=== PATIENT | female | born 1960 | race Caucasian/White ===

== ENCOUNTER 2017-01-30 08:51 | Inpatient (IN) | payer BC, OTHER ==
--- NOTE | 2017-01-17 12:24 | PAT Medication Instructions ---
Service Date Jan 17, 2017. Current Home Medication List Ascorbic Acid (Vitamin C), 500 MG PO QAM Cholecalciferol (Vitamin D3), 1 TAB PO QAM Ibuprofen (Motrin), 800 MG PO Q4H PRN for N Levothyroxine Sodium (Levothyroxine Sodium), 1 TAB PO QAM Multiple Vitamins W/ Minerals (Hair Skin and Nails Formu), 1 TAB PO QAM [Hydrocodone Apap], 1 TAB PO Q6H PRN for RN [Vitamin B12], 1 TAB PO QAM Medication Instructions For Your Scheduled Surgery - Hold the following medications the morning of surgery: [Vitamin B12], 1 TAB PO QAM Multiple Vitamins W/ Minerals (Hair Skin and Nails Formu), 1 TAB PO QAM Ascorbic Acid (Vitamin C), 500 MG PO QAM Cholecalciferol (Vitamin D3), 1 TAB PO QAM Ibuprofen (Motrin), 800 MG PO Q4H PRN (otherwise okay to continue per surgeon) - Take the following medications the morning of surgery with a sip of water OTHERWISE NOTHING TO EAT OR DRINK AFTER MIDNIGHT: [Hydrocodone Apap], 1 TAB PO Q6H PRN (okay to take if needed up to 4 hours prior to surgery) Levothyroxine Sodium (Levothyroxine Sodium), 1 TAB PO QAM - Take the following medications as scheduled the night before surgery: [Hydrocodone Apap], 1 TAB PO Q6H PRN If you have any questions please call us at [phone] or [phone] or [phone]
--- NOTE | 2017-01-17 13:18 | DIAGNOSTIC IMAGING REPORT ---
CHEST 2 VIEWS ROUTINE CLINICAL HISTORY: Preoperative chest COMPARISON STUDY: No previous studies for comparison. FINDINGS: The cardiac and mediastinal contours are normal. There is no evidence of focal pulmonary consolidation. There is no evidence of failure. No pleural effusions are visualized.[ There are old healed clavicular fractures. IMPRESSION: No active disease in the chest. Electronically signed by: Michael Thomas M.D. 01/17/2017 1:16 PM Dictated Date/Time: 01/17/2017 1:12 PM
[2017-01-17 13:49] LABS: BASO % 0.6 %; BASO ABS # 0.03 K/uL (0-0.2); COMPLETE YES; EOS % 2.9 %; HEMATOCRIT 41.9 % (37-47); IG% 0.4 %; LYMPH % 28.8 %; LYMPH ABS # 1.51 K/uL (1.2-3.4); MEAN CELL VOLUME 86.2 fL (80-100); MEAN CORPUSCULAR HEMOGLOBIN 30.2 pg (25-34); MEAN CORPUSCULAR HGB CONC 35.1 g/dl (32-36); MONO % 7.6 %; NEUT % 59.7 %; PLATELET COUNT 260 K/uL (130-400); RED BLOOD COUNT 4.86 M/uL (4.2-5.4); WHITE BLOOD COUNT 5.25 K/uL (4.8-10.8)
[2017-01-17 13:52] LABS: PARTIAL THROMBOPLASTIN RATIO 0.9; PROTHROMBIN TIME (PATIENT) 10.5 SECONDS (9.0-12.0)
[2017-01-17 14:03] LABS: ESTIMATED AVERAGE GLUCOSE 100 mg/dl; HA1C FLAG Normal (Normal)
[2017-01-17 14:05] LABS: URINE APPEARANCE CLEAR (CLEAR); URINE BILIRUBIN NEG (NEG); URINE COLOR YELLOW; URINE EPITHELIAL CELL AUTO >30 /lpf (0-5); URINE NITRITE NEG (NEG); URINE PH 6.5 (4.5-7.5); UROBILINOGEN NEG (NEG)
[2017-01-17 14:07] LABS: MANUAL MICROSCOPIC REQUIRED? NO; REVIEW REQ? NO
[2017-01-17 14:50] LABS: BUN/CREATININE RATIO 19.1 (10-20); CALCIUM 9.2 mg/dl (8.5-10.1); CREATININE 0.75 mg/dl (0.60-1.20); POTASSIUM 4.4 mmol/L (3.5-5.1)
--- NOTE | 2017-01-29 14:36 | HISTORY & PHYSICAL EXAMINATION ---
DATE OF ADMISSION: 01/30/2017 CHIEF COMPLAINT: Left knee pain. HISTORY OF PRESENT ILLNESS: The patient is a 56-year-old female with known osteoarthritis about her left knee. She has had previous corticosteroid injections as well as over the counter anti-inflammatory use. She continues to have pain and disability with activities of daily living. She has pain with prolonged weightbearing and standing activities. She has difficulty with kneeling, bending, and squatting activities. Due to ongoing pain and disability, she now desires to proceed with left total knee arthroplasty. PAST MEDICAL HISTORY: Hypothyroidism. PAST SURGICAL HISTORY: Tubal ligation, bladder surgery, and breast surgery. MEDICATIONS: [place] 5/325 q. 6 hours p.r.n. pain, ibuprofen 800 mg q. 8 hours p.r.n., vitamin B12 at 1000 mcg daily, vitamin C 500 mg daily, vitamin D 1000 units daily, and levothyroxine sodium 75 mcg daily. ALLERGIES: No known drug allergies. SOCIAL HISTORY AND REVIEW OF SYSTEMS: Noncontributory. PHYSICAL EXAMINATION: GENERAL: Well-nourished and well-developed, thin female, who appears her stated age. HEENT: Normocephalic and atraumatic. Extraocular movements intact. Oropharynx is pink and moist. NECK: Supple without adenopathy. LUNGS: Clear to auscultation bilaterally. HEART: Regular rate and rhythm. ABDOMEN: Soft, nontender, and nondistended. EXTREMITIES: The upper extremities are within normal limits. The left knee has a slight varus alignment. She complains primarily of medial compartment pain. Her range of motion is from 0-135 degrees. X-RAYS: X-rays were reviewed. She has a varus aligned knee. She has [id number] arthritis of the medial compartment with complete loss of the joint space. There is mild osteophyte formation about the medial compartment. She has mild to moderate degenerative change about the patellofemoral joint as well. ASSESSMENT: Left knee degenerative joint disease. PLAN: Risks versus benefits were discussed. Consent was obtained. The patient's primary care physician is [facility] in [place]. We will proceed with left total knee arthroplasty upon preop workup and medical clearance.
[2017-01-30] VITALS (7 sets, daily range): BP systolic 108–138; BP diastolic 65–85; PULSE 89–108; TEMP 36.2–36.9; O2SAT 94–100; Ht 149.9 cm; Wt 67.6 kg
[~2017-01-30] VITALS: Ht 149.9 cm; Wt 67.6 kg
[2017-01-30] MEDS: TRANEXAMIC ACID INJ 1,000 MG in SODIUM CHLORIDE 0.9% 100ML 100 ML IV SCH ×2 (06:30→11:19)
[~2017-01-30 08:51] MED LIST: ACETAMINOPHEN 500 MG TAB PO SCH; ASCO500T3 PO; BUPIVACAINE 0.25% 30 ML VIAL ONE; BUPIVACAINE 0.5 % 5 MG/1 ML PF 10ML VIAL ONE; CEFAZOLIN 1000MG IV PUSH 5 ML IV SCH; CHOL1000 PO; CeleBREX 200 MG CAP PO SCH; DEXAMETHASONE 4 MG TAB PO SCH; FAMOTIDINE 20 MG TAB PO SCH; GABAPENTIN 300 MG CAP PO SCH; HYDROCODONE APAP PO; IBUP-1428 PO; LACTATED RINGER'S 1000ML 1,000 ML IV SCH; LACTATED RINGER'S 1000ML 500 ML IV ONE; LACTATED RINGER'S 1000ML IV SCH; LEVO75TA5 PO; METOCLOPRAMIDE HCL 10 MG TAB PO SCH; MISSING PHYSICIAN SIGNATURE ON ORDER SCH; MULT-1018 PO; ROPIVACAINE 5MG/ML 30 ML 150 MG, BUPIVACAINE/EPINEPHR 0.5% MPF 30 ML, KETOROLAC TROMETH... INFIL SCH; VITAMIN B12 PO
[2017-01-30] MEDS ORDERED: FENTANYL CITRATE INJ 50 MCG/1 ML 2 ML VIAL IV PRN (09:00)
[2017-01-30] MEDS ORDERED: ONDANSETRON INJ 2 MG/ML 2 ML VIAL IV PRN ×2 (09:00→13:30)
[2017-01-30] MEDS ORDERED: ATROPINE SULFATE 0.1 MG/ML 5ML SYR IV PRN (09:00)
[2017-01-30] MEDS ORDERED: EpHEDrine SULFATE INJ 50 MG/ML AMP IV PRN (09:00)
--- NOTE | 2017-01-30 09:41 | History & Physical Bridge Note ---
H&P Re-Evaluation Bridge Note: I have examined the patient, reviewed the History & Physical and in the interval since the performance of the History & Physical I have noted the following changes of clinical significance: No changes noted
[2017-01-30] MEDS ORDERED: FENTANYL CITRATE INJ 50 MCG/1 ML 2 ML VIAL ONE (10:11)
[2017-01-30] MEDS ORDERED: MIDAZOLAM HCL 1 MG/ML 2ML VIAL ONE ×2 (10:11)
[2017-01-30] MEDS ORDERED: POVIDONE-IODINE OP SOLN 30 ML BTL ONE (11:27)
[2017-01-30] MEDS ORDERED: ORTHO JOINT ANESTHETIC ONE (11:27)
[2017-01-30] MEDS ORDERED: BACITRACIN 50000 UNIT VIAL ONE (11:27)
[2017-01-30] MEDS ORDERED: PROPOFOL IV EMULSION 10 MG/ML 20 ML VIAL IV ONE (12:39)
[2017-01-30] MEDS ORDERED: ONDANSETRON INJ 2 MG/ML 2 ML VIAL ONE (12:39)
[2017-01-30] MEDS ORDERED: LIDOCAINE HCL 2% 2 ML VIAL (20MG/ML) ONE (12:39)
--- NOTE | 2017-01-30 12:45 | [facility] Post Operative Brief Note ---
Immediate Operative Summary Operative Date Jan 30, 2017. Pre-Operative Diagnosis Left knee degenerative joint disease Post-Operative Diagnosis same as pre-operative Procedure(s) Performed Left total knee arthroplasty-cemented Surgeon Dr. Chicas [employer] Surgeon(s) Abel Garcia PA-C Estimated Blood Loss 20ml Findings severe oa Specimens Specimen A: Left knee bone and tissue Complication(s) None Disposition Recovery Room / PACU
--- NOTE | 2017-01-30 13:09 | OPERATIVE REPORT ---
DATE OF OPERATION: 01/30/2017 PREOPERATIVE DIAGNOSIS: Osteoarthritis, left knee. POSTOPERATIVE DIAGNOSIS: Osteoarthritis, left knee. PROCEDURE: Left total knee arthroplasty. SURGEON: Dr. Chicas. MECHANICAL SHOVEL OPERATOR: JULIO Ball ANESTHESIA: Spinal. COMPLICATIONS: None. IMPLANTS USED: Femoral size 2, tibia size 1, tibial poly 9, and patella size 29. OPERATION AND FINDINGS: Following induction of spinal anesthesia, the patient's left leg was prepped and draped in the usual sterile manner. Limb was exsanguinated with an Esmarch bandage and tourniquet was inflated to 350 mmHg. A longitudinal incision was made anteriorly. Subcutaneous tissue was sharply dissected. Electrocautery was used for hemostasis. Prepatellar bursa was incised and median parapatellar incision was performed. Patella was everted and the knee was flexed. Fat pad was removed to aid in visualization and the anterior and posterior cruciate ligaments were removed. The medial face of the tibia was cleared of soft tissue first with a Bovie and a Gomez elevator. This tissue was retracted posteriorly using a blunt Hohmann. A [place] retractor was used to expose the synovium above on the anterior aspect of the femur and this was removed down to bone. The PSI guide was placed on the distal femur and two pins were placed anteriorly and kept in position and two additional pins were placed distally and removed. The distal femoral cutting block was placed in position and the distal femoral cut was used in the +0 setting. Next, the cutting block was removed and the femoral 2 block was placed in the distal end of the femur. Care was taken to ensure appropriate external rotation and feeler gauge was used to ensure no notching would occur. The femoral block was centered on the distal femur and in the medial and lateral direction and was fixed using two bone screws. The gold pins were then removed. The oscillating saw was used to create the bone cuts and the distal femoral cutting block was removed and the reciprocating saw was used to further trim the femoral cuts as well as a deep in the area for the trochlear groove. Next, posterior condyle remnants were removed. Following this, a meniscal clamp and knife were utilized to remove the anterior portion of both medial and lateral meniscus. The proximal tibia PSI guide was placed into position and the proximal tibial cutting guide was screwed into position. The extra medullary alignment guide was utilized to ensure appropriate alignment. The proximal tibia was cut and the proximal tibial cutting block was removed and this bone fragment was removed. The appropriate guide was used to perform the notch cut on the distal femur and a lamina salesperson flowers and a cochlear knife were utilized to finish both medial and lateral meniscectomies to remove any remnants of the posterior or anterior cruciate ligaments. Following this, the distal femoral component was impacted into position and blunt [place] was used to sublux the tibia anteriorly. The proximal tibia was sized and a 1 tibial tray was chosen as the size to be used. This was put into position and appropriate external rotation and a double check with extramedullary alignment guide was performed. The canal for the tibial stem was prepared first with a 17 mm drill and then the punch and a mallet and the trial tibial poly was placed. A 9 was chosen the size to be used. It was brought to extension and the patella was prepared with the patellar reamer. A 29 component was chosen the size to be used. The trial component was placed and knee was taken through a full range of motion and there was found to be no lateral subluxation of the tibia. No lateral release was required. The trials were all removed. The final components were obtained and assembled. Cement was mixed. The knee was thoroughly irrigated and the ortho mix was injected about the knee joint. The final components were cemented into position. After thoroughly suctioning and drying the bone ends, all excess cement was removed. The knee was held in extension while the cement hardened. The wound was irrigated and closed over a Hemovac drain. #1 Vicryl was used to close the extensor mechanism. Subcutaneous tissues closed using 0 Dexon. Skin was closed with guillermina. Sterile dressing of Adaptic, 4 x 4's, sterile Webril, and Kvng was applied. The patient tolerated the procedure well. Due to the complex nature of the procedure, the entire surgery was performed with the operational assistance of JULIO Ball. The activities assistant, under direct supervision, was involved in the actual performance of all aspects of the surgical procedure including hemostasis, tissue retraction and incision, instrument management, patient positioning, and wound closure. DISPOSITION: Recovery room, stable. I attest to the content of the Intraoperative Record and any orders documented therein. Any exception s are noted below.
[2017-01-30] MEDS ORDERED: ALUMINUM/MAGNESIUM/SIMETH (MAALOX MAX) 30 ML UDC PO PRN (13:30)
[2017-01-30] MEDS ORDERED: MoRPHine SULFATE 2 MG/ML CARP IV PRN (13:30)
[2017-01-30] MEDS ORDERED: ZOLPIDEM TARTRATE 5 MG TAB PO PRN (13:30)
[2017-01-30] MEDS ORDERED: METOCLOPRAMIDE HCL INJ 5 MG/ML 2 ML VIAL IV PRN (13:30)
--- NOTE | 2017-01-30 13:49 | DIAGNOSTIC IMAGING REPORT ---
TWO VIEWS LEFT KNEE CLINICAL HISTORY: Postoperative examination. FINDINGS: AP and crosstable lateral portable views of the left knee are obtained. A left knee arthroplasty is in near anatomic alignment. There has been undersurface remodeling of the patella. No acute fracture is seen. There are expected postoperative changes around the knee including a surgical drain, soft tissue edema, and subcutaneous gas. IMPRESSION: Expected postoperative changes status post left knee arthroplasty. No acute fracture is seen. Electronically signed by: Casper Geronimo M.D. 01/30/2017 1:48 PM Dictated Date/Time: 01/30/2017 1:47 PM
--- NOTE | 2017-01-30 13:51 | Anesthesiology Progress Note ---
Anesthesia Post Op Note Date & Time Jan 30, 2017 at 13:50 Vital Signs Pain Intensity: 0 Vital Signs Past 12 Hours Date Time Temp Pulse Resp B/P (MAP) Pulse Ox O2 Delivery O2 Flow Rate FiO2 01/30/17 13:40 81 16 115/76 98 Nasal Cannula 2 01/30/17 13:30 77 16 105/65 98 Nasal Cannula 2 01/30/17 13:20 36.1 87 16 97/61 97 Nasal Cannula 2 01/30/17 09:19 36.8 90 20 128/85 95 Room Air Notes Mental Status: alert / awake / arousable, participated in evaluation Pt Amnestic to Procedure: Yes Nausea / Vomiting: adequately controlled Pain: adequately controlled Airway Patency, RR, SpO2: stable & adequate BP & HR: stable & adequate Hydration State: stable & adequate Neuraxial Anesthesia: was administered, sensory block is resolving Anesthetic Complications: no major complications apparent
[2017-01-30] MEDS ORDERED: MoRPHine SULFATE 4 MG/ML 1 ML CARP\\VIAL IV PRN (15:15)
[2017-01-30] MEDS: D5W AND 1/2NSS + 20MEQ KCL 1,000 ML IV SCH (15:31)
[2017-01-30] MEDS: KETOROLAC TROMETHAMINE 30 MG/ML VIAL IV. SCH ×2 (15:33→22:07)
[2017-01-30] MEDS: ACETAMINOPHEN 500 MG TAB PO SCH ×2 (16:34→22:07)
[2017-01-30] MEDS: FERROUS GLUCONATE 324 MG TAB PO SCH (18:40)
[2017-01-30] MEDS: OXYCODONE HCL IR 5 MG TAB (IMMEDIATE RELEASE) PO PRN (19:03)
[2017-01-30] MEDS: CEFAZOLIN IV 1,000 MG in SYRINGE 0 ML IV SCH (19:39)
[2017-01-30] MEDS: ASPIRIN 81 MG ECTAB PO SCH (21:05)
[2017-01-30] MEDS: DOCUSATE SODIUM 100 MG CAP PO SCH (21:05)
[2017-01-31] VITALS (8 sets, daily range): BP systolic 102–160; BP diastolic 65–83; PULSE 75–94; TEMP 36.6–37.1; O2SAT 95–98
[2017-01-31] MEDS: OXYCODONE HCL IR 5 MG TAB (IMMEDIATE RELEASE) PO PRN ×4 (00:06→19:47)
[2017-01-31] MEDS: D5W AND 1/2NSS + 20MEQ KCL 1,000 ML IV SCH ×2 (00:26→10:54)
[2017-01-31] MEDS: KETOROLAC TROMETHAMINE 30 MG/ML VIAL IV. SCH ×2 (04:00→09:50)
[2017-01-31] MEDS: CEFAZOLIN IV 1,000 MG in SYRINGE 0 ML IV SCH (04:01)
[2017-01-31] MEDS: ACETAMINOPHEN 500 MG TAB PO SCH ×3 (05:27→21:30)
[2017-01-31] MEDS: LEVOTHYROXINE 75 MCG TAB PO SCH (05:27)
[2017-01-31 06:37] LABS: HEMATOCRIT 27.8 % (37-47); MEAN CELL VOLUME 87.4 fL (80-100); MEAN CORPUSCULAR HEMOGLOBIN 29.6 pg (25-34); MEAN CORPUSCULAR HGB CONC 33.8 g/dl (32-36); MEAN PLATELET VOLUME 8.4 fL (7.4-10.4); PLATELET COUNT 222 K/uL (130-400); RED BLOOD COUNT 3.18 M/uL (4.2-5.4); WHITE BLOOD COUNT 8.38 K/uL (4.8-10.8)
[2017-01-31 07:07] LABS: BUN/CREATININE RATIO 16.4 (10-20); CALCIUM 7.8 mg/dl (8.5-10.1); CREATININE 0.77 mg/dl (0.60-1.20); POTASSIUM 4.3 mmol/L (3.5-5.1)
[2017-01-31] MEDS ORDERED: DEXAMETHASONE INJ 10 MG in SYRINGE 0 ML IV SCH (07:30)
--- NOTE | 2017-01-31 08:25 | Orthopedic Progress Note ---
Orthopedic Progress Note Date of Service Jan 31, 2017. Subjective Post OP Day: 1 Reports: feeling well, Denies: complaints Objective calves soft nontender, N/V intact, dressing C/D/I, A&O x3, toes mobile Date Time Temp Pulse Resp B/P (MAP) Pulse Ox O2 Delivery O2 Flow Rate FiO2 01/31/17 07:20 Room Air 01/31/17 06:51 36.7 90 16 113/68 (83) 98 Room Air 01/31/17 03:32 36.6 84 16 102/65 (77) 95 Room Air 01/31/17 00:29 Room Air 01/30/17 23:52 36.6 91 16 117/72 (87) 94 Room Air 01/30/17 18:35 36.7 108 17 138/76 (96) 96 Room Air 01/30/17 17:07 36.9 94 17 108/65 (79) 96 Room Air 01/30/17 16:06 36.6 101 18 119/76 (90) 98 Nasal Cannula 2.0 01/30/17 15:02 36.2 90 17 129/79 (96) 100 Nasal Cannula 2.0 01/30/17 14:00 97 Nasal Cannula 2.0 01/30/17 14:00 36.2 89 16 127/83 (98) 97 Nasal Cannula 2.0 01/30/17 14:00 97 Nasal Cannula 2.0 01/30/17 13:50 36.6 88 16 122/73 98 Nasal Cannula 2 01/30/17 13:40 81 16 115/76 98 Nasal Cannula 2 01/30/17 13:30 77 16 105/65 98 Nasal Cannula 2 01/30/17 13:20 36.1 87 16 97/61 97 Nasal Cannula 2 01/30/17 09:19 36.8 90 20 128/85 95 Room Air Laboratory Results 24 Hours: Test 01/31/17 06:27 Hematocrit 27.8 % Hemoglobin 9.4 g/dL Assessment & Plan Assessment: POD 1 s/p Left TKA Plan: PT/OT Planning for OPPT. Plan for dc to home Friday. Inhouse Planning Pain Management: Celebrex, Toradol, Morphine, PO Tylenol, Oxy IR DVT Prophylaxis: TEDs, SCDs, ASA Discharge Planning Discharge Planning: home with oppt
[2017-01-31] MEDS: DOCUSATE SODIUM 100 MG CAP PO SCH ×2 (08:29→21:30)
[2017-01-31] MEDS: ASPIRIN 81 MG ECTAB PO SCH ×2 (08:29→21:30)
[2017-01-31] MEDS: MULTIVITAMIN TAB PO SCH (08:29)
[2017-01-31] MEDS: FERROUS GLUCONATE 324 MG TAB PO SCH ×3 (08:30→17:32)
[2017-01-31] MEDS: PANTOprazole SOD 40 MG TAB PO SCH (08:30)
--- NOTE | 2017-01-31 08:30 | Anesthesiology Progress Note ---
Anesthesia Post Op Note Date & Time Jan 31, 2017 at 08:30 Vital Signs Pain Intensity: 5.0 Vital Signs Past 12 Hours Date Time Temp Pulse Resp B/P (MAP) Pulse Ox O2 Delivery O2 Flow Rate FiO2 01/31/17 07:20 Room Air 01/31/17 06:51 36.7 90 16 113/68 (83) 98 Room Air 01/31/17 03:32 36.6 84 16 102/65 (77) 95 Room Air 01/31/17 00:29 Room Air 01/30/17 23:52 36.6 91 16 117/72 (87) 94 Room Air Notes Mental Status: alert / awake / arousable, participated in evaluation Pt Amnestic to Procedure: Yes Nausea / Vomiting: adequately controlled Pain: adequately controlled Airway Patency, RR, SpO2: stable & adequate BP & HR: stable & adequate Hydration State: stable & adequate Neuraxial Anesthesia: was administered, sensory block resolved Anesthetic Complications: no major complications apparent
[2017-01-31] MEDS ORDERED: ACET-24 PO (08:41)
[2017-01-31] MEDS ORDERED: CLB200 PO (08:41)
[2017-01-31] MEDS ORDERED: ASPEC81 PO (08:41)
[2017-01-31] MEDS ORDERED: ONDA8TAB6 PO (08:41)
[2017-01-31] MEDS ORDERED: RXC5 PO (08:41)
--- NOTE | 2017-01-31 08:43 | Discharge Instructions ---
Discharge Instructions Date of Service Jan 31, 2017. Admission Reason for Admission: Left Knee Osteoarthritis Discharge Discharge Diagnosis / Problem: SP LEFT TKA Discharge Goals Goal(s): Decrease discomfort, Improve function, Increase independence Activity Recommendations Activity Limitations: per Instructions/Follow-up section . Instructions / Follow-Up Instructions / Follow-Up ACTIVITY RECOMMENDATIONS: SELF CARE INSTRUCTIONS AFTER TOTAL KNEE REPLACEMENT A. You may need to continue a physical therapy program after discharge from the hospital. There are several options available to you. Your doctor will assist you in selecting the best one for you. 1. An out-patient facility 2 to 3 times a week for therapy or home therapy. 2. Continue working on all exercises taught to you in the hospital. Your goals should be to increase bending of your knee to 90 degrees and beyond and to fully straighten your knee. B. You may progress at your own pace from walking with a walker or crutches to a cane; then to no assistive devices. C. Make walking a part of your daily routine. Be up as much as comfortable with rest periods throughout the day. Rest with leg elevation is very important. Use the ice wrap frequently for the first 3-4 weeks. D. There are no restrictions on activities. You may ride in a car, shop, participate in beater worker helper and all social activities. E. Wear the long elastic stockings (CHRYSTAL hose) 20 hours a day for 2 weeks after surgery. They can be removed several times a day for laundering and for a bath. F. You may shower, no tub baths until cleared by your doctor. SPECIAL CARE INSTRUCTIONS: VERY IMPORTANT TO READ AND REVIEW A. There are a few signs you need to watch for after you are home. Call [facility] if you notice any of the followin. Increased severe knee pain. Some pain is expected especially when you exercise. 2. Increased swelling in your leg or knee; pain or swelling of the calf muscle in either lower leg. 3. Any fluid drainage from the incision. 4. Shortness of breath or chest pain. B. Please call [facility] at if you have any concerns or questions about your operation or recovery. The doctor or his nurse will return your call promptly. C. You must take antibiotics before dental work, bladder, bowel or other surgery. Your doctor will provide you with a permanent care to carry describing this precaution. IMPORTANT: * REMEMBER TO TAKE ASPIRIN, 81 MG, TWICE DAILY FOR 4 WEEKS UNLESS OTHERWISE DIRECTED. THIS IS YOUR BLOOD THINNER. * HIGH RISK PATIENTS MAY BE PRESCRIBED A STRONGER BLOOD THINNER. THIS WILL BE PROVIDED AT DISCHARGE. * CALL IF INCREASED PAIN, REDNESS, DRAINAGE OR FEVER GREATER THAT 101. * WEAR CHRYSTAL HOSE 20 HOURS PER DAY FOR 2 WEEKS. * YOU MAY HAVE A LARGE BAND-AID LIKE DRESSING (SILVERON). THIS WILL REMAIN ON YOUR INCISION FOR 7 DAYS, THEN CAN BE REMOVED. IF INCISION IS LEAKING THROUGH DRESSING, CALL THE OFFICE . UNDER THE SILVERLON, YOU HAVE A ZIPLINE CLOSURE. THIS IS IN PLACE OF [place]. KEEP THIS COVERED IT MAY CATCH ON YOUR CLOTHING. THIS WILL BE REMOVED AT YOUR 2 WEEK POST OP VISIT. OK TO SHOWER. FOLLOW UP VISIT: If appointment is not already scheduled: Please call [facility] to make a follow-up appointment for 2 weeks after your surgery at . Current Hospital Diet Patient's current hospital diet: Regular Diet Discharge Diet Recommended Diet: Regular Diet Procedures Procedures Performed: Left total knee arthroplasty-cemented Pending Studies Studies pending at discharge: no Laboratory Results Hemoglobin A1c Test 01/17/17 12:38 Range/Units Estimated Average Glucose 100 mg/dl Hemoglobin A1c 5.1 4.5-5.6 % Medical Emergencies . Who to Call and When: Medical Emergencies: If at any time you feel your situation is an emergency, please call 911 immediately. . Non-Emergent Contact Non-Emergency issues call your: Surgeon . "Provider Documentation" section prepared by Tessy Liu. . VTE Core Measure Inpt VTE Proph given/why not?: Other Anticoagulation, T.E.D. Stockings, SCD's [place] Drug Monitoring Program Search Results: patient reviewed within database, no issues identified
[2017-01-31] MEDS: MAGNESIUM HYDROXIDE SUSP 30 ML UDC PO PRN ×2 (09:50→16:08)
[2017-01-31] MEDS ORDERED: NURSING VERBAL MED ORDER ONE (10:45)
[2017-01-31] MEDS: CeleBREX 200 MG CAP PO SCH (21:30)
[2017-02-01] MEDS: OXYCODONE HCL IR 5 MG TAB (IMMEDIATE RELEASE) PO PRN ×3 (00:27→11:36)
[2017-02-01] MEDS: ACETAMINOPHEN 500 MG TAB PO SCH (06:08)
[2017-02-01] MEDS: LEVOTHYROXINE 75 MCG TAB PO SCH (06:08)
[2017-02-01 06:32] VITALS: BP 137/86; PULSE 88; TEMP 36.9; O2SAT 97
[2017-02-01] MEDS: PANTOprazole SOD 40 MG TAB PO SCH (07:37)
[2017-02-01] MEDS: FERROUS GLUCONATE 324 MG TAB PO SCH (07:37)
[2017-02-01] MEDS: DOCUSATE SODIUM 100 MG CAP PO SCH (07:37)
[2017-02-01] MEDS: MULTIVITAMIN TAB PO SCH (07:37)
[2017-02-01] MEDS: ASPIRIN 81 MG ECTAB PO SCH (07:37)
[2017-02-01] MEDS: CeleBREX 200 MG CAP PO SCH (07:37)
--- NOTE | 2017-02-01 08:41 | Orthopedic Progress Note ---
Orthopedic Progress Note Date of Service Feb 01, 2017. Subjective Post OP Day: 2 Reports: feeling well, Denies: chest pain, SOB, nausea / vomiting, light headedness, calf pain Additional Notes: SILVERLON DRESSING SATURATED Objective calves soft nontender, N/V intact, capillary refill less than 2 sec., incision C /D/I (SILVERLON WINDOW SATURATED WITH BLOODY DRAINAGE. REMOVED. NO ACTIVE BLEEDING. APPLIED PRESSURE DRESSING.), A&O x3, toes mobile Date Time Temp Pulse Resp B/P (MAP) Pulse Ox O2 Delivery O2 Flow Rate FiO2 02/01/17 06:32 36.9 88 16 137/86 (103) 97 Room Air 01/31/17 23:45 Room Air 01/31/17 23:30 36.9 94 16 138/83 (101) 95 Room Air 01/31/17 19:40 Room Air 01/31/17 16:12 37.1 92 17 135/80 (98) 96 Room Air 01/31/17 12:29 36.9 82 21 150/82 (104) 95 Room Air 01/31/17 10:01 97 Room Air 01/31/17 09:10 36.9 75 20 148/82 (104) 97 Room Air Assessment & Plan Assessment: POD 2 s/p Left TKA Plan: PT/OT Planning for OPPT. Plan for dc to home Friday. DVT PROPH- ASA PAIN MANAGEMENT- JUSTINO, TYLENOL PRESSURE DRESSING TO INCISION. WILL RECHECK AT LUNCH TIME. IF NO FURTHER DRAINAGE, CAN REAPPLY SILVERLON AND DC HOME. Inhouse Planning Pain Management: Celebrex, Toradol, Morphine, PO Tylenol, Oxy IR DVT Prophylaxis: TEDs, SCDs, ASA Discharge Planning Discharge Planning: home with oppt
[2017-02-01 11:47] VITALS: BP 137/86; PULSE 88; TEMP 36.9; O2SAT 97
--- NOTE | 2017-02-12 08:18 | DISCHARGE SUMMARY ---
CHIEF COMPLAINT: Left knee pain. Please see complete history and physical examination. HOSPITAL COURSE: The patient underwent left total knee arthroplasty without complication. She tolerated the procedure well and was discharged to recovery room in stable condition. Her postoperative course was relatively uneventful. Her postoperative pain was reasonably well controlled with a combination of spinal anesthesia, intraoperative joint injection, IV, and oral pain medications. She was started on aspirin for DVT prophylaxis. She also utilized CHRYSTAL stockings and SCDs for additional prophylaxis. Her H&H was stable and did not require transfusion. Her surgical drain was discontinued by postoperative day 2, her surgical dressing will remain in place for approximately 7 days postoperative. She tolerated postoperative physical therapy reasonably well where she was bending her knee and ambulating appropriately. She was discharged home on postoperative day 2. She will continue her physical therapy at home. She will continue her aspirin for DVT prophylaxis and follow up in our office in approximately 10-14 days for initial postop evaluation.
== END 2017-02-01 12:50 | disposition home or self-care (01) | DRG 470 ==
LOC: C.ACU 08:51 → C.3E 10:24 → ENRESERV 13:42
PROC: 0SRD0J9 Replacement of Left Knee Joint with Synthetic Substitute, Cemented, Open Approach (ICD-10-PCS; principal; 2017-01-30 11:45)
DX: M17.12 Unilateral primary osteoarthritis, left knee (principal); E03.9 Hypothyroidism, unspecified; E66.9 Obesity, unspecified; Z68.30 Body mass index [BMI] 30.0-30.9, adult

== ENCOUNTER 2020-04-10 14:21 | Inpatient (IN) ==
--- NOTE | 2020-04-10 16:09 | Emergency Department Note ---
Impression & Plan Acute respiratory failure with hypoxia, Pneumonia due to COVID-19 virus, Admitted to intensive care unit ED Provider Note CHIEF COMPLAINT: Shortness of breath HISTORY OF PRESENTING ILLNESS: This is a 59-year-old female who presents to the emergency department with complaint of shortness of breath. 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 She states that she started feeling like she had a cold about 3 days ago with a mild cough and feeling rundown. She did not start feeling short of breath until today. The shortness of breath is worse with exertion and better at rest, although she notes that she feels short of breath at rest now. She denies any chest pain, but does note that she has some tightness in her chest when she coughs. She denies any history of cardiac or lung problems. She is a former smoker from many years ago and denies any history of asthma or COPD. She denies any headaches, fevers, chills, back pain, abdominal pain, nausea/vomiting, diarrhea, urinary complaints, loss of taste or smell. 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 REVIEW OF SYSTEMS: A complete 10 point review of systems was reviewed with the patient with pertinent positives and negatives as per history of present illness. All else were negative. PAST MEDICAL HISTORY: Dyslipidemia, hypothyroidism, depression, anxiety SOCIAL HISTORY: Lives at home, she is a former smoker ALLERGIES: No known allergies PHYSICAL EXAM: CONSTITUTIONAL: Pleasant and cooperative. Nontoxic-appearing and in no acute distress. Mildly dehydrated, but otherwise well appearing and well nourished. HEENT: Normocephalic, atraumatic. Pharynx normal. Tacky mucous membranes. NECK: Supple, full active range of motion without discomfort. No cervical adenopathy. RESPIRATORY: Diffuse bilateral rhonchi without wheezing, crackles, or stridor. Mildly labored breathing and mildly tachypneic, but no accessory muscle use. Equal expansion bilaterally. CARDIOVASCULAR: Tachycardic, regular rhythm with no murmurs, rubs or gallops. Normal peripheral perfusion, 2+ distal pulses in all 4 extremities. No pitting edema. GASTROINTESTINAL: Soft, nontender, nondistended, obese abdomen. No palpable masses or HSM. Bowel sounds present in all quadrants. MUSCULOSKELETAL: No calf tenderness to palpation bilaterally. Negative Homans' sign bilaterally. Full range of motion of all joints without discomfort. INTEGUMENTARY: No rash or other significant dermatologic conditions noted. NEUROLOGIC: Alert and oriented X 4 with normal affect. Normal strength and sensation in all 4 extremities. Normal speech. Normal gait observed. ED COURSE AND MEDICAL DECISION MAKING: CC: Patient presenting with complaint of shortness of breath DIFFERENTIAL DIAGNOSIS: Includes, but not limited to COVID-19 infection, influenza, bronchitis, pneumonia, pulmonary embolism, acute coronary syndrome, pneumothorax, pulmonary edema, among others. INTERPRETATION OF LABS: Leukopenia, no anemia, normal platelets, no significant electrolyte abnormalities, normal renal function, normal liver enzymes. Troponin is within normal limits, but slightly detectable. Coagulation factors within normal limits. Influenza A/B negative. SARS-CoV-2 RNA is POSITIVE. IMAGING: XR chest 1V portable CLINICAL HISTORY: Shortness of breath COMPARISON STUDY: 10/22/2019 FINDINGS: The heart is borderline enlarged. There are diffuse bilateral groundglass pulmonary opacities. Diagnostic considerations include pulmonary edema, multifocal pneumonia, or rare entities such as acute interstitial lung disease, or alveolar proteinosis.[ IMPRESSION: 1. Diffuse bilateral groundglass pulmonary opacities. Likely diagnostic considerations include pulmonary edema versus a multifocal pneumonia. Clinical and radiographic follow-up is recommended EKG: Shows sinus tachycardia with a rate of 109 bpm, normal intervals, no ectopy, nonspecific T wave changes in several leads, but no ST elevation or depression and no significant change when compared to previous EKG from 10/22/2019 by my interpretation. MEDICATION RECONCILIATION: I attest that I have personally reviewed the patient's current medication list. INITIAL VITAL SIGNS REVIEW: I reviewed the patient's initial vital signs and interpret them as follows: T: Afebrile; BP: Hypertensive; HR: Tachycardic; RR: Within; Pulse Ox: Within normal limits on room air. MDM SUMMARY: Patient was evaluated at bedside, history and physical exam performed. The patient was evaluated in room A4 under full airborne and contact precautions due to suspected Covid. The patient is alert and oriented, in no acute distress, resting calmly in the stretcher. She is in no acute respiratory distress, sitting upright and speaking in full sentences. She does complain of feeling short of breath and her breathing appears mildly labored, but is not significantly tachypneic. She is ranging 92-94% on room air at the time of my initial evaluation. She is noted to be mildly tachycardic with heart rates ranging 100 to 110 bpm. She denies any chest pain on initial evaluation. Cardiac monitoring: An order was placed for continuous cardiac monitoring. The monitor shows a rate of 107 bpm with sinus tachycardia rhythm. Lungs with diffuse rhonchi bilaterally, concerning for multifocal pneumonia. I do strongly suspect COVID-19 infection at this time. I am also concerned for possible PE, given her tachycardia and abrupt onset of shortness of breath today. Orders were placed for labs, influenza, COVID-19, troponin and EKG to evaluate for ACS, chest x-ray and CTA of the chest to evaluate for pulmonary embolism. 500 mL IV fluid bolus was ordered for hydration as a precaution, given the plan for CTA with IV contrast, and the patient does appear dehydrated clinically. Patient discussed with Dr. Flowers, who agrees with my assessment, plan, and disposition. I was called to the bedside by nursing staff stating that the patient had become significantly more short of breath and is now hypoxic at 89% on 3 L nasal cannula. She is also noted to be tachycardic in the 140s. I evaluated the patient at bedside, the patient was noted to be significantly short of breath and anxious and sats dropping to 70%. She was placed on 100% nonrebreather. Patient is complaining of chest pain at this time and is noted to be tachycardic on the monitor with rates ranging 130s to 140s. A repeat EKG was performed, which does not show any acute changes concerning for ACS. Dr. Flowers was notified and came to the bedside to evaluate the patient. The patient was placed on BiPAP and an ABG was ordered. She was also given IV Decadron 6 mg. The patient initially had good improvement on the BiPAP, and nursing staff was preparing to take her over to CT, however the patient began to decompensate again and was not maintaining good oxygenation with the BiPAP. The patient was intubated at bedside by Dr. Flowers, and he assumed care of the patient due to her critical status. She did develop hypotension and was placed on pressors. She was also given TPA for suspected pulmonary embolism, as she continued to be difficult to oxygenate after intubation. Please see Dr. Flowers's documentation for further details. The patient was admitted to intensive care in the [facility]- unit. The patient's is being updated over the phone by Dr. Dawson, hospitalist. The patient did have some improvement in her pressures and saturations prior to transfer to the [facility]- unit. The chart was completed utilizing [employer] Speech voice recognition software. Grammatical errors, random word insertions, pronoun errors, and incomplete sentences are an occasional consequence of this system due to software limitations, ambient noise, and hardware issues. Any formal questions or concerns about the content, text, or information contained within the body of this dictation should be directly addressed to the nurse practitioner for clarification. Past Med/Surg History Medical History (Updated 04/11/20 @ 00:28 by FÉLIX Maurer) Hypothyroidism Social History Smoking Status: Former smoker Hx Alcohol Use: Yes Alcohol type: beer, wine and hard liquor Hx Substance Use: No Preferred Language: Italian Communication Ability: Unable Quality Engineer Required: No Beliefs That Will Affect Care: None Current Living Situation: Spouse Other Information That Helps Us Care for You: No Feels Safe at Home: Declines to Answer Assistive Devices: None Allergies Allergies Allergy/AdvReac Type Severity Reaction Status Date / Time No Known Allergies Allergy Unknown Verified 04/10/20 17:24 Home Meds Home Medications Medication Instructions Recorded Confirmed ascorbic acid (vitamin C) [Vitamin 500 mg PO QAM #0 01/17/17 04/10/20 C] cholecalciferol (vitamin D3) 1 tab PO QAM 90 Days #90 tab 01/17/17 04/10/20 [Vitamin D3] cyanocobalamin (vitamin B-12) 1,000 mcg PO QAM #0 01/17/17 04/10/20 [Vitamin B-12] levothyroxine 75 mcg PO QAM 90 Days #90 tab 01/17/17 04/10/20 atorvastatin 40 mg PO QAM 04/10/20 04/10/20 ibuprofen 400 mg PO Q6H PRN 04/10/20 04/10/20 sertraline 100 mg PO QAM 04/10/20 04/10/20 Results & Data (ED) Vital Signs Vital Signs - 24 hr 04/10/20 14:22 04/10/20 14:24 04/10/20 16:22 Temperature 36.4 C L Temperature Source Temporal Artery Scan Pulse Rate 100 H Respiratory Rate 18 Respiratory Effort / Characteristics Non-Labored Respiratory Depth Normal Blood Pressure 162/91 H Blood Pressure Mean 114 Pulse Oximetry 94 92 92 Oxygen Delivery Method Room Air Room Air Oxygen Flow Rate 0 Fraction of Inspired Oxygen Sepsis Recent Fever Within 48 Hours No Sepsis New/Unexplained Change in Mental Status No Sepsis Action Taken by Nursing No Action Required Oxygen Flow Rate - Titration 3 Pulse Oximetry Post Tiitration 94 04/10/20 16:32 04/10/20 18:30 04/10/20 18:36 Temperature Temperature Source Pulse Rate 137 H 135 H Respiratory Rate 36 H 39 H Respiratory Effort / Characteristics Respiratory Depth Blood Pressure 142/116 H 150/90 H Blood Pressure Mean 118 105 Pulse Oximetry 94 93 92 Oxygen Delivery Method Nasal Cannula BiPAP Oxygen Flow Rate 3 Fraction of Inspired Oxygen Sepsis Recent Fever Within 48 Hours Sepsis New/Unexplained Change in Mental Status Sepsis Action Taken by Nursing Oxygen Flow Rate - Titration Pulse Oximetry Post Tiitration 04/10/20 18:40 04/10/20 18:44 04/10/20 18:45 Temperature Temperature Source Pulse Rate 128 H 130 H 126 H Respiratory Rate 27 H 30 H 27 H Respiratory Effort / Characteristics Respiratory Depth Blood Pressure 149/97 H 144/103 H 150/97 H Blood Pressure Mean 109 109 121 Pulse Oximetry 83 L 76 L 81 L Oxygen Delivery Method Ambu-Bag Oxygen Flow Rate Fraction of Inspired Oxygen Sepsis Recent Fever Within 48 Hours Sepsis New/Unexplained Change in Mental Status Sepsis Action Taken by Nursing Oxygen Flow Rate - Titration Pulse Oximetry Post Tiitration 04/10/20 18:47 04/10/20 18:50 04/10/20 18:52 Temperature Temperature Source Pulse Rate 127 H 129 H 116 H Respiratory Rate 21 26 H 20 Respiratory Effort / Characteristics Respiratory Depth Blood Pressure 153/106 H 134/84 Blood Pressure Mean 114 91 Pulse Oximetry 87 L 92 88 L Oxygen Delivery Method Ambu-Bag Mechanical Vent Oxygen Flow Rate 15 Fraction of Inspired Oxygen 100 Sepsis Recent Fever Within 48 Hours Sepsis New/Unexplained Change in Mental Status Sepsis Action Taken by Nursing Oxygen Flow Rate - Titration Pulse Oximetry Post Tiitration 04/10/20 18:55 Temperature Temperature Source Pulse Rate 99 H Respiratory Rate 20 Respiratory Effort / Characteristics Respiratory Depth Blood Pressure 101/66 Blood Pressure Mean 72 Pulse Oximetry 86 L Oxygen Delivery Method Mechanical Vent Oxygen Flow Rate Fraction of Inspired Oxygen 100 Sepsis Recent Fever Within 48 Hours Sepsis New/Unexplained Change in Mental Status Sepsis Action Taken by Nursing Oxygen Flow Rate - Titration Pulse Oximetry Post Tiitration Laboratory Data Result diagrams: 04/10/20 21:38 04/10/20 21:52 Lab Results 04/10/20 04/10/20 04/10/20 Range/Units 16:54 16:54 16:54 WBC 3.47 L (4.8-10.8) K/uL RBC 4.72 (4.2-5.4) M/uL Hgb 13.5 (12.0-16.0) g/dL Hct 41.2 (37-47) % MCV 87.3 (80-100) fL MCH 28.6 (25-34) pg MCHC 32.8 (32-36) g/dL RDW Std Deviation 41.1 (36.4-46.3) fL RDW Coeff of Julia 12.7 (11.5-14.5) % Plt Count 194 (130-400) K/uL MPV 9.0 (7.4-10.4) fL Immature Gran % (Auto) 0.3 % Neut % (Auto) 68.6 % Lymph % (Auto) 19.3 % [place] % (Auto) 10.1 % Eos % (Auto) 1.4 % Baso % (Auto) 0.3 % Neut # (Auto) 2.38 (1.4-6.5) K/uL Lymph # (Auto) 0.67 L (1.2-3.4) K/uL [place] # (Auto) 0.35 (0.11-0.59) K/uL Eos # (Auto) 0.05 (0-0.5) K/uL Baso # (Auto) 0.01 (0-0.2) K/uL Immature Gran # (Auto) 0.01 (0.00-0.02) K/uL PT 10.3 (9.0-12.0) Seconds INR 1.0 (0.9-1.1) APTT 27.1 (21.0-31.0) Seconds PTT Ratio 1.0 Sodium 137 (136-145) mmol/L Potassium 3.8 (3.5-5.1) mmol/L Chloride 103 (98-107) mmol/L Carbon Dioxide 28 (21-32) mmol/L Anion Gap 6.0 (3-11) BUN 14 (7-18) mg/dl Creatinine 0.75 (0.6-1.2) mg/dl Est Cr Clr Drug Dosing 68.1 ml/min Est GFR ( Amer) 100.4 Est GFR (Non-Af Amer) 86.6 BUN/Creatinine Ratio 18.6 (10-20) Glucose 105 H (70-99) mg/dl Calcium 8.9 (8.5-10.1) mg/dl Total Bilirubin 0.5 (0.2-1) mg/dl AST 27 (15-37) U/L ALT 34 (12-78) U/L Alkaline Phosphatase 90 (45-117) U/L Troponin I 0.027 (0-0.045) ng/ml Total Protein 8.1 (6.4-8.2) gm/dl Albumin 4.0 (3.4-5.0) gm/dl Globulin 4.1 H (2.5-4.0) gm/dl Albumin/Globulin Ratio 1.0 (0.9-2) COVID-19 Eval Order Influ A Molecular Assay (Negative) Influ B Molecular Assay (Negative) SARS-CoV-2, RNA, NAAT (NEGATIVE) 04/10/20 04/10/20 04/10/20 Range/Units 16:55 16:55 16:55 WBC (4.8-10.8) K/uL RBC (4.2-5.4) M/uL Hgb (12.0-16.0) g/dL Hct (37-47) % MCV (80-100) fL MCH (25-34) pg MCHC (32-36) g/dL RDW Std Deviation (36.4-46.3) fL RDW Coeff of Julia (11.5-14.5) % Plt Count (130-400) K/uL MPV (7.4-10.4) fL Immature Gran % (Auto) % Neut % (Auto) % Lymph % (Auto) % [place] % (Auto) % Eos % (Auto) % Baso % (Auto) % Neut # (Auto) (1.4-6.5) K/uL Lymph # (Auto) (1.2-3.4) K/uL [place] # (Auto) (0.11-0.59) K/uL Eos # (Auto) (0-0.5) K/uL Baso # (Auto) (0-0.2) K/uL Immature Gran # (Auto) (0.00-0.02) K/uL PT (9.0-12.0) Seconds INR (0.9-1.1) APTT (21.0-31.0) Seconds PTT Ratio Sodium (136-145) mmol/L Potassium (3.5-5.1) mmol/L Chloride (98-107) mmol/L Carbon Dioxide (21-32) mmol/L Anion Gap (3-11) BUN (7-18) mg/dl Creatinine (0.6-1.2) mg/dl Est Cr Clr Drug Dosing ml/min Est GFR ( Amer) Est GFR (Non-Af Amer) BUN/Creatinine Ratio (10-20) Glucose (70-99) mg/dl Calcium (8.5-10.1) mg/dl Total Bilirubin (0.2-1) mg/dl AST (15-37) U/L ALT (12-78) U/L Alkaline Phosphatase (45-117) U/L Troponin I (0-0.045) ng/ml Total Protein (6.4-8.2) gm/dl Albumin (3.4-5.0) gm/dl Globulin (2.5-4.0) gm/dl Albumin/Globulin Ratio (0.9-2) COVID[facility]19 [facility] Assay Negative (Negative) Influ B Molecular Assay Negative (Negative) SARS-CoV-2, RNA, NAAT POSITIVE A* (NEGATIVE) Administered Medications Fentanyl Citrate (Fentanyl Bolus From Bag) 50 mcg IV Q60M PRN PRN Reason: Pain or Agitation Stop: 04/24/20 19:41 Last Admin: 04/10/20 20:35 Dose: 50 mcg Documented by: [id number] Norepinephrine Bitartrate (Levophed/D5w) 8 mg in 508 mls @ 13.411 mls/hr IV .Q24H NANDINI; Protocol Stop: 05/10/20 19:14 Last Titration: 04/10/20 23:49 Dose: 0.08 mcg/kg/min, 21.5 mls/hr Documented by: [id number] Titration: 04/10/20 23:39 Dose: 0.12 mcg/kg/min, 32.2 mls/hr Documented by: [id number] Titration: 04/10/20 21:57 Dose: 0.16 mcg/kg/min, 42.9 mls/hr Documented by: [id number] Admin: 04/10/20 19:30 Dose: 0.05 mcg/kg/min, 13.4 mls/hr Documented by: [id number] Cosigned by: [id number] Midazolam HCl (Versed) 125 mg in 250 mls @ 8 mls/hr IV .[id number] [facility]; Protocol Stop: 05/10/20 19:44 Last Titration: 04/10/20 22:00 Dose: 4 mg/hr, 8 mls/hr Documented by: [id number] Cosigned by: [id number] Titration: 04/10/20 20:35 Dose: 2 mg/hr, 4 mls/hr Documented by: [id number] Cosigned by: [id number] Admin: 04/10/20 20:33 Dose: 1 mg/hr, 2 mls/hr Documented by: [id number] Cosigned by: [id number] Fentanyl Citrate (Fentanyl Drip) 1,250 mcg in 250 mls @ 15 mls/hr IV .[id number] [facility]; Protocol Stop: 04/24/20 19:44 Last Titration: 04/10/20 21:58 Dose: 75 mcg/hr, 15 mls/hr Documented by: [id number] Cosigned by: [id number] Admin: 04/10/20 20:33 Dose: 25 mcg/hr, 5 mls/hr Documented by: [id number] Cosigned by: [id number] Vasopressin 20 units/ Sodium (Chloride) 101 mls @ 12.12 mls/hr IV .Q8H20M [facility] Stop: 05/10/20 20:59 Last Admin: 04/10/20 22:04 Dose: 0.04 unit/min, 12.1 mls/hr Documented by: [id number] Cosigned by: [id number] Cisatracurium Besylate 40 mg/ (Sodium Chloride) 100 mls @ 13.5 mls/hr IV .Q7H25M [facility]; Protocol Stop: 05/10/20 20:59 Last Titration: 04/10/20 23:51 Dose: 2 mcg/kg/min, 13.5 mls/hr Documented by: [id number] Admin: 04/10/20 22:03 Dose: 1 mcg/kg/min, 6.8 mls/hr Documented by: [id number] Cosigned by: [id number] Vancomycin HCl 1,500 mg/ (Sodium Chloride) 530 mls @ 200 mls/hr IV ONE ONE Stop: 04/11/20 01:38 Last Admin: 04/10/20 23:44 Dose: 200 mls/hr Documented by: [id number] Discontinued Medications Dexamethasone (Dexamethasone Sod Inj 10 Mg/Ml Vial) 6 mg IV NOW ONE Stop: 04/10/20 17:47 Last Admin: 04/10/20 19:00 Dose: 6 mg Documented by: [id number] Fentanyl Citrate (Fentanyl Citrate 100 Mcg/2 Ml Vial) Confirm Administered Dose 100 mcg .ROUTE .STK-MED ONE Stop: 04/10/20 18:50 Last Admin: 04/10/20 22:48 Dose: Not Given Documented by: [id number] Fentanyl Citrate (Fentanyl Citrate 100 Mcg/2 Ml Vial) Confirm Administered Dose 100 mcg .ROUTE .STK-MED ONE Stop: 04/10/20 19:08 Last Admin: 04/10/20 19:12 Dose: 100 mcg Documented by: [id number] Furosemide (Furosemide 40 Mg/4 Ml Vial) Confirm Administered Dose 40 mg IV .STK- MED ONE Stop: 04/10/20 18:59 Last Admin: 04/10/20 19:12 Dose: 40 mg Documented by: [id number] Heparin Sodium (Porcine) (Heparin Sod (Porcine) 1000 Unit/Ml 10 Ml Vial) Confirm Administered Dose 10,000 units .ROUTE .STK-MED ONE Stop: 04/10/20 19:07 Last Admin: 04/10/20 19:13 Dose: 4,000 units Documented by: [id number] Cosigned by: [id number] Sodium Chloride (Nss) 500 mls @ 999 mls/hr IV .Q31M [facility] Stop: 04/10/20 17:15 Last Infusion: 04/10/20 18:03 Dose: 0 mls/hr Documented by: [id number] Admin: 04/10/20 17:12 Dose: 999 mls/hr Documented by: [id number] Sodium Chloride (Nss 1000ml) 1,000 mls @ 999 mls/hr IV .Q1H1M ONE Stop: 04/10/20 20:06 Last Infusion: 04/10/20 23:46 Dose: 0 mls/hr Documented by: [id number] Admin: 04/10/20 19:52 Dose: 999 mls/hr Documented by: [id number] Alteplase, Recombinant 100 mg/ (EMPTY BAG) 100 mls @ 50 mls/hr IV NOW STA; Protocol Stop: 04/10/20 21:15 Last Infusion: 04/10/20 23:46 Dose: 0 mls/hr Documented by: [id number] Cosigned by: [id number] Admin: 04/10/20 19:26 Dose: 50 mls/hr Documented by: [id number] Cosigned by: [id number] Remdesivir 200 mg/ Sodium (Chloride) 250 mls @ 125 mls/hr IV NOW ONE; Protocol Stop: 04/10/20 22:59 Last Infusion: 04/10/20 23:46 Dose: 0 mls/hr Documented by: [id number] Admin: 04/10/20 21:57 Dose: 125 mls/hr Documented by: [id number] Piperacillin Sod/Tazobactam (Sod 3.375 gm/ Dextrose) 115 mls @ 230 mls/hr IV ONE ONE; Protocol Stop: 04/10/20 23:29 Last Admin: 04/10/20 23:44 Dose: 230 mls/hr Documented by: [id number] Midazolam HCl (Midazolam Hcl 1 Mg/Ml 2ml Vial) Confirm Administered Dose 2 mg .ROUTE .STK-MED ONE Stop: 04/10/20 19:17 Last Admin: 04/10/20 19:18 Dose: 2 mg Documented by: [id number] Miscellaneous (Rapid Sequence Induction Bag) Confirm Administered Dose 1 ea .ROUTE .STK-MED ONE Stop: 04/10/20 18:33 Last Admin: 04/10/20 22:48 Dose: Not Given Documented by: [id number] Miscellaneous (Rapid Sequence Induction Bag) Confirm Administered Dose 1 ea .ROUTE .STK-MED ONE Stop: 04/10/20 19:39 Last Admin: 04/10/20 22:50 Dose: Not Given Documented by: [id number] Propofol (Propofol Iv Emulsion 10 Mg/Ml 100 Ml Vial) Confirm Administered Dose 1,000 mg IV .STK-MED ONE Stop: 04/10/20 18:51 Last Admin: 04/10/20 19:12 Dose: 1,000 mg Documented by: [id number] Cosigned by: [id number] Rocuronium Marion (Rocuronium Marion 10 Mg/Ml 5 Ml Vial) 50 mg IV ONCE ONE Stop: 04/10/20 21:03 Last Admin: 04/10/20 21:59 Dose: Not Given Documented by: [id number] Rocuronium Marion (Rocuronium Marion 10 Mg/Ml 5 Ml Vial) Confirm Administered Dose 50 mg IV .STK-MED ONE Stop: 04/10/20 21:04 Last Admin: 04/10/20 21:13 Dose: 50 mg Documented by: [id number] Cosigned by: [id number] Sodium Chloride (Sodium Chloride 0.9% 50 Ml Bag) 50 ml IV TODAY@2100 ONE Stop: 04/10/20 21:01 Last Admin: 04/10/20 21:11 Dose: 50 ml Documented by: [id number] Sodium Chloride (Sodium Chloride 0.9% 10ml Flush) 30 ml IV Q24H NANDINI Stop: 04/10/20 21:01 Last Admin: 04/10/20 23:45 Dose: 30 ml Documented by: [id number] Discharge Plan Visit Data Chief Complaint: Shortness of Breath/Dyspnea Stated Complaint: SOB, COUGH ED Provider: Nino Flowers ED Midlevel Provider: Azucena Otoole Discharge Problem: Acute respiratory failure with hypoxia, Pneumonia due to COVID-19 virus, Admitted to intensive care unit Patient Disposition: Admitted As Inpatient Condition: Critical Discharge Instructions Interventions: ED Discharge Assessment Last Done: 04/10/20 19:56
[2020-04-10] MEDS ORDERED: SODIUM CHLORIDE 0.9% 500 ML IV SCH (16:45)
[2020-04-10 17:19] LABS: Basophils # (auto) 0.01 K/uL (0-0.2); Basophils % (auto) 0.3 %; Eosinophils # (auto) 0.05 K/uL (0-0.5); Eosinophils % (auto) 1.4 %; Hematocrit (blood only) 41.2 % (37-47); Hemoglobin 13.5 g/dL (12.0-16.0); Immature Granulocytes # (auto) 0.01 K/uL (0.00-0.02); Immature Granulocytes % (auto) 0.3 %; Lymphocytes # (auto) 0.67 K/uL (1.2-3.4); Lymphocytes % (auto) 19.3 %; Mean Corpuscular Hemoglobin 28.6 pg (25-34); Mean Corpuscular Hgb Conc 32.8 g/dL (32-36); Mean Corpuscular Volume 87.3 fL (80-100); Monocytes # (auto) 0.35 K/uL (0.11-0.59); Monocytes % (auto) 10.1 %; Neutrophils # (auto) 2.38 K/uL (1.4-6.5); Neutrophils % (auto) 68.6 %; Platelet Count 194 K/uL (130-400); RDW Coefficient of Variation 12.7 % (11.5-14.5); RDW Standard Deviation 41.1 fL (36.4-46.3); Red Blood Count 4.72 M/uL (4.2-5.4); White Blood Count 3.47 K/uL (4.8-10.8)
[2020-04-10 17:30] LABS: Partial Thromboplastin Time 27.1 Seconds (21.0-31.0); Prothrombin Time 10.3 Seconds (9.0-12.0)
[2020-04-10 17:34] LABS: BUN Creatinine Ratio 18.6 (10-20); Calcium 8.9 mg/dl (8.5-10.1); Creatinine Clr Calc Pharmacy 68.1 ml/min; Est GFR (African American) 100.4; Est GFR (Non-African American) 86.6; Potassium 3.8 mmol/L (3.5-5.1)
[2020-04-10 17:39] LABS: Bilirubin,Total 0.5 mg/dl (0.2-1); Globulin 4.1 gm/dl (2.5-4.0); Total Protein 8.1 gm/dl (6.4-8.2); Troponin I 0.027 ng/ml (0-0.045)
[2020-04-10] MEDS ORDERED: DEXAMETHASONE SOD INJ 10 MG/ML VIAL IV ONE (17:46)
--- NOTE | 2020-04-10 17:56 | XRay Report ---
XR chest 1V portable CLINICAL HISTORY: Shortness of breath COMPARISON STUDY: 10/22/2019 FINDINGS: The heart is borderline enlarged. There are diffuse bilateral groundglass pulmonary opaciti es. Diagnostic considerations include pulmonary edema, multifocal pneumonia, or rare entities such as acute interstitial lung disease, or alveolar proteinosis.[ IMPRESSION: 1. Diffuse bilateral groundglass pulmonary opacities. Likely diagnostic considerations include pulmon chidi edema versus a multifocal pneumonia. Clinical and radiographic follow-up is recommended ACT 112: Negative or not required by law. Electronically signed by: Michael Thomas M.D. 04/10/2020 5:54 PM
[2020-04-10 18:14] LABS: Influenza A virus by PCR Negative (Negative); Influenza B virus by PCR Negative (Negative)
[2020-04-10] MEDS ORDERED: RAPID SEQUENCE INDUCTION BAG ONE ×2 (18:32→19:38)
[2020-04-10] MEDS ORDERED: fentaNYL citrate 100 MCG/2 ML VIAL ONE ×2 (18:49→19:07)
[2020-04-10] MEDS ORDERED: PROPOFOL IV EMULSION 10 MG/ML 100 ML VIAL IV ONE (18:50)
[2020-04-10] MEDS ORDERED: FUROSEMIDE 40 MG/4 ML VIAL IV ONE (18:58)
[2020-04-10] MEDS ORDERED: ICU PROTOCOL FOR HYPERGLYCEMIA PRN (19:00)
[2020-04-10] MEDS ORDERED: HEPARIN SODIUM/DEXTROSE 25,000 UNITS/500 ML BAG IV SCH (19:00)
[2020-04-10] MEDS ORDERED: SODIUM CHLORIDE 0.9% 1000ML 1,000 ML IV ONE (19:06)
[2020-04-10] MEDS ORDERED: HEPARIN 25000 UNIT/500 ML D5W IV ONE (19:06)
[2020-04-10] MEDS ORDERED: HEPARIN SOD (PORCINE) 1000 UNIT/ML 10 ML VIAL ONE (19:06)
[2020-04-10] MEDS ORDERED: STAT IV Infusion **Titration per Protocol STA ×3 (19:07→20:55)
[2020-04-10] MEDS ORDERED: ALTEPLASE, RECOMBINANT 100 MG in EMPTY BAG 0 ML IV STA (19:16)
[2020-04-10] MEDS ORDERED: DC ALL ANTICOAGULANTS STA (19:16)
[2020-04-10] MEDS ORDERED: PRIMARY PLUMSET, PE LINED TUBING, 113 IN, NON-DEHP (2260-0500) IV STA (19:16)
[2020-04-10] MEDS ORDERED: MIDAZOLAM HCL 1 MG/ML 2ML VIAL ONE (19:16)
[2020-04-10] MEDS ORDERED: Heparin IV Low Dose *NO* Bolus IV SCH (19:30)
[2020-04-10] MEDS: NOREPINEPHRINE/D5W 8 MG/508 ML BAG IV SCH (19:30)
[2020-04-10] MEDS ORDERED: MIDAZOLAM BOLUS FROM BAG IV PRN (19:42)
--- NOTE | 2020-04-10 19:45 | Procedure Note ---
Procedure Note Date of Service April 10, 2020 Note ARTERIAL LINE PROCEDURE NOTE: Procedure: Arterial Line Placement Attending: Dr. Rai Damon Provider: FÉLIX Grimaldo Indication: Monitoring on Pressors Anesthesia: None Line placed emergently for cardiogenic shock with hypotension requiring vasopressors A time-out was completed verifying correct patient, procedure, site, positioning, and implant(s) or special equipment if applicable. Allens test was performed to ensure adequate perfusion. Patients left wrist was prepped and draped in the usual sterile fashion. Ultrasound guidance was used to aid needle placement. A 20g Arrow arterial line was introduced into the left radial next for artery. Catheter was threaded, and the needle was removed with appropriate blood return. Good waveform was observed. The patient tolerated the procedure well. Confirmation ablation of the ultrasound Blood Loss: Minimal Complications: None Procedural Ultrasound Guidance: Procedure Date: 04/10/2020 Indication: Arterial line insertion Attending: Dr. Rai Chacko Provider: FÉLIX Grimaldo Artery Identified: YES Line confirmed in Artery with ultrasound: Yes Complications: NONE Patient tolerated procedure: WELL Coding
[2020-04-10] MEDS ORDERED: DEXAMETHASONE SOD INJ 4 MG/ML VIAL IV STA (19:49)
--- NOTE | 2020-04-10 19:54 | History & Physical Report ---
Date of Service April 10, 2020 Assessment & Plan (1) Acute respiratory failure with hypoxia: Secondary to ARDS, suspected PE, COVID-19 pneumonia, possible bacterial pneumonia. (2) Pneumonia due to COVID-19 virus: Dexamethasone 6mg IV daily. Convalescent plasma ordered. Remdesivir 5 day IV course. (3) Pulmonary embolism associated with COVID-19: Suspected based on sudden onset shock in the ER with acute respiratory failure in the setting of chest pain. Unstable to go through CT for PE. Improved hemodynamics and hypoxia after tPA given. Will start back on IV heparin drip per protocol PTT. (4) ARDS (adult respiratory distress syndrome): ICU management on ventilator. Difficult to rule out bacterial pneumonia with positive procalcitonin. Antibiotics per ICU with Zosyn and Vancomycin. Follow up blood cultures (5) Cardiogenic shock: In setting of suspected PE. Improved with IV fluid resuscitation, tPA and started on Levophed in ER. (6) Hypothyroidism: Continue levothyroxine once she is able to eat and drink. (7) Hyperlipidemia: Restart atorvastatin when able. (8) Depression: Restart sertraline when able to avoid withdrawal Admission and Anticipated Discharge Date Admission Date: Apr 10, 2020 History of Present Illness Chief Complaint: Shortness of breath Primary Care Provider: Kg Napiermahendra Mackay is a 59 year old female who presents to the ER with worsening shortness of breath over the past 3 days. Unable to get any history from patient when seen as she was sedated and mechanically ventilated. Discussed history with her over the phone who confirms she has been unwell for the last 3 days with increasing shortness of breath. 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 She also reported cleaning a room which was not thought to be COVID-19 positive but the patient later tested positive. He reports giving her his albuterol inhaler last night and she had a small improvement but was much more short of breath today therefore advised to come to the ER. He denies she was having any fever or chills. In the ER she initially had O2 sats of 96% on 4L (does not use oxygen at home). During her ER course she reportedly had some chest pain and became acutely more short of breath and became pale and diaphoretic. O2 sats decreased and she was placed briefly on BiPAP but continued to desaturate. She quickly continued to get worse on BiPAP and was subsequently intubated. Despite this her O2 sats were 82% with a PEEP 18 and 100% FiO2 with good air entry bilaterally. This was her status on myself entering the room. Initially BP was 130s and she was given 40mg IV lasix by the ER provider due to concern of flash pulmonary edema with IV fluids given previously in setting of COVID-19. Given rapid deterioration in setting of chest pain diagnosis of mucus plugging vs PE entertained. Most likely PE since O2 sats continued to remain low despite intubation with good air entry. IV heparin bolus ordered and given. Her BP subsequently decreased sBP 70s. 1L IV NSS bolus given and decision to give tPA was taken by myself, ER physician and ICU SOLAR FABRICATION TECHNICIAN. Subsequent central line placed by ER physician and patient was started on Levophed for cardiogenic shock. The patient was handed over to the ICU SOLAR FABRICATION TECHNICIAN and will be transfered to the ICU for ongoing care. Hemodynamics and O2 sats subsequently improved after tPA given. Allergies Allergy/AdvReac Type Severity Reaction Status Date / Time No Known Allergies Allergy Unknown Verified 04/10/20 17:24 Home Medications Medication Instructions Recorded Confirmed Type ascorbic acid (vitamin C) [Vitamin 500 mg PO QAM #0 01/17/17 04/10/20 History C] cholecalciferol (vitamin D3) 1 tab PO QAM 90 Days #90 tab 01/17/17 04/10/20 Hi story [Vitamin D3] cyanocobalamin (vitamin B-12) 1,000 mcg PO QAM #0 01/17/17 04/10/20 History [Vitamin B-12] levothyroxine 75 mcg PO QAM 90 Days #90 tab 01/17/17 04/10/20 History atorvastatin 40 mg PO QAM 04/10/20 04/10/20 History ibuprofen 400 mg PO Q6H PRN 04/10/20 04/10/20 History sertraline 100 mg PO QAM 04/10/20 04/10/20 History Past Med/Surg History Medical History Anxiety Depression Hypothyroidism Social History Smoking Status: Former smoker Hx Alcohol Use: Yes Alcohol type: beer, wine and hard liquor Hx Substance Use: No Preferred Language: Latvian Communication Ability: Unable Media Operator Required: No Beliefs That Will Affect Care: None Current Living Situation: Spouse Other Information That Helps Us Care for You: No Feels Safe at Home: Declines to Answer Assistive Devices: None Review of Systems Review of Systems: Unobtainable due to endotracheal tube and Unobtainable due to reduced consciousness Physical Exam Constitutional: well developed, well nourished and + acute distress (Respiratory) Eyes: PERRL, conjunctivae normal, anicteric sclerae Respiratory: + labored breathing, + retractions, + uses accessory muscles and symmetric chest movement Auscultation: + rhonchi (bilaterally, but with good air entry); no wheezes Intubated Cardiovascular: Rate/Rhythm: regular rhythm and + tachycardic Heart Sounds: no murmur Extremities: + abnormal capillary refill ( prolonged peripheried, no central cyanosis) and no pedal edema (calf size equal) Gastrointestinal (Abdomen): normal bowel sounds, soft, nontender, no hepatosplenomegaly Skin: no rashes, warm and dry Neurologic: + not awake Results & Data Results & Data ([facility]) Vital Signs (Past 12 Hours) Vital Signs Temp Pulse Resp BP Pulse Ox 04/10/20 19:41 100 H 28 H 90/59 L 84 L 04/10/20 19:40 105 H 18 84 L 04/10/20 19:35 102 H 25 H 85 L 04/10/20 19:32 105 H 24 83 L 04/10/20 19:30 102 H 23 85 L 04/10/20 19:25 99 H 22 82 L 04/10/20 19:23 102 H 22 89/50 L 84 L 04/10/20 19:20 100 H 19 83 L 04/10/20 19:15 92 H 18 81 L 04/10/20 19:11 91 H 17 84 L 04/10/20 19:10 99 H 21 85 L 04/10/20 19:06 103 H 27 H 77 L 04/10/20 19:04 97 H 21 75/52 L 04/10/20 18:55 99 H 20 101/66 86 L 04/10/20 18:52 116 H 20 134/84 88 L 04/10/20 18:50 129 H 26 H 153/106 H 92 04/10/20 18:47 127 H 21 87 L 04/10/20 18:45 126 H 27 H 150/97 H 81 L 04/10/20 18:44 130 H 30 H 144/103 H 76 L 04/10/20 18:40 128 H 27 H 149/97 H 83 L 04/10/20 18:36 135 H 39 H 150/90 H 92 04/10/20 18:30 137 H 36 H 142/116 H 93 04/10/20 16:32 94 04/10/20 16:22 92 04/10/20 14:24 36.4 C L 100 H 18 162/91 H 92 04/10/20 14:22 94 Diagnostic Findings XR chest 1V portable IMPRESSION: 1. Diffuse bilateral groundglass pulmonary opacities. Likely diagnostic considerations include pulmonary edema versus a multifocal pneumonia. Clinical and radiographic follow-up is recommended. ECG Indication: SOB/dyspnea Rate (beats per minute): 109 Rhythm: sinus tachycardia Findings: + T-wave inversion (septal) Comparison ECG Date: from (October 22, 2019) Change: the following changes noted (Bordeline criteria for inferior infarct no longer present) Code Status & VTE Plan Code Status Full VTE Prophylaxis Plan VTE Prophylaxis will be ordered: Yes Critical Care Time Critical Care Time: Yes Total Critical Care Time: 35 PG Care Time/CCT Total # of Minutes Spent Total Time Spent with Patient: Total time spent is greater than 50% in coordination of care (as documented) at patient's floor/unit and/or counseling patient: Critical Care Time: Yes Total Critical Care Time: 35 Coding Level of Care Code 96759 Initial Inpt Care Lvl 3 Diagnoses Acute respiratory failure with hypoxia J96.01 Pneumonia due to COVID-19 virus U07.1; J12.82 Pulmonary embolism associated with COVID-19 U07.1; I26.99 ARDS (adult respiratory distress syndrome) J80 Cardiogenic shock R57.0 Hypothyroidism E03.9 Hyperlipidemia E78.5 Depression F32.9 Additional Codes Critical Care Time - Critical Care Time: Yes ([id number])
[2020-04-10 20:27] LABS: D Dimer 3630 ug/L FEU (0-500)
[2020-04-10] MEDS: MIDAZOLAM HCL 125 MG/250 ML BAG IV SCH (20:33)
[2020-04-10] MEDS: fentaNYL DRIP 1,250 MCG/250 ML BAG IV SCH (20:33)
[2020-04-10 20:47] LABS: C Reactive Protein 2.08 mg/dl (0-0.29); Ferritin 370.2 ng/ml (8-388); Thyroid Stimulating Hormone 4.51 uIu/ml (0.300-4.500)
[2020-04-10 21:00] LABS: T4 Free Thyroxine 0.96 ng/dl (0.8-1.6)
[2020-04-10] MEDS ORDERED: SODIUM CHLORIDE 0.9% 50 ML BAG IV ONE (21:00)
[2020-04-10] MEDS ORDERED: SODIUM CHLORIDE 0.9% 10ML FLUSH IV SCH (21:00)
[2020-04-10] MEDS ORDERED: REMDESIVIR 200 MG in SODIUM CHLORIDE 0.9% 210 ML IV ONE (21:00)
[2020-04-10] MEDS ORDERED: VASOPRESSIN 20 UNITS in 0.9 % SODIUM CHLORIDE 100 ML IV SCH (21:00)
[2020-04-10] MEDS ORDERED: ROCURONIUM BROMIDE 10 MG/ML 5 ML VIAL IV ONE ×3 (21:02→21:54)
--- NOTE | 2020-04-10 21:15 | Critical Care Consultation ---
Date of Consultation April 10, 2020 Assessment & Plan (1) Admitted to intensive care unit: Reason Critically Ill: 59-year-old female with positive COVID-19, and suspected pulmonary embolism requiring intubation, thrombolysis therapy, vasopressors and paralyzed and proned Neuro - Sedation: Versed and fentanyl Paralytics: Nimbex, titrate up his monitor per protocol Cardiac - Cardiogenic shockmost likely from massive PE as patient acutely decompensated in the ED -EKG without ST elevations, initial troponin unremarkable -Currently maintaining MAP greater than 65 on Levophed, central line and arterial line inserted in ED -Cannot rule out septic component at this time will start on broad-spectrum antibiotics, see ID below -Received TPA in ED, heparin drip to follow -Follow-up echo in a.m. Respiratory - Acute hypoxic respiratory failurepatient with COVID-19 pneumonia and diffuse bilateral opacities on chest x-ray. Also suspect pulmonary embolism given patient's rapid decompensation along with cardiogenic shock. -Intubated in the emergency department requiring high ventilator settings but continued to have oxygen saturation in the 80s. Was paralyzed and proned at 2130 once transferred to the ICU and showed immediate improvement in oxygen sat uration and currently weaning ventilator settings. We will continue to trend ABGs. -Received emergent TPA administration in the ED for presumed PE. Plan to start heparin drip once patient's PTT within goal range. -Started on remdesivir and dexamethasone as patient only within 3 days of symptoms -Started on empiric broad-spectrum antibiotics, see ID below -Continuous monitoring on pulse ox -Plan to attempt to obtain CT chest once patient is more hemodynamically stable GI - OG to low intermittent suction, n.p.o. IV famotidine RENAL/LYTES - Creatinine within normal limits, monitor with routine CBCs and replete electrolytes as indicated - Foleystrict I's and O ENDO - No history of diabetes, ICU hyperglycemic protocol Hypothyroidismcontinue Synthroid HEME - H&H stable, monitor closely for signs of bleeding following thrombolytics and monitor routine CBCs ID - COVID-19 PCR positive, influenza a and B negative Procalcitonin elevated but lactate within normal limits and currently afebrile Blood cultures pending, plan to continue empiric antibiotics with vancomycin and Zosyn for now MRSA swab pending, will likely DC Vanco if negative LINES/IV ACCESS - CVC, A-line, Krishnan, OG tube, ET tube DVT PROPHYLAXIS - SCDs, heparin drip CODE STATUSper discussion with patient's , patient is to remain full code at this time. I have personally spent 85 minutes of critical care time in the direct management of this patient. This is a life/limb threatening event. This includes time spent evaluating patient, direct bedside care, chart review, placing orders, interpretation of diagnostic studies, discussion with consultants, patient, and family members, as well as other required patient management activities. This time is exclusive of all separately billable procedures, and teaching time and separate from and in addition to any other critical care service time. Thank you for allowing us to participate in the care of this patient. Please refer to my attending physician's documentation for any further recommendations. (2) Acute respiratory failure with hypoxia: (3) Cardiogenic shock: (4) Pulmonary embolism associated with COVID-19: (5) Pneumonia due to COVID-19 virus: (6) Hypothyroidism: (7) Hyperlipidemia: (8) Anxiety: (9) Depression: (10) ARDS (adult respiratory distress syndrome): Supervising Physician Co-Signing Physician Notes I participated in the pronation maneuvers x2 on 04/11/2020. Patient has improved in her oxygenation but she is not going to be rapidly extubated will. Since she had significant improvement in the prone position we have returned her to that. Continue routine Covid acute respiratory failure care. I have personally spent 40 minutes of critical care time in the direct management of this patient. This is a life/limb threatening event. This includes time spent evaluating patient, direct bedside care, chart review, placing orders, interpretation of diagnostic studies, discussion with consultants, patient, and/or family members regarding treatment decisions, as well as other required patient management activities. This time is exclusive of all separately billable procedures, and teaching time and separate from and in addition to any other critical care service time. 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 Patient stated that she had felt like she had a cold and a mild cough for the past 3 days and started feeling short of breath today. Chest x-ray showed diffuse bilateral groundglass opacities, and rapid COVID-19 test performed was positive. Patient was reportedly doing well at first and speaking in complete sentences however she became more short of breath and was requiring nasal cannula. The patient then began to experience chest pain and was diaphoretic, became tachycardic with heart rate in the 140s, and oxygen saturation dropped to the 70s which she was placed on nonrebreather. Patient continued to decompensate and required intubation. EKG was repeated. Patient also became hypotensive at this time and was requiring vasopressors. I was contacted by the ER physician regarding the patient's decompensation and contacted Dr. Damon (cherry sorter) to discuss the case. Massive PE was suspected and decision was made to proceed with TPA administration as patient was now requiring 100% FiO2, and PEEP of 18 with oxygen saturation in the 80s and significantly hypotensive. Unfortunately, she was considered too unstable for CT scan and plan to obtain CT imaging if she becomes somewhat more stable. She has been transferred to the ICU where she was proned and showed immediate improvement in oxygenation, weaning ventilator as tolerated. I did speak with the patient's regarding her acuity and CODE STATUS. He was made aware that the patient's prognosis is extremely guarded at this time. He would like the patient to remain a full code at this time as well. Allergies Allergy/AdvReac Type Severity Reaction Status Date / Time No Known Allergies Allergy Unknown Verified 04/10/20 17:24 Home Medications Medication Instructions Recorded Confirmed Type ascorbic acid (vitamin C) [Vitamin 500 mg PO QAM #0 01/17/17 04/10/20 History C] cholecalciferol (vitamin D3) 1 tab PO QAM 90 Days #90 tab 01/17/17 04/10/20 History [Vitamin D3] cyanocobalamin (vitamin B-12) 1,000 mcg PO QAM #0 01/17/17 04/10/20 History [Vitamin B-12] levothyroxine 75 mcg PO QAM 90 Days #90 tab 01/17/17 04/10/20 History atorvastatin 40 mg PO QAM 04/10/20 04/10/20 History ibuprofen 400 mg PO Q6H PRN 04/10/20 04/10/20 History sertraline 100 mg PO QAM 04/10/20 04/10/20 History Patient History Medical History Anxiety Depression Hypothyroidism Social History Smoking Status: Former smoker Hx Alcohol Use: Yes Alcohol type: beer, wine and hard liquor Hx Substance Use: No Preferred Language: Khmer Communication Ability: Effective Load Dispatcher Required: No Beliefs That Will Affect Care: None Current Living Situation: Spouse Other Information That Helps Us Care for You: No Feels Safe at Home: Declines to Answer Assistive Devices: Oxygen - Continuous Review of Systems Review of Systems: Unobtainable due to cognitive status and Unobtainable due to endotracheal tube Physical Exam Constitutional: + mechanically ventilated Sedated Eyes: PERRL, conjunctivae normal, anicteric sclerae ENMT: external ear and nose normal, oropharynx normal Neck: trachea midline, no thyromegaly Respiratory: rhonchi auscultated in all lobes bilaterally, symmetrical chest wall movement, mechanically ventilated. No wheezes, no crackles. Cardiovascular: Rate/Rhythm: regular rate and regular rhythm Heart Sounds: normal S1 and normal S2 Vessels: no JVD Extremities: no edema Gastrointestinal (Abdomen): Abdomen obese, soft, bowel sounds normal. Skin: no rashes, warm and dry Neurologic: Unable to assess due to sedation Psychiatric: Unable to assess due to sedation Genitourinary: Indwelling Krishnan cath Results & Data Results & Data ([facility]) Vital Signs (Past 12 Hours) Vital Signs Temp Pulse Resp BP Pulse Ox 04/10/20 19:55 115 H 20 114/82 95 04/10/20 19:50 110 H 20 94 04/10/20 19:45 102 H 20 90/59 L 94 04/10/20 19:41 100 H 28 H 90/59 L 84 L 04/10/20 19:40 105 H 18 84 L 04/10/20 19:35 102 H 25 H 85 L 04/10/20 19:32 105 H 24 83 L 04/10/20 19:30 102 H 23 85 L 04/10/20 19:25 99 H 22 82 L 04/10/20 19:23 102 H 22 89/50 L 84 L 04/10/20 19:20 100 H 19 83 L 04/10/20 19:15 92 H 18 81 L 04/10/20 19:11 91 H 17 84 L 04/10/20 19:10 99 H 21 85 L 04/10/20 19:06 103 H 27 H 77 L 04/10/20 19:04 97 H 21 75/52 L 04/10/20 18:55 99 H 20 101/66 86 L 04/10/20 18:52 116 H 20 134/84 88 L 04/10/20 18:50 129 H 26 H 153/106 H 92 04/10/20 18:47 127 H 21 87 L 04/10/20 18:45 126 H 27 H 150/97 H 81 L 04/10/20 18:44 130 H 30 H 144/103 H 76 L 04/10/20 18:40 128 H 27 H 149/97 H 83 L 04/10/20 18:36 135 H 39 H 150/90 H 92 04/10/20 18:30 137 H 36 H 142/116 H 93 04/10/20 16:32 94 04/10/20 16:22 92 04/10/20 14:24 36.4 C L 100 H 18 162/91 H 92 04/10/20 14:22 94 Coding Level of Care Code Critical Care ea addt'l 30 min Diagnoses Admitted to intensive care unit Z78.9 Acute respiratory failure with hypoxia J96.01 Cardiogenic shock R57.0 Pulmonary embolism associated with COVID-19 U07.1; I26.99 Pneumonia due to COVID-19 virus U07.1; J12.82 Hypothyroidism E03.9 Hyperlipidemia E78.5 Anxiety F41.9 Depression F32.9 ARDS (adult respiratory distress syndrome) J80
[2020-04-10] MEDS ORDERED: ETOMIDATE 2 MG/ML 20 ML VIAL IV ONE (21:54)
[2020-04-10] MEDS ORDERED: KETAMINE HCL INJ 50 MG/ML 10 ML VIAL IV ONE (21:54)
[2020-04-10] MEDS ORDERED: SUCCINYLCHOLINE CHLORIDE 20 MG/ML 10 ML VIAL IV ONE (21:54)
[2020-04-10] MEDS: CISATRACURIUM BESYLATE 40 MG in 0.9 % SODIUM CHLORIDE 80 ML IV SCH (22:03)
[2020-04-10 22:15] LABS: Hemoglobin 13.6 g/dL (12.0-16.0); Mean Corpuscular Hgb Conc 33.2 g/dL (32-36); Mean Corpuscular Volume 87.4 fL (80-100); Mean Platelet Volume 9.4 fL (7.4-10.4); Platelet Count 333 K/uL (130-400); RDW Coefficient of Variation 13.1 % (11.5-14.5); Red Blood Count 4.69 M/uL (4.2-5.4); White Blood Count 7.64 K/uL (4.8-10.8)
[2020-04-10 22:19] LABS: Basophils # (auto) 0.01 K/uL (0-0.2); Basophils % (auto) 0.1 %; Eosinophils # (auto) 0.01 K/uL (0-0.5); Eosinophils % (auto) 0.1 %; Immature Granulocytes # (auto) 0.03 K/uL (0.00-0.02); Immature Granulocytes % (auto) 0.4 %; Lymphocytes # (auto) 0.52 K/uL (1.2-3.4); Lymphocytes % (auto) 6.8 %; Monocytes # (auto) 0.43 K/uL (0.11-0.59); Monocytes % (auto) 5.6 %; Neutrophils # (auto) 6.64 K/uL (1.4-6.5)
[2020-04-10 22:51] LABS: BUN Creatinine Ratio 21.1 (10-20); Calcium 7.1 mg/dl (8.5-10.1); Creatinine Clr Calc Pharmacy 58.6 ml/min; Est GFR (African American) 83.9; Est GFR (Non-African American) 72.4; Troponin I 0.055 ng/ml (0-0.045)
[2020-04-10] MEDS ORDERED: VANCOMYCIN CONSULT ACTIVE PRN ×2 (22:56)
[2020-04-10] MEDS ORDERED: PIPERACILL/TAZOBAC CONSULT ACTIVE PRN (22:56)
--- NOTE | 2020-04-10 22:56 | Emergency Department Note ---
ED Visit Note Provider: Nino Flowers MD DATE OF SERVICE:04/10/2020 Patient initially seen by nurse practitioner Azucena Otoole & see her note for primary details. In short, the patient evidently has been short of breath and a cough the past several days. 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 Came in for evaluation of this with concerns for Covid. Was alerted by nurse practitioner and nursing staff the patient was having declining respiratory status during brief stay here thus far. Came to evaluate the patient as chest x-ray is being performed. Patient is significantly tachypneic and tachycardic with increased work of breathing satting in the 60s on a nonrebreather. Staff and MARKETING BUSINESS ANALYST state this is a significant change as initially she was 92% on room air when she arrived. Patient states she is having sudden onset of chest pain and appears pale and diaphoretic. Denies a cardiac history. Respiratory was immediately called and notified for BiPAP. Repeat EKG was obtained (per my interpretation shows a sinus tachycardia 126 bpm with some respiratory variation. No acute ST segment elevation is clearly noted although lateral T wave inversions are noted that appear new. Significant baseline artifact and more tachycardic with T wave inversions compared to previous from earlier today.) And did not show evidence of acute ST segment ME. Patient initially began to have some stabilization with BiPAP and pulse oximetry increased on a percent BiPAP to around 90% and she was less tachypneic appears more comfortable. Review of laboratory studies show some slight leukopenia consistent likely with Covid and Covid test come back positive. Troponin detectable not abnormal initially. No significant evidence of renal dysfunction or severe electrolyte abnormality noted. Patient without noted significant leg swelling. Nurse practitioner discussed with the hospitalist for admission. During this time was alerted to return to the room by staff due to worsening clinical status on BiPAP after 5 to 10 minutes. Patient was significantly tachypneic and clearly failing maximal support with BiPAP. Discussed with her likely need for intubation at this time. Discussed the risks with the patient with the need for additional respiratory support. She was in agreement with plan for intubation. Respiratory was present as well as nursing staff and appropriate arrangements were made. Ventilator was in the room was low suction. Patient maintained on high present FiO2 with BiPAP. [place] scope was utilized. Patient was intubated as below. Starting 90% there is some transit desaturation to the 70s that quickly improved with bagging. Some difficulty initially with ventilator function on the second ventilator was obtained. Frothy secretions were noted from the ET tube. Given some Lasix as she received some IV fluids earlier and question of possible fluid component to this and the chest x-ray does show diffuse bilateral groundglass opacities hard to tell if this is just Covid versus may be a little bit of fluid overload. Patient is significantly hypertensive here. Dexamethasone was given intravenously given hypoxia and Covid. During this time significant difficulty getting the patient to have improved adequate oxygenation. Significance and concern for possible PE given the sudden decline of her status as well as the coronavirus. D-dimer is elevated given her critical status unable to perform a CTA. Hospitalist was present and evaluated the patient and I was personally at bedside for at least an hour and a half with the patient during this time given her critical status. Given her clinical decline concern again for PE and heparin drip was initiated with bolus. Additional IV fluid was given after she became hypotensive. Given the persistent hypoxia and development of hypotension, hospitalist performed phone consultation with the ICU. ICU nurse practitioner came to bedside in the emergency department. With significant concern for PE with hypotension and poor oxygenation and with her critical status feel that use of TPA is indicated. Patient is on near maximal ventilator support with 100% FiO2 and a PEEP of 18. She is too unstable to perform a CT at this point. Received multiple doses of fentanyl, small doses of propofol, and 1 dose of Versed for sedation while intubated. Given the hypotension do not feel she is a good candidate for propofol drip. As she began to become more purposeful and awake and received a dose of ketamine here in rocuronium given her poor oxygenation status. Given emergent indication central line was placed in the right femoral vein by myself and a arterial line was placed in the left radial artery by the nurse practitioner from the ICU; see his separate documentation. Decision was made for TPA and as such transfer lines were placed in a compressible site. Emergent indication given her critical status. Hospitalist did update the patient's via phone. ED Intubation performed by myself Indication acute hypoxic respiratory failure, Covid pneumonia. The patient was on 100% oxygen via BiPAP prior to the procedure. Suction, airway equipment, RSI drugs, respiratory equipment, and appropriate personnel were prepared prior to the initiation of the procedure. A time out was taken. Preinduction pulse ox of 90% was noted again with maximal support. Induction was performed with 25 mg of etomidate and paralysis with 150 mg of succinylcholine. After observing the clinical benefit of the medications, the airway was easily visualized utilizing a 3 glide scope. A 7.5 size ETT tube was placed atraumatically to 24 cm using standard technique; some mild frothy secretions were noted in the oropharynx on video laryngoscope. The cuff inflated without signs of malfunction. There were bilateral breath sounds were appreciated. Some frothy secretions were noted in the ET tube and this was suctioned. Patient was bagged and first attempted capping the ventilator was unsuccessful due to the ventilator malfunction issues. Continue to bag the patient manually. Pulse ox during intubation dropped to the 70s and was slow to recover. Maintained in the 80s for a significant period of time even with 100% FiO2 and 18 mmHg of PEEP. After additional sedation and paralysis with rocuronium patient's pulse ox did rise in the low 90s. Room was available in the [facility] ICU and she was taken there for further care. Post intubation chest x- ray was later obtained when the patient arrived in the ICU with appropriate tube placement. ED central line performed by myself Indication Covid pneumonia acute hypoxic respiratory failure requiring multiple intravenous medications and recurrent blood draws Implied emergent consent given the patient's intubated status and her critical illness Given the patient's critical status, heparinization, and plan for TPA a right femoral vein approach was decided upon (in case of bleeding with TPA in a compressible site). Using standard sterile technique including sterile drape, sterile gown, face shield, hair, and sterile gloves, with sterile ultrasound guidance using the standard Seldinger technique a triple-lumen catheter was placed in the left femoral vein without complication. 3 cc of 1% lidocaine were applied to the area initially after sanitizing it 2 times with chlorhexidine. 1 stick was utilized. No difficulty threading the wire which was removed without complication after dilation and placement of the catheter. All 3 ports and lines withdrew blood without complication and flushed easily. Biopatch was placed on the area and the central line was sutured in place with 2 simple interrupted sutures. Trace bleeding was noted to the area which quickly stopped after placement of dressing. DIAGNOSIS: Acute hypoxic respiratory failure, COVID-19 positive test (U07.1, COVID-19) with Acute Pneumonia (J12.89, Other viral pneumonia) DISPOSITION: Transfer to the [facility] ICU Critical Care I have personally spent 95 minutes of critical care time in the direct management of this patient. This includes bedside care, interpretation of diagnostic studies, and testing, discussion with consultants, patient, and family members, and other required patient management activities. These 95 minutes is in excess of all separately billable procedures. .
[2020-04-10] MEDS ORDERED: VANCOMYCIN HCL 1,500 MG in SODIUM CHLORIDE 0.9% 500 ML IV ONE (23:00)
[2020-04-10] MEDS ORDERED: PIPERACILLIN/TAZOBACTAM 3.375 GM in DEXTROSE 5% 100 ML IV ONE (23:00)
[2020-04-10 23:16] LABS: Potassium 4.7 mmol/L (3.5-5.1)
[2020-04-10 23:47] LABS: Partial Thromboplastin Ratio 1.1; Partial Thromboplastin Time 31.6 Seconds (21.0-31.0)
[2020-04-10 23:55] LABS: iSTAT Art Bld Gas pCO2 Correct 40 mmHg (35-46); iSTAT Art Bld Gas pH Corrected 7.307 (7.35-7.45); iSTAT Arterial Blood Gas HCO3 20 meg/L (19-24); iSTAT Arterial Blood Gas pCO2 39 mmHg (35-46); iSTAT Arterial Blood Gas pH 7.32 (7.35-7.45); iSTAT Arterial Blood Gas pO2 85 mmHg (80-95); iSTAT Arterial Blood Gas pO2 C 90; iSTAT Carbon Dioxide 21 mmol/L (24-31); iSTAT FiO2 80 %; iSTAT Hematocrit 40 % (37-47); iSTAT Hemoglobin 13.6 g/dl (12.0-16.0); iSTAT Potassium 4.6 mmol/L (3.3-5.0); iSTAT Site Art Line; iSTAT Sodium 136 mmol/L (135-144)
[2020-04-11] MEDS ORDERED: HEPARIN SODIUM/DEXTROSE 25,000 UNITS/500 ML BAG IV SCH (00:30)
[2020-04-11] MEDS: HEPARIN SODIUM/DEXTROSE 25,000 UNITS/500 ML BAG IV SCH (00:49)
[2020-04-11] MEDS ORDERED: CARBOHYDRATES FOR HYPOGLYCEMIA PO PRN (01:26)
[2020-04-11] MEDS ORDERED: GLUCOSE 10 TABS/TUBE PO PRN (01:26)
[2020-04-11] MEDS ORDERED: DEXTROSE 50% 50 ML SYRINGE IV PRN (01:26)
[2020-04-11] MEDS ORDERED: GLUCAGON FOR INJ 1 MG VIAL SQ PRN (01:26)
[2020-04-11] MEDS ORDERED: GLUCOSE 40% GEL 15 GM TUBE PO PRN (01:26)
[2020-04-11] MEDS ORDERED: PHARMACY GLYCEMIC MGMT CONSULT PRN (01:39)
[2020-04-11] MEDS ORDERED: INSULIN ASPART 100 UNITS/ML 3 ML PEN SC SCH ×2 (02:00→06:00)
[2020-04-11 03:33] LABS: Appearance Urine Clear (Clear); Bilirubin Urine Negative (Negative); Blood Urine Trace (Negative); Color Urine Yellow; Epithelial Cell Urine Auto >30 /lpf (0-5); Glucose Urine UA Negative (Negative); Ketones Urine Negative (Negative); Leukocyte Esterase Urine Negative (Negative); Nitrite Urine Negative (Negative); Protein Urine Negative (Negative); Specific Gravity Urine 1.022 (1.000-1.030); Urobilinogen Urine Negative (Negative)
[2020-04-11 03:57] LABS: Granular Casts Urine >30 /lpf (0)
[2020-04-11 03:58] LABS: Mucus Urine Present (None Prsent); Uric Acid Crystals Urine Present (None Prsent)
[2020-04-11 04:01] LABS: Bacteria Urine Automated 1+ (Negative)
[2020-04-11 04:42] LABS: iSTAT Art Bld Gas pCO2 Correct 34 mmHg (35-46); iSTAT Art Bld Gas pH Corrected 7.433 (7.35-7.45); iSTAT Arterial Blood Gas HCO3 22 meg/L (19-24); iSTAT Arterial Blood Gas pCO2 33 mmHg (35-46); iSTAT Arterial Blood Gas pH 7.44 (7.35-7.45); iSTAT Arterial Blood Gas pO2 66 mmHg (80-95); iSTAT Arterial Blood Gas pO2 C 67; iSTAT Carbon Dioxide 23 mmol/L (24-31); iSTAT FiO2 50 %; iSTAT Hematocrit 35 % (37-47); iSTAT Hemoglobin 11.9 g/dl (12.0-16.0); iSTAT Potassium 3.5 mmol/L (3.3-5.0); iSTAT Site Art Line; iSTAT Sodium 138 mmol/L (135-144)
[2020-04-11] MEDS: PIPERACILLIN/TAZOBACTAM 3.375 GM in DEXTROSE 5% 100 ML IV SCH ×3 (04:46→20:20)
[2020-04-11] MEDS: CISATRACURIUM BESYLATE 40 MG in 0.9 % SODIUM CHLORIDE 80 ML IV SCH ×2 (06:07→21:00)
[2020-04-11 07:27] LABS: Hematocrit (blood only) 34.7 % (37-47); Hemoglobin 11.8 g/dL (12.0-16.0); Immature Granulocytes # (auto) 0.01 K/uL (0.00-0.02); Immature Granulocytes % (auto) 0.2 %; Lymphocytes % (auto) 12.2 %; Mean Corpuscular Hemoglobin 29.2 pg (25-34); Mean Corpuscular Volume 85.9 fL (80-100); Mean Platelet Volume 8.9 fL (7.4-10.4); Monocytes # (auto) 0.33 K/uL (0.11-0.59); Monocytes % (auto) 8.1 %; Neutrophils # (auto) 3.25 K/uL (1.4-6.5); Neutrophils % (auto) 79.5 %; Platelet Count 174 K/uL (130-400); RDW Coefficient of Variation 12.9 % (11.5-14.5); RDW Standard Deviation 40.5 fL (36.4-46.3); Red Blood Count 4.04 M/uL (4.2-5.4); White Blood Count 4.09 K/uL (4.8-10.8)
[2020-04-11 07:39] LABS: Partial Thromboplastin Ratio 1.4; Partial Thromboplastin Time 38.7 Seconds (21.0-31.0)
--- NOTE | 2020-04-11 07:44 | Critical Care Progress Note ---
Date of Service April 11, 2020 Assessment & Plan (1) Admitted to intensive care unit: Reason Critically Ill: 59-year-old female with positive COVID-19, and suspected pulmonary embolism requiring intubation, thrombolysis therapy, vasopressors and paralyzed and proned Neuro - Sedation: Versed and fentanyl Paralytics: Nimbex, titrate up his monitor per protocol Cardiac - Cardiogenic shockmost likely from massive PE as patient acutely decompensated in the ED -EKG without ST elevations, initial troponin unremarkable -Currently maintaining MAP greater than 65 on Levophed, central line and arterial line inserted in ED -Cannot rule out septic component at this time will start on broad-spectrum antibiotics, see ID below -Received TPA in ED, heparin drip to follow -Follow-up echo in a.m. Respiratory - Acute hypoxic respiratory failurepatient with COVID-19 pneumonia and diffuse b ilateral opacities on chest x-ray. Also suspect pulmonary embolism given patient's rapid decompensation along with cardiogenic shock. -Intubated in the emergency department requiring high ventilator settings but continued to have oxygen saturation in the 80s. Was paralyzed and proned at 2130 once transferred to the ICU and showed immediate improvement in oxygen saturation and currently weaning ventilator settings. We will continue to trend ABGs. -Received emergent TPA administration in the ED for presumed PE. Plan to start heparin drip once patient's PTT within goal range. -Started on remdesivir and dexamethasone as patient only within 3 days of symptoms -Started on empiric broad-spectrum antibiotics, see ID below -Continuous monitoring on pulse ox -Plan to attempt to obtain CT chest once patient is more hemodynamically stable GI - OG to low intermittent suction, n.p.o. IV famotidine RENAL/LYTES - Creatinine within normal limits, monitor with routine CBCs and replete electrolytes as indicated - Foleystrict I's and O ENDO - No history of diabetes, ICU hyperglycemic protocol Hypothyroidismcontinue Synthroid HEME - H&H stable, monitor closely for signs of bleeding following thrombolytics and monitor routine CBCs ID - COVID-19 PCR positive, influenza a and B negative Procalcitonin elevated but lactate within normal limits and currently afebrile Blood cultures pending, plan to continue empiric antibiotics with vancomycin and Zosyn for now MRSA swab pending, will likely DC Vanco if negative LINES/IV ACCESS - CVC, A-line, Krishnan, OG tube, ET tube DVT PROPHYLAXIS - SCDs, heparin drip CODE STATUSper discussion with patient's , patient is to remain full code at this time. I have personally spent 85 minutes of critical care time in the direct management of this patient. This is a life/limb threatening event. This includes time spent evaluating patient, direct bedside care, chart review, placing orders, interpretation of diagnostic studies, discussion with consultants, patient, and family members, as well as other required patient management activities. This time is exclusive of all separately billable procedures, and teaching time and separate from and in addition to any other critical care service time. Thank you for allowing us to participate in the care of this patient. Please refer to my attending physician's documentation for any further recommendations. (2) Acute respiratory failure with hypoxia: (3) Cardiogenic shock: (4) Pulmonary embolism associated with COVID-19: (5) Pneumonia due to COVID-19 virus: (6) Hypothyroidism: (7) Hyperlipidemia: (8) Anxiety: (9) Depression: (10) ARDS (adult respiratory distress syndrome): Admission and Anticipated Discharge Date Admission Date: April 10, 2020 Results & Data Results & Data ([facility]) Vital Signs (Past 12 Hours) Vital Signs Temp Pulse Pulse Resp BP BP BP 04/11/20 06:08 37.5 C 86 22 98/64 L 04/11/20 04:40 37.5 C 82 22 94/60 L 04/11/20 04:03 82 26 H 04/11/20 03:07 37.4 C 82 26 H 108/69 04/11/20 02:00 37.4 C 83 26 H 116/81 04/11/20 01:00 37.3 C 84 112/77 04/11/20 00:30 37.4 C 88 112/81 04/11/20 00:01 37.7 C H 81 20 126/67 112/77 04/11/20 00:00 37.7 C H 82 112/04/10/20 23:38 95 H 20 04/10/20 23:30 37.8 C H 95 H 131/89 04/10/20 23:00 37.7 C H 92 H 120/90 04/10/20 22:30 37.6 C H 85 118/81 04/10/20 22:00 37.7 C H 86 20 103/59 L 04/10/20 21:30 37.7 C H 122 H 24 145/96 H 04/10/20 21:01 109 H 20 04/10/20 21:00 108 H 20 133/87 04/10/20 20:25 124 H 20 04/10/20 19:55 115 H 20 114/82 04/10/20 19:50 110 H 20 04/10/20 19:45 102 H 20 90/59 L Pulse Ox 04/11/20 06:08 96 04/11/20 04:40 95 04/11/20 04:03 95 04/11/20 03:07 98 04/11/20 02:00 99 04/11/20 01:00 99 04/11/20 00:30 99 04/11/20 00:01 99 04/11/20 00:00 99 04/10/20 23:38 100 04/10/20 23:30 100 04/10/20 23:00 97 04/10/20 22:30 96 04/10/20 22:00 97 04/10/20 21:30 91 04/10/20 21:01 92 04/10/20 21:00 93 04/10/20 20:25 95 04/10/20 19:55 95 04/10/20 19:50 94 04/10/20 19:45 94 Coding Diagnoses Admitted to intensive care unit Z78.9 Acute respiratory failure with hypoxia J96.01 Cardiogenic shock R57.0 Pulmonary embolism associated with COVID-19 U07.1; I26.99 Pneumonia due to COVID-19 virus U07.1; J12.82 Hypothyroidism E03.9 Hyperlipidemia E78.5 Anxiety F41.9 Depression F32.9 ARDS (adult respiratory distress syndrome) J80
--- NOTE | 2020-04-11 07:53 | XRay Report ---
XR chest 1V portable CLINICAL HISTORY: post intubation COMPARISON STUDY: 04/10/2020 FINDINGS: The cardiac and mediastinal contours remain stable. There is been interval placement of end otracheal tube 17 mm above the celia. Diffuse bilateral pulmonary airspace opacities persist.[ IMPRESSION: Interval placement of the endotracheal tube 17 mm above the celia. ACT 112: Negative or not required by law. Electronically signed by: Michael Thomas M.D. 04/11/2020 7:52 AM
[2020-04-11 08:08] LABS: Estimated Average Glucose 123 mg/dl; Hemoglobin A1C 5.9 % (4.5-5.6)
[2020-04-11 08:19] LABS: BUN Creatinine Ratio 25.3 (10-20); Calcium 7.3 mg/dl (8.5-10.1); Creatinine Clr Calc Pharmacy 89.5 ml/min; Est GFR (African American) 116.8; Est GFR (Non-African American) 100.8; Magnesium 1.7 mg/dl (1.8-2.4); Phosphorus 2.8 mg/dl (2.5-4.9); Potassium 3.5 mmol/L (3.5-5.1); Troponin I 0.083 ng/ml (0-0.045)
[2020-04-11] MEDS ORDERED: LEVOTHYROXINE SODIUM 37.5 MCG in SYRINGE 0 ML IV SCH (09:00)
[2020-04-11] MEDS: INSULIN ASPART 100 UNITS/ML 3 ML PEN SC SCH ×4 (09:43→20:19)
[2020-04-11] MEDS: FAMOTIDINE 20 MG in SYRINGE 3 ML IV SCH ×2 (09:44→20:59)
[2020-04-11] MEDS: fentaNYL DRIP 1,250 MCG/250 ML BAG IV SCH ×2 (09:48→22:19)
--- NOTE | 2020-04-11 11:34 | XRay Report ---
XR chest 1V portable HISTORY: Mesentery failure. COMPARISON: Chest 04/10/2020. FINDINGS: Endotracheal tube terminates 6 mm from the celia. This should be pulled back by approximat chelita 2 cm. Nasogastric tube terminates below the diaphragm. The tip is not included on this study. No pneumothorax. There are low lung volumes. Perihilar interstitial/vascular thickening and bilateral ai rspace opacities are again noted. This appears to have progressed within the left lower lobe. Suspect a small left pleural effusion. IMPRESSION: 1. The endotracheal tube terminates 6 mm from the celia. This should be pulled back by approximately 2 cm. 2. Perihilar interstitial/vascular thickening and bilateral airspace opacities persist. This could be due to pulmonary edema or a pneumonia. 3. These findings were discussed Dr. Kamlesh Kay at 11:57 AM on 04/11/2020. ACT 112: Negative or not required by law. Electronically signed by: Justice De Leon M.D. 04/11/2020 11:57 AM
[2020-04-11] MEDS ORDERED: VANCOMYCIN HCL 1,000 MG in SODIUM CHLORIDE 0.9% 250 ML IV SCH (12:00)
--- NOTE | 2020-04-11 12:00 | Electrocardiogram Report ---
Test Reason : Blood Pressure : / mmHG Vent. Rate : 109 BPM Atrial Rate : 109 BPM P-R Int : 156 ms QRS Dur : 086 ms QT Int : 370 ms P-R-T Axes : 004 041 044 degrees QTc Int : 498 ms Poor data quality, interpretation may be adversely affected Sinus tachycardia Nonspecific T wave abnormality Abnormal ECG When compared with ECG of 22-OCT-2019 11:09, Borderline criteria for Inferior infarct are no longer Present Confirmed by Shiv Escamilla ([id number]) on 04/11/2020 12:00:10 PM Referred By: REFERRED SELF Confirmed By:Shiv Escamilla
--- NOTE | 2020-04-11 12:02 | Electrocardiogram Report ---
Test Reason : Blood Pressure : / mmHG Vent. Rate : 124 BPM Atrial Rate : 124 BPM P-R Int : 150 ms QRS Dur : 072 ms QT Int : 292 ms P-R-T Axes : 017 064 008 degrees QTc Int : 419 ms Poor data quality, interpretation may be adversely affected Sinus tachycardia Nonspecific T wave abnormality Abnormal ECG When compared with ECG of 10-APR-2020 17:02, (unconfirmed) T wave inversion now evident in Inferior leads Nonspecific T wave abnormality no longer evident in Anterior leads Confirmed by Shiv Escamilla ([id number]) on 04/11/2020 12:01:36 PM Referred By: REFERRED SELF Confirmed By:Shiv Escamilla
--- NOTE | 2020-04-11 12:05 | Pharmacy Report ---
Pharmacy Glycemic Short Note 2 - Date of Service April 11, 2020 - Glycemic Short BSG Results (Last 24 hours): 04/10/20 04/10/20 04/10/20 16:54 21:52 23:43 Glucose 105 H 275 H POC Glucose 255 H 04/11/20 04/11/20 04/11/20 02:23 06:05 07:08 Glucose 111 H POC Glucose 250 H 123 H OUTPATIENT ANTIDIABETIC REGIMEN: * N/A, no prior h/o DM * A1c = 5.9% 04/11/20 ASSESSMENT: * Patient admitted yesterday for acute PE w/ hypotension requiring thrombolysis, and pressure support. Empiric abx therapy also ordered due to dx of COVID19 viral pna, possible superimposed bacterial pna, elevated procal. * No prior dx of DM and A1c not diagnostic for DM however does indicate possible impaired insulin sensitivity / "pre-DM" * Currently no dexamethasone is ordered * She was acutely hyperglycemic on admission however this has resolved without insulin therapy. * Will initiate Novolog SQ Q 4 hrs utilizing weight and "moderate-severe" stress level given current BSG pattern despite stressors. Basal insulin will be added if glycemic control deteriorates w/ Novolog alone. PLAN FOR INPATIENT GLYCEMIC CONTROL: * Basal insulin * None at this time * Bolus insulin * NovoLog per scale Q 4 hrs * Goal Range: Low 110 mg/dL - High 140 mg/dL * Correction Factor: 25 mg/dL/unit * Nutritional / Prandial insulin per carb ratio of 1 unit per 10 grams CHO consumed
--- NOTE | 2020-04-11 12:08 | Electrocardiogram Report ---
Test Reason : Blood Pressure : / mmHG Vent. Rate : 126 BPM Atrial Rate : 126 BPM P-R Int : 150 ms QRS Dur : 072 ms QT Int : 290 ms P-R-T Axes : 023 062 -06 degrees QTc Int : 420 ms Poor data quality, interpretation may be adversely affected Sinus tachycardia Nonspecific ST and T wave abnormality Abnormal ECG When compared with ECG of 10-APR-2020 17:44, (unconfirmed) No significant change was found Confirmed by Shiv Escamilla ([id number]) on 04/11/2020 12:08:21 PM Referred By: REFERRED SELF Confirmed By:Shiv Escamilla
[2020-04-11 14:03] LABS: iSTAT Arterial Blood Gas HCO3 19 meg/L (19-24); iSTAT Arterial Blood Gas pCO2 52 mmHg (35-46); iSTAT Arterial Blood Gas pH 7.16 (7.35-7.45); iSTAT Arterial Blood Gas pO2 74 mmHg (80-95); iSTAT Carbon Dioxide 20 mmol/L (24-31); iSTAT Hematocrit 35 % (37-47); iSTAT Hemoglobin 11.9 g/dl (12.0-16.0); iSTAT Potassium 4.3 mmol/L (3.3-5.0); iSTAT Sodium 139 mmol/L (135-144)
[2020-04-11 14:09] LABS: iSTAT Arterial Blood Gas pCO2 31 mmHg (35-46); iSTAT Arterial Blood Gas pH 7.22 (7.35-7.45); iSTAT Arterial Blood Gas pO2 64 mmHg (80-95); iSTAT Carbon Dioxide 14 mmol/L (24-31); iSTAT Hematocrit 42 % (37-47); iSTAT Hemoglobin 14.3 g/dl (12.0-16.0); iSTAT Potassium 2.9 mmol/L (3.3-5.0); iSTAT Sodium 132 mmol/L (135-144)
[2020-04-11 14:10] LABS: iSTAT Arterial Blood Gas HCO3 13 meg/L (19-24)
--- NOTE | 2020-04-11 16:08 | Hospitalist Progress Note ---
Date of Service April 11, 2020 Assessment & Plan (1) Acute respiratory failure with hypoxia: Secondary to ARDS, suspected PE, COVID-19 pneumonia, possible bacterial pneumonia. intubated and proned ventilator management per ICU (2) Pneumonia due to COVID-19 virus: Dexamethasone 6mg IV daily. Convalescent plasma ordered. Remdesivir 5 day IV course. (3) Pulmonary embolism associated with COVID-19: Suspected based on sudden onset shock in the ER with acute respiratory failure in the setting of chest pain. Unstable to go through CT for PE. Improved hemodynamics and hypoxia after tPA given. Will start back on IV heparin drip per protocol, follow PTT (4) ARDS (adult respiratory distress syndrome): ICU management on ventilator. Difficult to rule out bacterial pneumonia with positive procalcitonin. Antibiotics per ICU with Zosyn and Vancomycin. Follow up blood cultures prone today (5) Cardiogenic shock: In setting of suspected PE. Improved with IV fluid resuscitation, tPA and started on Levophed in ER. maintain MAP of [address] (6) Hypothyroidism: Continue levothyroxine once she is able to eat and drink. (7) Hyperlipidemia: Restart atorvastatin when able. (8) Depression: Restart sertraline when able to avoid withdrawal Admission and Anticipated Discharge Date Admission Date: April 10, 2020 Subjective reviewed chart, patient quickly decompensated when she arrived in the ED required intubation suspected PE when she became hypotensive with SBP in the 70's, treated with tPA now in ICU, intubated, sedated she was turned prone this afternoon under direction of Dr. Damon labs show WBC 4k, Hb 11, plts 174 PaO2 66 on ABG this AM Cr and electrolytes stable this morning Review of Systems Review of Systems: Unobtainable due to endotracheal tube and Unobtainable due to reduced consciousness Physical Exam Constitutional: well developed, well nourished and + mechanically ventilated; no acute distress Neck: trachea midline, no thyromegaly Respiratory: symmetric chest movement Auscultation: lungs clear to auscultation bilaterally Cardiovascular: RRR, no murmur, no edema Gastrointestinal (Abdomen): normal bowel sounds, soft, nontender, no hepatosplenomegaly Musculoskeletal: Head/Neck/Chest: normocephalic and head atraumatic Extremities: extremities normal to inspection Skin: no rashes, warm and dry Neurologic: + obtunded; no focal motor deficits Psychiatric: Orientation: + not alert Results & Data Results & Data ([facility]) Vital Signs (Past 12 Hours) Vital Signs Temp Pulse Resp BP Pulse Ox 04/11/20 15:29 83 21 90 04/11/20 13:00 37.3 C 76 82/52 L 93 04/11/20 12:45 77 84/55 L 92 04/11/20 12:31 37.5 C 82 92 04/11/20 12:30 37.8 C H 84 95/64 L 91 04/11/20 12:15 79 89/59 L 90 04/11/20 12:01 37.1 C 80 89 L 04/11/20 12:00 37.2 C 80 96/61 L 89 L 04/11/20 11:45 80 92/61 L 89 L 04/11/20 11:31 37.9 C H 82 87 L 04/11/20 11:30 37.9 C H 82 104/63 87 L 04/11/20 11:15 37.8 C H 80 99/62 L 86 L 04/11/20 11:01 37.8 C H 83 87 L 04/11/20 11:00 37.8 C H 83 109/65 88 L 04/11/20 10:47 88 20 90 04/11/20 10:01 37.7 C H 87 97 04/11/20 10:00 37.7 C H 87 104/67 96 04/11/20 09:45 37.6 C H 87 108/64 96 04/11/20 09:31 37.6 C H 87 96 04/11/20 09:30 37.6 C H 88 105/64 96 04/11/20 09:15 37.6 C H 87 108/66 96 04/11/20 09:01 37.6 C H 88 96 04/11/20 09:00 37.6 C H 86 104/64 96 04/11/20 08:45 37.6 C H 86 105/64 96 04/11/20 08:31 37.6 C H 88 96 04/11/20 08:30 37.6 C H 87 105/69 97 04/11/20 08:28 87 22 96 04/11/20 08:15 37.6 C H 86 101/64 96 04/11/20 08:01 37.6 C H 85 96 04/11/20 08:00 37.5 C 87 99/65 L 96 04/11/20 07:45 37.5 C 87 104/64 96 04/11/20 07:31 37.6 C H 85 96 04/11/20 07:30 37.6 C H 85 99/63 L 96 04/11/20 07:15 37.6 C H 85 100/63 96 04/11/20 07:01 37.5 C 86 97 04/11/20 07:00 37.5 C 85 98/65 L 96 04/11/20 06:08 37.5 C 86 22 98/64 L 96 04/11/20 04:40 37.5 C 82 22 94/60 L 95 Laboratory Results Laboratory Results - last 24 hr 04/10/20 04/10/20 04/10/20 16:54 16:54 16:54 WBC 3.47 L RBC 4.72 Hgb 13.5 POC Hgb Hct 41.2 POC Hct MCV 87.3 MCH 28.6 MCHC 32.8 RDW Std Deviation 41.1 RDW Coeff of Julia 12.7 Plt Count 194 MPV 9.0 Immature Gran % (Auto) 0.3 Neut % (Auto) 68.6 Lymph % (Auto) 19.3 [place] % (Auto) 10.1 Eos % (Auto) 1.4 Baso % (Auto) 0.3 Neut # (Auto) 2.38 Lymph # (Auto) 0.67 L [place] # (Auto) 0.35 Eos # (Auto) 0.05 Baso # (Auto) 0.01 Immature Gran # (Auto) 0.01 PT 10.3 INR 1.0 APTT 27.1 PTT Ratio 1.0 D-Dimer Sample Site POC pH POC pCO2 POC pO2 POC HCO3 POC Total CO2 POC Base Excess ABG pH (Temp Correct) ABG pCO2 (Temp Corrct POC ABG pO2 at Pt Temp POC ABG O2 Sat Charlie Test O2 Delivery Device POC O2 Rate Minute Ventilation POC FiO2 Tidal Volume PEEP POC Sodium Sodium 137 POC Potassium Potassium 3.8 Chloride 103 Carbon Dioxide 28 Anion Gap 6.0 BUN 14 Creatinine 0.75 Est Cr Clr Drug Dosing 68.1 Est GFR ( Amer) 100.4 Est GFR (Non-Af Amer) 86.6 BUN/Creatinine Ratio 18.6 Glucose 105 H POC Glucose Estimat Average Glucose Hemoglobin A1c Lactate Calcium 8.9 Phosphorus Magnesium Ferritin Total Bilirubin 0.5 AST 27 ALT 34 Alkaline Phosphatase 90 Lactate Dehydrogenase Total Creatine Kinase Troponin I 0.027 C-Reactive Protein Total Protein 8.1 Albumin 4.0 Globulin 4.1 H Albumin/Globulin Ratio 1.0 Procalcitonin TSH Free T4 Urine Color Urine Appearance Urine pH Ur Specific [place] Urine Protein Urine Glucose (UA) Urine Ketones Urine Blood Urine Nitrite Urine Bilirubin Urine Urobilinogen Ur Leukocyte Esterase Urine WBC (Auto) Urine RBC (Auto) U Hyaline Cast (Auto) U Epithel Cells (Auto) Urine Bacteria (Auto) Uric Acid Crystals Granular Casts Urine Mucus Nasal Screen MRSA (PCR) COVID-19 Eval Order Influ A Molecular Assay Influ B Molecular Assay SARS-CoV-2, RNA, NAAT Blood Type Antibody Screen 04/10/20 04/10/20 04/10/20 16:55 16:55 16:55 WBC RBC Hgb POC Hgb Hct POC Hct MCV MCH MCHC RDW Std Deviation RDW Coeff of Julia Plt Count MPV Immature Gran % (Auto) Neut % (Auto) Lymph % (Auto) [place] % (Auto) Eos % (Auto) Baso % (Auto) Neut # (Auto) Lymph # (Auto) [place] # (Auto) Eos # (Auto) Baso # (Auto) Immature Gran # (Auto) PT INR APTT PTT Ratio D-Dimer Sample Site POC pH POC pCO2 POC pO2 POC HCO3 POC Total CO2 POC Base Excess ABG pH (Temp Correct) ABG pCO2 (Temp Corrct POC ABG pO2 at Pt Temp POC ABG O2 Sat Charlie Test O2 Delivery Device POC O2 Rate Minute Ventilation POC FiO2 Tidal Volume PEEP POC Sodium Sodium POC Potassium Potassium Chloride Carbon Dioxide Anion Gap BUN Creatinine Est Cr Clr Drug Dosing Est GFR ( Amer) Est GFR (Non-Af Amer) BUN/Creatinine Ratio Glucose POC Glucose Estimat Average Glucose Hemoglobin A1c Lactate Calcium Phosphorus Magnesium Ferritin Total Bilirubin AST ALT Alkaline Phosphatase Lactate Dehydrogenase Total Creatine Kinase Troponin I C-Reactive Protein Total Protein Albumin Globulin Albumin/Globulin Ratio Procalcitonin TSH Free T4 Urine Color Urine Appearance Urine pH Ur Specific [place] Urine Protein Urine Glucose (UA) Urine Ketones Urine Blood Urine Nitrite Urine Bilirubin Urine Urobilinogen Ur Leukocyte Esterase Urine WBC (Auto) Urine RBC (Auto) U Hyaline Cast (Auto) U Epithel Cells (Auto) Urine Bacteria (Auto) Uric Acid Crystals Granular Casts Urine Mucus Nasal Screen MRSA (PCR) COVID-19 Eval [facility] Influ A Molecular Assay Negative Influ B Molecular Assay Negative SARS-CoV-2, RNA, NAAT POSITIVE A* Blood Type Antibody Screen 04/10/20 04/10/20 04/10/20 18:15 19:53 20:01 WBC RBC Hgb POC Hgb 14.3 11.9 L Hct POC Hct 42 35 L MCV MCH MCHC RDW Std Deviation RDW Coeff of Julia Plt Count MPV Immature Gran % (Auto) Neut % (Auto) Lymph % (Auto) [place] % (Auto) Eos % (Auto) Baso % (Auto) Neut # (Auto) Lymph # (Auto) [place] # (Auto) Eos # (Auto) Baso # (Auto) Immature Gran # (Auto) PT INR APTT PTT Ratio D-Dimer Sample Site POC pH 7.22 L 7.16 L* POC pCO2 31 L 52 H POC pO2 64 L 74 L POC HCO3 13 L 19 POC Total CO2 14 L 20 L POC Base Excess -15.0 L -10.0 L ABG pH (Temp Correct) ABG pCO2 (Temp Corrct POC ABG pO2 at Pt Temp POC ABG O2 Sat Charlie Test O2 Delivery Device POC O2 Rate Minute Ventilation POC FiO2 Tidal Volume PEEP POC Sodium 132 L 139 Sodium POC Potassium 2.9 L 4.3 Potassium Chloride Carbon Dioxide Anion Gap BUN Creatinine Est Cr Clr Drug Dosing Est GFR ( Amer) Est GFR (Non-Af Amer) BUN/Creatinine Ratio Glucose POC Glucose Estimat Average Glucose Hemoglobin A1c Lactate Calcium Phosphorus Magnesium Ferritin Total Bilirubin AST ALT Alkaline Phosphatase Lactate Dehydrogenase Total Creatine Kinase Troponin I C-Reactive Protein Total Protein Albumin Globulin Albumin/Globulin Ratio Procalcitonin TSH Free T4 Urine Color Urine Appearance Urine pH Ur Specific [place] Urine Protein Urine Glucose (UA) Urine Ketones Urine Blood Urine Nitrite Urine Bilirubin Urine Urobilinogen Ur Leukocyte Esterase Urine WBC (Auto) Urine RBC (Auto) U Hyaline Cast (Auto) U Epithel Cells (Auto) Urine Bacteria (Auto) Uric Acid Crystals Granular Casts Urine Mucus Nasal Screen MRSA (PCR) COVID-19 Eval Order Influ A Molecular Assay Influ B Molecular Assay SARS-CoV-2, RNA, NAAT Blood Type B Negative Antibody Screen NEGATIVE 04/10/20 04/10/20 04/10/20 20:01 20:01 20:01 WBC RBC Hgb POC Hgb Hct POC Hct MCV MCH MCHC RDW Std Deviation RDW Coeff of Julia Plt Count MPV Immature Gran % (Auto) Neut % (Auto) Lymph % (Auto) [place] % (Auto) Eos % (Auto) Baso % (Auto) Neut # (Auto) Lymph # (Auto) [place] # (Auto) Eos # (Auto) Baso # (Auto) Immature Gran # (Auto) PT INR APTT PTT Ratio D-Dimer 3630 H* Sample Site POC pH POC pCO2 POC pO2 POC HCO3 POC Total CO2 POC Base Excess ABG pH (Temp Correct) ABG pCO2 (Temp Corrct POC ABG pO2 at Pt Temp POC ABG O2 Sat Charlie Test O2 Delivery Device POC O2 Rate Minute Ventilation POC FiO2 Tidal Volume PEEP POC Sodium Sodium POC Potassium Potassium Chloride Carbon Dioxide Anion Gap BUN Creatinine Est Cr Clr Drug Dosing Est GFR ( Amer) Est GFR (Non-Af Amer) BUN/Creatinine Ratio Glucose POC Glucose Estimat Average Glucose Hemoglobin A1c Lactate Calcium Phosphorus Magnesium Ferritin 370.2 Total Bilirubin AST ALT Alkaline Phosphatase Lactate Dehydrogenase 241 Total Creatine Kinase 116 Troponin I C-Reactive Protein 2.08 H Total Protein Albumin Globulin Albumin/Globulin Ratio Procalcitonin TSH 4.510 H Free T4 0.96 Urine Color Urine Appearance Urine pH Ur Specific [place] Urine Protein Urine Glucose (UA) Urine Ketones Urine Blood Urine Nitrite Urine Bilirubin Urine Urobilinogen Ur Leukocyte Esterase Urine WBC (Auto) Urine RBC (Auto) U Hyaline Cast (Auto) U Epithel Cells (Auto) Urine Bacteria (Auto) Uric Acid Crystals Granular Casts Urine Mucus Nasal Screen MRSA (PCR) COVID-19 Eval Order Influ A Molecular Assay Influ B Molecular Assay SARS-CoV-2, RNA, NAAT Blood Type Antibody Screen 04/10/20 04/10/20 04/10/20 21:38 21:38 21:52 WBC 7.64 RBC 4.69 Hgb 13.6 POC Hgb Hct 41.0 POC Hct MCV 87.4 MCH 29.0 MCHC 33.2 RDW Std Deviation 42.0 RDW Coeff of Julia 13.1 Plt Count 333 D MPV 9.4 Immature Gran % (Auto) 0.4 Neut % (Auto) 87.0 Lymph % (Auto) 6.8 [place] % (Auto) 5.6 Eos % (Auto) 0.1 Baso % (Auto) 0.1 Neut # (Auto) 6.64 H Lymph # (Auto) 0.52 L [place] # (Auto) 0.43 Eos # (Auto) 0.01 Baso # (Auto) 0.01 Immature Gran # (Auto) 0.03 H PT INR APTT PTT Ratio D-Dimer Sample Site POC pH POC pCO2 POC pO2 POC HCO3 POC Total CO2 POC Base Excess ABG pH (Temp Correct) ABG pCO2 (Temp Corrct POC ABG pO2 at Pt Temp POC ABG O2 Sat Charlie Test O2 Delivery Device POC O2 Rate Minute Ventilation POC FiO2 Tidal Volume PEEP POC Sodium Sodium 135 L POC Potassium Potassium 4.7 D Chloride 106 Carbon Dioxide 21 Anion Gap 8.0 BUN 18 Creatinine 0.87 Est Cr Clr Drug Dosing 58.6 Est GFR ( Amer) 83.9 Est GFR (Non-Af Amer) 72.4 BUN/Creatinine Ratio 21.1 H Glucose 275 H POC Glucose Estimat Average Glucose Hemoglobin A1c Lactate 1.1 Calcium 7.1 L D Phosphorus Magnesium Ferritin Total Bilirubin AST ALT Alkaline Phosphatase Lactate Dehydrogenase Total Creatine Kinase Troponin I 0.055 H* C-Reactive Protein Total Protein Albumin Globulin Albumin/Globulin Ratio Procalcitonin TSH Free T4 Urine Color Urine Appearance Urine pH Ur Specific [place] Urine Protein Urine Glucose (UA) Urine Ketones Urine Blood Urine Nitrite Urine Bilirubin Urine Urobilinogen Ur Leukocyte Esterase Urine WBC (Auto) Urine RBC (Auto) U Hyaline Cast (Auto) U Epithel Cells (Auto) Urine Bacteria (Auto) Uric Acid Crystals Granular Casts Urine Mucus Nasal Screen MRSA (PCR) COVID-19 Eval Order Influ A Molecular Assay Influ B Molecular Assay SARS-CoV-2, RNA, NAAT Blood Type Antibody Screen 04/10/20 04/10/20 04/10/20 21:52 22:15 23:25 WBC RBC Hgb POC Hgb Hct POC Hct MCV MCH MCHC RDW Std Deviation RDW Coeff of Julia Plt Count MPV Immature Gran % (Auto) Neut % (Auto) Lymph % (Auto) [place] % (Auto) Eos % (Auto) Baso % (Auto) Neut # (Auto) Lymph # (Auto) [place] # (Auto) Eos # (Auto) Baso # (Auto) Immature Gran # (Auto) PT INR APTT 31.6 H PTT Ratio 1.1 D-Dimer Sample Site POC pH POC pCO2 POC pO2 POC HCO3 POC Total CO2 POC Base Excess ABG pH (Temp Correct) ABG pCO2 (Temp Corrct POC ABG pO2 at Pt Temp POC ABG O2 Sat Charlie Test O2 Delivery Device POC O2 Rate Minute Ventilation POC FiO2 Tidal Volume PEEP POC Sodium Sodium POC Potassium Potassium Chloride Carbon Dioxide Anion Gap BUN Creatinine Est Cr Clr Drug Dosing Est GFR ( Amer) Est GFR (Non-Af Amer) BUN/Creatinine Ratio Glucose POC Glucose Estimat Average Glucose Hemoglobin A1c Lactate Calcium Phosphorus Magnesium Ferritin Total Bilirubin AST ALT Alkaline Phosphatase Lactate Dehydrogenase Total Creatine Kinase Troponin I C-Reactive Protein Total Protein Albumin Globulin Albumin/Globulin Ratio Procalcitonin 3.37 H TSH Free T4 Urine Color Urine Appearance Urine pH Ur Specific [place] Urine Protein Urine Glucose (UA) Urine Ketones Urine Blood Urine Nitrite Urine Bilirubin Urine Urobilinogen Ur Leukocyte Esterase Urine WBC (Auto) Urine RBC (Auto) U Hyaline Cast (Auto) U Epithel Cells (Auto) Urine Bacteria (Auto) Uric Acid Crystals Granular Casts Urine Mucus Nasal Screen MRSA (PCR) Negative COVID-19 Eval Order Influ A Molecular Assay Influ B Molecular Assay SARS-CoV-2, RNA, NAAT Blood Type Antibody Screen 04/10/20 04/10/20 04/11/20 23:38 23:43 02:23 WBC RBC Hgb POC Hgb 13.6 Hct POC Hct 40 MCV MCH MCHC RDW Std Deviation RDW Coeff of Julia Plt Count MPV Immature Gran % (Auto) Neut % (Auto) Lymph % (Auto) [place] % (Auto) Eos % (Auto) Baso % (Auto) Neut # (Auto) Lymph # (Auto) [place] # (Auto) Eos # (Auto) Baso # (Auto) Immature Gran # (Auto) PT INR APTT PTT Ratio D-Dimer Sample Site Art Line POC pH 7.32 L POC pCO2 39 POC pO2 85 POC HCO3 20 POC Total CO2 21 L POC Base Excess -6.0 ABG pH (Temp Correct) 7.307 L ABG pCO2 (Temp Corrct 40 POC ABG pO2 at Pt Temp 90 POC ABG O2 Sat 96.0 H Charlie Test NA O2 Delivery Device Ventilator POC O2 Rate 20 Minute Ventilation 7.6 POC FiO2 80 Tidal Volume 380 PEEP 10 POC Sodium 136 Sodium POC Potassium 4.6 Potassium Chloride Carbon Dioxide Anion Gap BUN Creatinine Est Cr Clr Drug Dosing Est GFR ( Amer) Est GFR (Non-Af Amer) BUN/Creatinine Ratio Glucose POC Glucose 255 H 250 H Estimat Average Glucose Hemoglobin A1c Lactate Calcium Phosphorus Magnesium Ferritin Total Bilirubin AST ALT Alkaline Phosphatase Lactate Dehydrogenase Total Creatine Kinase Troponin I C-Reactive Protein Total Protein Albumin Globulin Albumin/Globulin Ratio Procalcitonin TSH Free T4 Urine Color Urine Appearance Urine pH Ur Specific [place] Urine Protein Urine Glucose (UA) Urine Ketones Urine Blood Urine Nitrite Urine Bilirubin Urine Urobilinogen Ur Leukocyte Esterase Urine WBC (Auto) Urine RBC (Auto) U Hyaline Cast (Auto) U Epithel Cells (Auto) Urine Bacteria (Auto) Uric Acid Crystals Granular Casts Urine Mucus Nasal Screen MRSA (PCR) COVID-19 Eval Order Influ A Molecular Assay Influ B Molecular Assay SARS-CoV-2, RNA, NAAT Blood Type Antibody Screen 04/11/20 04/11/20 04/11/20 03:15 04:03 06:05 WBC RBC Hgb POC Hgb 11.9 L Hct POC Hct 35 L MCV MCH MCHC RDW Std Deviation RDW Coeff of Julia Plt Count MPV Immature Gran % (Auto) Neut % (Auto) Lymph % (Auto) [place] % (Auto) Eos % (Auto) Baso % (Auto) Neut # (Auto) Lymph # (Auto) [place] # (Auto) Eos # (Auto) Baso # (Auto) Immature Gran # (Auto) PT INR APTT PTT Ratio D-Dimer Sample Site Art Line POC pH 7.44 POC pCO2 33 L POC pO2 66 L POC HCO3 22 POC Total CO2 23 L POC Base Excess -2.0 ABG pH (Temp Correct) 7.433 ABG pCO2 (Temp Corrct 34 L POC ABG pO2 at Pt Temp 67 POC ABG O2 Sat 94.0 Charlie Test NA O2 Delivery Device Ventilator POC O2 Rate 26 Minute Ventilation 7.8 POC FiO2 50 Tidal Volume 300 PEEP 6 POC Sodium 138 Sodium POC Potassium 3.5 Potassium Chloride Carbon Dioxide Anion Gap BUN Creatinine Est Cr Clr Drug Dosing Est GFR ( Amer) Est GFR (Non-Af Amer) BUN/Creatinine Ratio Glucose POC Glucose 123 H Estimat Average Glucose Hemoglobin A1c Lactate Calcium Phosphorus Magnesium Ferritin Total Bilirubin AST ALT Alkaline Phosphatase Lactate Dehydrogenase Total Creatine Kinase Troponin I C-Reactive Protein Total Protein Albumin Globulin Albumin/Globulin Ratio Procalcitonin TSH Free T4 Urine Color Yellow Urine Appearance Clear Urine pH 5.0 Ur Specific [place] 1.022 Urine Protein Negative Urine Glucose (UA) Negative Urine Ketones Negative Urine Blood Trace H Urine Nitrite Negative Urine Bilirubin Negative Urine Urobilinogen Negative Ur Leukocyte Esterase Negative Urine WBC (Auto) 1-5 Urine RBC (Auto) 5-10 H U Hyaline Cast (Auto) 5-10 H U Epithel Cells (Auto) >30 H Urine Bacteria (Auto) 1+ H Uric Acid Crystals Present A Granular Casts >30 H Urine Mucus Present A Nasal Screen MRSA (PCR) COVID-19 Eval Order Influ A Molecular Assay Influ B Molecular Assay SARS-CoV-2, RNA, NAAT Blood Type Antibody Screen 04/11/20 04/11/20 04/11/20 07:08 07:08 07:08 WBC 4.09 L RBC 4.04 L Hgb 11.8 L POC Hgb Hct 34.7 L POC Hct MCV 85.9 MCH 29.2 MCHC 34.0 RDW Std Deviation 40.5 RDW Coeff of Julia 12.9 Plt Count 174 MPV 8.9 Immature Gran % (Auto) 0.2 Neut % (Auto) 79.5 Lymph % (Auto) 12.2 [place] % (Auto) 8.1 Eos % (Auto) 0.0 Baso % (Auto) 0.0 Neut # (Auto) 3.25 Lymph # (Auto) 0.50 L [place] # (Auto) 0.33 Eos # (Auto) 0.00 Baso # (Auto) 0.00 Immature Gran # (Auto) 0.01 PT INR APTT 38.7 H PTT Ratio 1.4 D-Dimer Sample Site POC pH POC pCO2 POC pO2 POC HCO3 POC Total CO2 POC Base Excess ABG pH (Temp Correct) ABG pCO2 (Temp Corrct POC ABG pO2 at Pt Temp POC ABG O2 Sat Charlie Test O2 Delivery Device POC O2 Rate Minute Ventilation POC FiO2 Tidal Volume PEEP POC Sodium Sodium 137 POC Potassium Potassium 3.5 D Chloride 107 Carbon Dioxide 25 Anion Gap 5.0 BUN 14 Creatinine 0.57 L D Est Cr Clr Drug Dosing 89.5 Est GFR ( Amer) 116.8 Est GFR (Non-Af Amer) 100.8 BUN/Creatinine Ratio 25.3 H Glucose 111 H POC Glucose Estimat Average Glucose Hemoglobin A1c Lactate Calcium 7.3 L Phosphorus 2.8 Magnesium 1.7 L Ferritin Total Bilirubin AST ALT Alkaline Phosphatase Lactate Dehydrogenase Total Creatine Kinase Troponin I 0.083 H* C-Reactive Protein Total Protein Albumin Globulin Albumin/Globulin Ratio Procalcitonin TSH Free T4 Urine Color Urine Appearance Urine pH Ur Specific [place] Urine Protein Urine Glucose (UA) Urine Ketones Urine Blood Urine Nitrite Urine Bilirubin Urine Urobilinogen Ur Leukocyte Esterase Urine WBC (Auto) Urine RBC (Auto) U Hyaline Cast (Auto) U Epithel Cells (Auto) Urine Bacteria (Auto) Uric Acid Crystals Granular Casts Urine Mucus Nasal Screen MRSA (PCR) COVID-19 Eval Order Influ A Molecular Assay Influ B Molecular Assay SARS-CoV-2, RNA, NAAT Blood Type Antibody Screen 04/11/20 04/11/20 07:08 12:34 WBC RBC Hgb POC Hgb Hct POC Hct MCV MCH MCHC RDW Std Deviation RDW Coeff of Julia Plt Count MPV Immature Gran % (Auto) Neut % (Auto) Lymph % (Auto) [place] % (Auto) Eos % (Auto) Baso % (Auto) Neut # (Auto) Lymph # (Auto) [place] # (Auto) Eos # (Auto) Baso # (Auto) Immature Gran # (Auto) PT INR APTT PTT Ratio D-Dimer Sample Site POC pH POC pCO2 POC pO2 POC HCO3 POC Total CO2 POC Base Excess ABG pH (Temp Correct) ABG pCO2 (Temp Corrct POC ABG pO2 at Pt Temp POC ABG O2 Sat Charlie Test O2 Delivery Device POC O2 Rate Minute Ventilation POC FiO2 Tidal Volume PEEP POC Sodium Sodium POC Potassium Potassium Chloride Carbon Dioxide Anion Gap BUN Creatinine Est Cr Clr Drug Dosing Est GFR ( Amer) Est GFR (Non-Af Amer) BUN/Creatinine Ratio Glucose POC Glucose 87 Estimat Average Glucose 123 Hemoglobin A1c 5.9 H Lactate Calcium Phosphorus Magnesium Ferritin Total Bilirubin AST ALT Alkaline Phosphatase Lactate Dehydrogenase Total Creatine Kinase Troponin I C-Reactive Protein Total Protein Albumin Globulin Albumin/Globulin Ratio Procalcitonin TSH Free T4 Urine Color Urine Appearance Urine pH Ur Specific [place] Urine Protein Urine Glucose (UA) Urine Ketones Urine Blood Urine Nitrite Urine Bilirubin Urine Urobilinogen Ur Leukocyte Esterase Urine WBC (Auto) Urine RBC (Auto) U Hyaline Cast (Auto) U Epithel Cells (Auto) Urine Bacteria (Auto) Uric Acid Crystals Granular Casts Urine Mucus Nasal Screen MRSA (PCR) COVID-19 Eval Order Influ A Molecular Assay Influ B Molecular Assay SARS-CoV-2, RNA, NAAT Blood Type Antibody Screen Medications Administered Current Inpatient Medications Dextrose (Dextrose 50% 50 Ml Syringe) 25 - 50 ml IV UD PRN; Protocol PRN Reason: Hypoglycemia Protocol Stop: 05/11/20 01:25 Fentanyl Citrate (Fentanyl Bolus From Bag) 50 mcg IV Q60M PRN PRN Reason: Pain or Agitation Stop: 04/24/20 19:41 Last Admin: 04/10/20 20:35 Dose: 50 mcg Documented by: Glucagon (Glucagon For Inj 1 Mg Vial) 1 mg SQ UD PRN; Protocol PRN Reason: Hypoglycemia Protocol Stop: 05/11/20 01:25 Glucose (Glucose 10 Tabs/Tube) 4 - 8 tabs PO UD PRN; Protocol PRN Reason: Hypoglycemia Protocol Stop: 05/11/20 01:25 Glucose (Glucose 40% Gel 15 Gm Tube) 15 - 30 gm PO UD PRN; Protocol PRN Reason: Hypoglycemia Protocol Stop: 05/11/20 01:25 Norepinephrine Bitartrate (Levophed/D5w) 8 mg in 508 mls @ 13.411 mls/hr IV .Q24H NANDINI; Protocol Stop: 05/10/20 19:14 Last Titration: 04/11/20 03:00 Dose: 0 mcg/kg/min, 0 mls/hr Documented by: Midazolam HCl (Versed) 125 mg in 250 mls @ 12 mls/hr IV .[id number] NANDINI; Protocol Stop: 05/10/20 19:44 Last Titration: 04/10/20 22:00 Dose: 6 mg/hr, 12 mls/hr Documented by: Fentanyl Citrate (Fentanyl Drip) 1,250 mcg in 250 mls @ 20 mls/hr IV .[id number] NANDINI; Protocol Stop: 04/24/20 19:44 Last Admin: 04/11/20 09:48 Dose: 100 mcg/hr, 20 mls/hr Documented by: Vasopressin 20 units/ Sodium (Chloride) 101 mls @ 0 mls/hr IV .Q0M NANDINI Stop: 05/10/20 20:59 Last Infusion: 04/11/20 02:11 Dose: 0 unit/min, 0 mls/hr Documented by: Cisatracurium Besylate 40 mg/ (Sodium Chloride) 100 mls @ 13.5 mls/hr IV .[id number] [facility]; Protocol Stop: 05/10/20 20:59 Last Titration: 04/11/20 13:01 Dose: Infused Documented by: Acetaminophen (Ofirmev) 1,000 mg in 100 mls @ 400 mls/hr IV Q8H PRN PRN Reason: Fever Stop: 04/13/20 21:43 Famotidine 20 mg/ Syringe 5 mls @ 2.5 mls/min IV BID [facility] Stop: 05/11/20 08:59 Last Admin: 04/11/20 09:44 Dose: 2.5 mls/min Documented by: Heparin Sodium/Dextrose (Heparin Sodium/Dextrose) 25,000 units in 500 mls @ 14 mls/hr IV .Q24H [facility]; Protocol Stop: 05/11/20 00:59 Last Titration: 04/11/20 09:44 Dose: 700 units/hr, 14 mls/hr Documented by: Piperacillin Sod/Tazobactam (Sod 3.375 gm/ Dextrose) 115 mls @ 28.75 mls/hr IV Q8H [facility]; Protocol Stop: 04/12/20 03:59 Last Admin: 04/11/20 13:16 Dose: 28.8 mls/hr Documented by: Levothyroxine Sodium 37.5 mcg/ (Syringe) 1.875 mls @ 2 mls/min IV Q3D@0900 [facility]; Protocol Stop: 05/14/20 08:59 Insulin Aspart (Insulin Aspart 100 Units/Ml 3 Ml Pen) 0 units SC Q4 [facility] Stop: 05/11/20 07:59 Last Admin: 04/11/20 13:02 Dose: Not Given Documented by: Midazolam HCl (Midazolam Bolus From Bag) 2 mg IV Q60M PRN PRN Reason: Sedation Stop: 05/10/20 19:41 Miscellaneous (Carbohydrates For Hypoglycemia ) 15 - 30 gm PO UD PRN PRN Reason: Hypoglycemia Protocol Stop: 05/11/20 01:25 Miscellaneous Information (Piperacill/Tazobac Consult Active) 1 ea N/A UD PRN PRN Reason: Consult Stop: 05/10/20 22:55 Miscellaneous Information (Pharmacy Glycemic Mgmt Consult) 1 ea N/A UD PRN; Protocol PRN Reason: Consult Stop: 05/11/20 01:38 PG Care Time/CCT Total # of Minutes Spent Total Time Spent with Patient: Total time spent is greater than 50% in coordination of care (as documented) at patient's floor/unit and/or counseling patient: Coding Level of Care Code 81849 Subseq Hosp Care Lvl 3 Diagnoses Acute respiratory failure with hypoxia J96.01 Pneumonia due to COVID-19 virus U07.1; J12.82 Pulmonary embolism associated with COVID-19 U07.1; I26.99 ARDS (adult respiratory distress syndrome) J80 Cardiogenic shock R57.0 Hypothyroidism E03.9 Hyperlipidemia E78.5 Depression F32.9
[2020-04-11 19:10] LABS: Partial Thromboplastin Ratio 1.4; Partial Thromboplastin Time 38.6 Seconds (21.0-31.0)
[2020-04-11] MEDS ORDERED: FUROSEMIDE 20 MG in SYRINGE 0 ML IV ONE (19:30)
[2020-04-11] MEDS: ACETAMINOPHEN 1,000 MG/100 ML VIAL IV PRN (19:41)
[2020-04-11] MEDS: MIDAZOLAM HCL 125 MG/250 ML BAG IV SCH (20:18)
[2020-04-12] MEDS ORDERED: REMDESIVIR 100 MG in SODIUM CHLORIDE 0.9% 230 ML IV SCH
[2020-04-12] MEDS: INSULIN ASPART 100 UNITS/ML 3 ML PEN SC SCH ×5 (00:05→23:49)
[2020-04-12 02:24] LABS: Basophils # (auto) 0.01 K/uL (0-0.2); Basophils % (auto) 0.3 %; Eosinophils # (auto) 0.01 K/uL (0-0.5); Eosinophils % (auto) 0.3 %; Hematocrit (blood only) 33.4 % (37-47); Lymphocytes # (auto) 1.11 K/uL (1.2-3.4); Lymphocytes % (auto) 28.8 %; Mean Corpuscular Hemoglobin 28.8 pg (25-34); Mean Corpuscular Hgb Conc 32.9 g/dL (32-36); Mean Corpuscular Volume 87.4 fL (80-100); Mean Platelet Volume 9.3 fL (7.4-10.4); Monocytes % (auto) 5.2 %; Neutrophils # (auto) 2.53 K/uL (1.4-6.5); Neutrophils % (auto) 65.4 %; Platelet Count 168 K/uL (130-400); RDW Coefficient of Variation 13.2 % (11.5-14.5); RDW Standard Deviation 42.4 fL (36.4-46.3); Red Blood Count 3.82 M/uL (4.2-5.4); White Blood Count 3.86 K/uL (4.8-10.8)
[2020-04-12 02:29] LABS: BUN Creatinine Ratio 28.2 (10-20); Calcium 6.8 mg/dl (8.5-10.1); Creatinine Clr Calc Pharmacy 94.4 ml/min; Est GFR (African American) 118.9; Est GFR (Non-African American) 102.6; Magnesium 1.8 mg/dl (1.8-2.4); Phosphorus 2.5 mg/dl (2.5-4.9); Potassium 3.1 mmol/L (3.5-5.1)
[2020-04-12 02:32] LABS: Partial Thromboplastin Ratio 1.6
[2020-04-12 02:35] LABS: Partial Thromboplastin Time 45.3 Seconds (21.0-31.0)
[2020-04-12] MEDS: POTASSIUM CHLORIDE / WTR 20 MEQ/100 ML PLCT IV SCH ×3 (04:07→08:18)
[2020-04-12] MEDS: ACETAMINOPHEN 1,000 MG/100 ML VIAL IV PRN (04:07)
[2020-04-12] MEDS: MAGNESIUM SULFATE / D5W 1 GM/100 ML BAG IV SCH ×2 (04:21→06:32)
[2020-04-12] MEDS: NOREPINEPHRINE/D5W 8 MG/508 ML BAG IV SCH (04:46)
[2020-04-12 05:22] LABS: iSTAT Arterial Blood Gas HCO3 25 meg/L (19-24); iSTAT Arterial Blood Gas pCO2 38 mmHg (35-46); iSTAT Arterial Blood Gas pH 7.42 (7.35-7.45); iSTAT Arterial Blood Gas pO2 77 mmHg (80-95); iSTAT Carbon Dioxide 26 mmol/L (24-31); iSTAT FiO2 40 %; iSTAT Site Art Line
--- NOTE | 2020-04-12 07:34 | Hospitalist Progress Note ---
Date of Service April 12, 2020 Assessment & Plan (1) Acute respiratory failure with hypoxia: Secondary to ARDS, suspected PE, COVID-19 pneumonia, possible bacterial pneumonia. intubated and proned for the first 24 hours ventilator management per ICU did well with spontaneous breathing trial 04/12, extubated to 3L NC in the afternoon (2) Pneumonia due to COVID-19 virus: Dexamethasone 6mg IV daily x 10 days Convalescent plasma Remdesivir 5 day IV course extubated and breathing well on 3L (3) Pulmonary embolism associated with COVID-19: Suspected based on sudden onset shock in the ER with acute respiratory failure in the setting of chest pain. Unstable to go through CT for PE. Improved hemodynamics and hypoxia after tPA given continue heparin drip (4) ARDS (adult respiratory distress syndrome): ICU management on ventilator. Difficult to rule out bacterial pneumonia with positive procalcitonin. Antibiotics per ICU with Zosyn and Vancomycin. Follow up blood cultures much improved, breathing on 3L (5) Cardiogenic shock: In setting of suspected PE. Improved with IV fluid resuscitation, tPA and started on Levophed in ER. maintain MAP of 65 shock resolved, no longer on pressor support (6) Hypothyroidism: Continue levothyroxine once she is able to eat and drink. (7) Hyperlipidemia: Restart atorvastatin when able. (8) Depression: Restart sertraline when able to avoid withdrawal Admission and Anticipated Discharge Date Admission Date: April 10, 2020 Subjective patient intubated this morning, stable, did well with breathing trial extubated around 4pm, stable on 3L NC labs reviewed Review of Systems Review of Systems: Unobtainable due to reduced consciousness Physical Exam Constitutional: well developed and well nourished; no acute distress Neck: trachea midline, no thyromegaly Respiratory: normal respiratory effort; no respiratory distress and no labored breathing Auscultation: lungs clear to auscultation bilaterally Cardiovascular: RRR, no murmur, no edema Gastrointestinal (Abdomen): normal bowel sounds, soft, nontender, no hepatosplenomegaly Musculoskeletal: Head/Neck/Chest: normocephalic and head atraumatic Extremities: extremities normal to inspection Skin: no rashes, warm and dry Neurologic: CN's II-XI intact bilaterally and awake; no focal motor deficits Results & Data Results & Data ([facility]) Vital Signs (Past 12 Hours) Vital Signs Temp Pulse Resp BP Pulse Ox 04/12/20 06:26 88 20 92 04/12/20 05:15 37.9 C H 75 20 101/60 92 04/12/20 05:02 38.0 C H 76 20 92/57 L 97 04/12/20 05:01 38.0 C H 73 20 97 04/12/20 05:00 38.0 C H 73 20 91/56 L 96 04/12/20 04:53 38.1 C H 79 20 94/61 L 94 04/12/20 04:45 38.2 C H 82 20 83/52 L 93 04/12/20 04:42 38.2 C H 80 20 84/52 L 93 04/12/20 04:32 83 20 92 04/12/20 04:31 38.3 C H 82 20 93 04/12/20 04:30 38.4 C H 84 20 84/53 L 93 04/12/20 04:15 38.4 C H 84 20 88/54 L 91 04/12/20 04:14 38.4 C H 86 20 86/54 L 90 04/12/20 04:01 38.4 C H 84 20 91 04/12/20 04:00 38.4 C H 86 20 95/59 L 92 04/12/20 03:45 38.3 C H 85 20 84/55 L 92 04/12/20 03:31 38.3 C H 20 91 04/12/20 03:30 38.3 C H 95 H 20 108/53 L 92 04/12/20 03:15 38.2 C H 91 H 20 107/62 92 04/12/20 03:01 38.2 C H 86 20 91 04/12/20 03:00 38.2 C H 90 20 99/54 L 91 04/12/20 02:45 38.1 C H 87 20 92/57 L 90 04/12/20 02:31 38.0 C H 89 20 92 04/12/20 02:30 38.0 C H 87 20 109/58 L 91 04/12/20 02:15 37.9 C H 85 20 95/56 L 91 04/12/20 02:01 37.8 C H 98 H 20 99 04/12/20 02:00 37.8 C H 95 H 20 100/66 97 04/12/20 01:46 37.7 C H 85 20 96 04/12/20 01:45 37.7 C H 85 20 94/59 L 96 04/12/20 01:31 37.7 C H 85 20 97 04/12/20 01:30 37.7 C H 84 20 102/62 97 04/12/20 01:15 37.7 C H 84 20 105/60 96 04/12/20 01:01 37.7 C H 80 20 96 04/12/20 01:00 37.7 C H 82 20 94/56 L 96 04/12/20 00:45 37.7 C H 87 20 102/55 L 97 04/12/20 00:31 37.6 C H 83 20 96 04/12/20 00:30 37.6 C H 81 20 103/63 97 04/12/20 00:15 37.5 C 79 20 97/59 L 96 04/12/20 00:10 37.5 C 81 20 89/60 L 94 04/12/20 00:01 37.5 C 78 20 95 04/12/20 00:00 37.5 C 80 20 95/54 L 96 04/11/20 23:45 36.7 C 82 20 101/59 L 94 04/11/20 23:31 37.2 C 87 20 100 04/11/20 23:30 37.2 C 88 20 113/69 100 04/11/20 23:15 36.5 C 83 20 104/59 L 97 04/11/20 23:01 37.0 C 84 20 97 04/11/20 23:00 37.0 C 83 20 102/62 97 04/11/20 22:50 37.0 C 81 20 102/59 L 97 04/11/20 22:45 36.9 C 83 20 98/58 L 97 04/11/20 22:31 37.5 C 83 20 97 04/11/20 22:30 37.5 C 82 20 107/60 97 04/11/20 22:15 37.6 C H 85 20 113/68 97 04/11/20 22:01 37.6 C H 86 20 97 04/11/20 22:00 37.6 C H 86 20 111/65 97 04/11/20 21:45 37.7 C H 87 20 114/68 97 04/11/20 21:31 37.8 C H 88 20 97 04/11/20 21:30 37.8 C H 88 20 113/68 97 04/11/20 21:15 37.8 C H 90 20 112/68 97 04/11/20 21:01 38.0 C H 89 20 97 04/11/20 21:00 38.0 C H 89 20 106/66 97 04/11/20 20:45 38.1 C H 91 H 20 112/73 97 04/11/20 20:31 38.2 C H 91 H 97 04/11/20 20:30 38.2 C H 92 H 112/72 97 04/11/20 20:15 38.3 C H 93 H 106/70 96 04/11/20 20:01 38.5 C H 92 H 96 04/11/20 20:00 38.5 C H 92 H 99/66 L 95 04/11/20 19:50 95 H 20 95 04/11/20 19:46 38.6 C H 99 H 104/72 97 Laboratory Results Laboratory Results - last 24 hr 04/10/20 04/10/20 04/11/20 18:15 19:53 07:08 WBC RBC Hgb POC Hgb 14.3 11.9 L Hct POC Hct 42 35 L MCV MCH MCHC RDW Std Deviation RDW Coeff of Julia Plt Count MPV Immature Gran % (Auto) Neut % (Auto) Lymph % (Auto) [place] % (Auto) Eos % (Auto) Baso % (Auto) Neut # (Auto) Lymph # (Auto) [place] # (Auto) Eos # (Auto) Baso # (Auto) Immature Gran # (Auto) APTT 38.7 H PTT Ratio 1.4 Sample Site POC pH 7.22 L 7.16 L* POC pCO2 31 L 52 H POC pO2 64 L 74 L POC HCO3 13 L 19 POC Total CO2 14 L 20 L POC Base Excess -15.0 L -10.0 L POC ABG O2 Sat Charlie Test O2 Delivery Device POC O2 Rate Minute Ventilation POC FiO2 Tidal Volume PEEP POC Sodium 132 L 139 Sodium POC Potassium 2.9 L 4.3 Potassium Chloride Carbon Dioxide Anion Gap BUN Creatinine Est Cr Clr Drug Dosing Est GFR ( Amer) Est GFR (Non-Af Amer) BUN/Creatinine Ratio Glucose POC Glucose Estimat Average Glucose Hemoglobin A1c Calcium Phosphorus Magnesium Troponin I 04/11/20 04/11/20 04/11/20 07:08 07:08 12:34 WBC RBC Hgb POC Hgb Hct POC Hct MCV MCH MCHC RDW Std Deviation RDW Coeff of Julia Plt Count MPV Immature Gran % (Auto) Neut % (Auto) Lymph % (Auto) [place] % (Auto) Eos % (Auto) Baso % (Auto) Neut # (Auto) Lymph # (Auto) [place] # (Auto) Eos # (Auto) Baso # (Auto) Immature Gran # (Auto) APTT PTT Ratio Sample Site POC pH POC pCO2 POC pO2 POC HCO3 POC Total CO2 POC Base Excess POC ABG O2 Sat Charlie Test O2 Delivery Device POC O2 Rate Minute Ventilation POC FiO2 Tidal Volume PEEP POC Sodium Sodium 137 POC Potassium Potassium 3.5 D Chloride 107 Carbon Dioxide 25 Anion Gap 5.0 BUN 14 Creatinine 0.57 L D Est Cr Clr Drug Dosing 89.5 Est GFR ( Amer) 116.8 Est GFR (Non-Af Amer) 100.8 BUN/Creatinine Ratio 25.3 H Glucose 111 H POC Glucose 87 Estimat Average Glucose 123 Hemoglobin A1c 5.9 H Calcium 7.3 L Phosphorus 2.8 Magnesium 1.7 L Troponin I 0.083 H* 04/11/20 04/11/20 04/11/20 17:52 18:41 20:13 WBC RBC Hgb POC Hgb Hct POC Hct MCV MCH MCHC RDW Std Deviation RDW Coeff of Julia Plt Count MPV Immature Gran % (Auto) Neut % (Auto) Lymph % (Auto) [place] % (Auto) Eos % (Auto) Baso % (Auto) Neut # (Auto) Lymph # (Auto) [place] # (Auto) Eos # (Auto) Baso # (Auto) Immature Gran # (Auto) APTT 38.6 H PTT Ratio 1.4 Sample Site POC pH POC pCO2 POC pO2 POC HCO3 POC Total CO2 POC Base Excess POC ABG O2 Sat Charlie Test O2 Delivery Device POC O2 Rate Minute Ventilation POC FiO2 Tidal Volume PEEP POC Sodium Sodium POC Potassium Potassium Chloride Carbon Dioxide Anion Gap BUN Creatinine Est Cr Clr Drug Dosing Est GFR ( Amer) Est GFR (Non-Af Amer) BUN/Creatinine Ratio Glucose POC Glucose 88 96 Estimat Average Glucose Hemoglobin A1c Calcium Phosphorus Magnesium Troponin I 04/11/20 04/12/2021 23:47 01:35 01:35 WBC 3.86 L RBC 3.82 L Hgb 11.0 L POC Hgb Hct 33.4 L POC Hct MCV 87.4 MCH 28.8 MCHC 32.9 RDW Std Deviation 42.4 RDW Coeff of Julia 13.2 Plt Count 168 MPV 9.3 Immature Gran % (Auto) 0.0 Neut % (Auto) 65.4 Lymph % (Auto) 28.8 [place] % (Auto) 5.2 Eos % (Auto) 0.3 Baso % (Auto) 0.3 Neut # (Auto) 2.53 Lymph # (Auto) 1.11 L [place] # (Auto) 0.20 Eos # (Auto) 0.01 Baso # (Auto) 0.01 Immature Gran # (Auto) 0.00 APTT PTT Ratio Sample Site POC pH POC pCO2 POC pO2 POC HCO3 POC Total CO2 POC Base Excess POC ABG O2 Sat Charlie Test O2 Delivery Device POC O2 Rate Minute Ventilation POC FiO2 Tidal Volume PEEP POC Sodium Sodium 139 POC Potassium Potassium 3.1 L Chloride 108 H Carbon Dioxide 28 Anion Gap 3.0 BUN 15 Creatinine 0.54 L Est Cr Clr Drug Dosing 94.4 Est GFR ( Amer) 118.9 Est GFR (Non-Af Amer) 102.6 BUN/Creatinine Ratio 28.2 H Glucose 100 H POC Glucose 109 H Estimat Average Glucose Hemoglobin A1c Calcium 6.8 L Phosphorus 2.5 Magnesium 1.8 Troponin I 04/12/20 04/12/20 04/12/20 01:35 04:05 05:08 WBC RBC Hgb POC Hgb Hct POC Hct MCV MCH MCHC RDW Std Deviation RDW Coeff of Julia Plt Count MPV Immature Gran % (Auto) Neut % (Auto) Lymph % (Auto) [place] % (Auto) Eos % (Auto) Baso % (Auto) Neut # (Auto) Lymph # (Auto) [place] # (Auto) Eos # (Auto) Baso # (Auto) Immature Gran # (Auto) APTT 45.3 H* PTT Ratio 1.6 Sample Site Art Line POC pH 7.42 POC pCO2 38 POC pO2 77 L POC HCO3 25 H POC Total CO2 26 POC Base Excess 0.0 POC ABG O2 Sat 96.0 H Charlie Test NA O2 Delivery Device Ventilator POC O2 Rate 20 Minute Ventilation 6 POC FiO2 40 Tidal Volume 300 PEEP 14 POC Sodium Sodium POC Potassium Potassium Chloride Carbon Dioxide Anion Gap BUN Creatinine Est Cr Clr Drug Dosing Est GFR ( Amer) Est GFR (Non-Af Amer) BUN/Creatinine Ratio Glucose POC Glucose 104 H Estimat Average Glucose Hemoglobin A1c Calcium Phosphorus Magnesium Troponin I Medications Administered Current Inpatient Medications Dextrose (Dextrose 50% 50 Ml Syringe) 25 - 50 ml IV UD PRN; Protocol PRN Reason: Hypoglycemia Protocol Stop: 05/11/20 01:25 Fentanyl Citrate (Fentanyl Bolus From Bag) 50 mcg IV Q60M PRN PRN Reason: Pain or Agitation Stop: 04/24/20 19:41 Last Admin: 04/10/20 20:35 Dose: 50 mcg Documented by: Glucagon (Glucagon For Inj 1 Mg Vial) 1 mg SQ UD PRN; Protocol PRN Reason: Hypoglycemia Protocol Stop: 05/11/20 01:25 Glucose (Glucose 10 Tabs/Tube) 4 - 8 tabs PO UD PRN; Protocol PRN Reason: Hypoglycemia Protocol Stop: 05/11/20 01:25 Glucose (Glucose 40% Gel 15 Gm Tube) 15 - 30 gm PO UD PRN; Protocol PRN Reason: Hypoglycemia Protocol Stop: 05/11/20 01:25 Norepinephrine Bitartrate (Levophed/D5w) 8 mg in 508 mls @ 13.411 mls/hr IV .Q24H NANDINI; Protocol Stop: 05/10/20 19:14 Last Titration: 04/12/20 06:42 Dose: 0.04 mcg/kg/min, 10.7 mls/hr Documented by: Midazolam HCl (Versed) 125 mg in 250 mls @ 12 mls/hr IV .[id number] [facility]; Protocol Stop: 05/10/20 19:44 Last Admin: 04/11/20 20:18 Dose: 6 mg/hr, 12 mls/hr Documented by: Fentanyl Citrate (Fentanyl Drip) 1,250 mcg in 250 mls @ 20 mls/hr IV .[id number] [facility]; Protocol Stop: 04/24/20 19:44 Last Titration: 04/12/20 04:32 Dose: 100 mcg/hr, 20 mls/hr Documented by: Vasopressin 20 units/ Sodium (Chloride) 101 mls @ 0 mls/hr IV .Q0M NANDINI Stop: 05/10/20 20:59 Last Infusion: 04/11/20 02:11 Dose: 0 unit/min, 0 mls/hr Documented by: Cisatracurium Besylate 40 mg/ (Sodium Chloride) 100 mls @ 13.5 mls/hr IV .Q7H25M [facility]; Protocol Stop: 05/10/20 20:59 Last Admin: 04/11/20 21:00 Dose: Not Given Documented by: Acetaminophen (Ofirmev) 1,000 mg in 100 mls @ 400 mls/hr IV Q8H PRN PRN Reason: Fever Stop: 04/13/20 21:43 Last Infusion: 04/12/20 04:32 Dose: Infused Documented by: Famotidine 20 mg/ Syringe 5 mls @ 2.5 mls/min IV BID [facility] Stop: 05/11/20 08:59 Last Admin: 04/11/20 20:59 Dose: 2.5 mls/min Documented by: Heparin Sodium/Dextrose (Heparin Sodium/Dextrose) 25,000 units in 500 mls @ 16 mls/hr IV .Q24H [facility]; Protocol Stop: 05/11/20 00:59 Last Titration: 04/12/20 02:47 Dose: 800 units/hr, 16 mls/hr Documented by: Levothyroxine Sodium 37.5 mcg/ (Syringe) 1.875 mls @ 2 mls/min IV Q3D@0900 [facility]; Protocol Stop: 05/14/20 08:59 Dexamethasone 6 mg/ Syringe 1.5 mls @ 1 mls/min IV DAILY [facility] Stop: 04/22/20 08:59 Remdesivir 100 mg/ Sodium (Chloride) 250 mls @ 250 mls/hr IV Q24H [facility]; Protocol Stop: 04/14/20 20:59 Potassium Chloride (K Anton / Wtr) 20 meq in 100 mls @ 50 mls/hr IV Q2H [facility] Stop: 04/12/20 08:52 Last Admin: 04/12/20 06:05 Dose: 50 mls/hr Documented by: Insulin Aspart (Insulin Aspart 100 Units/Ml 3 Ml Pen) 0 units SC Q4 [facility] Stop: 05/11/20 07:59 Last Admin: 04/12/20 04:15 Dose: Not Given Documented by: Midazolam HCl (Midazolam Bolus From Bag) 2 mg IV Q60M PRN PRN Reason: Sedation Stop: 05/10/20 19:41 Miscellaneous (Carbohydrates For Hypoglycemia ) 15 - 30 gm PO UD PRN PRN Reason: Hypoglycemia Protocol Stop: 05/11/20 01:25 Miscellaneous Information (Piperacill/Tazobac Consult Active) 1 ea N/A UD PRN PRN Reason: Consult Stop: 05/10/20 22:55 Miscellaneous Information (Pharmacy Glycemic Mgmt Consult) 1 ea N/A UD PRN; Protocol PRN Reason: Consult Stop: 05/11/20 01:38 Sodium Chloride (Sodium Chloride 0.9% 10ml Flush) 30 ml IV Q24H [facility] Stop: 04/14/20 20:01 PG Care Time/CCT Total # of Minutes Spent Total Time Spent with Patient: Total time spent is greater than 50% in coordination of care (as documented) at patient's floor/unit and/or counseling patient: Coding Level of Care Code 87585 Subseq Hosp Care Lvl 3 Diagnoses Acute respiratory failure with hypoxia J96.01 Pneumonia due to COVID-19 virus U07.1; J12.82 Pulmonary embolism associated with COVID-19 U07.1; I26.99 ARDS (adult respiratory distress syndrome) J80 Cardiogenic shock R57.0 Hypothyroidism E03.9 Hyperlipidemia E78.5 Depression F32.9
[2020-04-12] MEDS: FAMOTIDINE 20 MG in SYRINGE 3 ML IV SCH ×2 (08:17→19:59)
[2020-04-12] MEDS: HEPARIN SODIUM/DEXTROSE 25,000 UNITS/500 ML BAG IV SCH (08:18)
[2020-04-12] MEDS: dexAMETHasone 6 MG in SYRINGE 0 ML IV SCH (08:18)
--- NOTE | 2020-04-12 08:43 | XRay Report ---
XR chest 1V portable CLINICAL HISTORY: Respiratory failure. COMPARISON STUDY: Chest radiograph April 11, 2020. FINDINGS: Tip of nasogastric tube is within the gastric antrum. Tip of endotracheal tube is at the or igin of the right mainstem bronchus. Cardiomediastinal silhouette is stable. There is persistent niko hilar and bibasilar consolidation. Interstitial thickening persists. Possible small air-fluid level w ithin the right midlung is noted. No pneumothorax is identified. There are small bilateral pleural ef fusions. Incidental note is made of old, healed bilateral clavicular fractures. IMPRESSION: 1. Tip of endotracheal tube at the origin the right mainstem bronchus. The tube should with withdrawn 2 cm. Discussed with Jayden Adames at time of dictation. 2. Persistent extensive perihilar and bibasilar consolidation within interstitial thickening. This fa vors an infectious process with superimposed pulmonary edema. 3. Small bilateral pleural effusions. 4. Possible small air-fluid level within the right midlung which can be assessed on subsequent chest radiograph. ACT 112: Negative or not required by law. Electronically signed by: Peter Lewis M.D. 04/12/2020 8:42 AM
[2020-04-12] MEDS: fentaNYL DRIP 1,250 MCG/250 ML BAG IV SCH ×2 (09:33→16:21)
[2020-04-12 10:23] LABS: Partial Thromboplastin Ratio 1.7
--- NOTE | 2020-04-12 12:09 | Critical Care Progress Note ---
Date of Service April 12, 2020 Assessment & Plan (1) Admitted to intensive care unit: Reason Critically Ill: 59-year-old female with positive COVID-19, and suspected pulmonary embolism requiring intubation, thrombolysis therapy, vasopressors and paralyzed and proned Neuro - Sedation: Versed and fentanyl Cardiac - Cardiogenic shockresolved -Received TPA in ED, heparin drip to follow -Follow-up echo in a.m. Respiratory -improved: Extubation today Acute hypoxic respiratory failurepatient with COVID-19 pneumonia and diffuse bilateral opacities on chest x-ray. Also suspect pulmonary embolism given patient's rapid decompensation along with cardiogenic shock. -Started on remdesivir and dexamethasone as patient only within 3 days of symptoms -Started on empiric broad-spectrum antibiotics, see ID below -Continuous monitoring on pulse ox GI - n.p.o. IV famotidine RENAL/LYTES - Creatinine within normal limits, monitor with routine CBCs and replete electrolytes as indicated - Foleystrict I's and O ENDO - No history of diabetes, ICU hyperglycemic protocol Hypothyroidismcontinue Synthroid HEME - H&H stable ID - COVID-19 PCR positive, influenza a and B negative Procalcitonin elevated but lactate within normal limits and currently afebrile No growth to date in antibiotics, discontinued today LINES/IV ACCESS - CVC, A-line, Krishnan, OG tube, ET tube DVT PROPHYLAXIS - SCDs, heparin drip CODE STATUSper discussion with patient's , patient is to remain full code at this time. I have personally spent 45 minutes of critical care time in the direct management of this patient. This is a life/limb threatening event. This includes time spent evaluating patient, direct bedside care, chart review, placing orders, interpretation of diagnostic studies, discussion with consultants, patient, and family members, as well as other required patient management activities. This time is exclusive of all separately billable procedures, and teaching time and separate from and in addition to any other critical care service time. (2) Acute respiratory failure with hypoxia: (3) Cardiogenic shock: (4) Pulmonary embolism associated with COVID-19: (5) Pneumonia due to COVID-19 virus: (6) Hypothyroidism: (7) Hyperlipidemia: (8) Anxiety: (9) Depression: (10) ARDS (adult respiratory distress syndrome): Admission and Anticipated Discharge Date Admission Date: April 10, 2020 Subjective No overnight events Review of Systems Review of Systems: Unobtainable due to endotracheal tube Physical Exam Physical Exam: General: Alert. Glascow Coma Scale: Eyes: 4, Verbal 1T, Motor 6, Total 11 T Skin: Warm, dry, Head: Atraumatic Ears, nose, mouth and throat: airway patent Cardiovascular: Normal peripheral perfusion Respiratory: no respiratory distress Gastrointestinal: Non distended Musculoskeletal: No deformity Results & Data Results & Data ([facility]) Vital Signs (Past 12 Hours) Vital Signs Temp Pulse Resp BP Pulse Ox 04/12/20 11:15 37.9 C H 85 112/74 93 04/12/20 11:01 37.9 C H 82 92 04/12/20 11:00 37.9 C H 83 106/74 92 04/12/20 10:45 37.9 C H 84 112/69 91 04/12/20 10:30 37.8 C H 86 112/74 92 04/12/20 10:15 37.8 C H 88 116/76 92 04/12/20 10:01 37.8 C H 85 92 04/12/20 10:00 37.8 C H 82 95/65 L 92 04/12/20 09:45 37.8 C H 84 103/68 91 04/12/20 09:30 37.8 C H 87 109/68 93 04/12/20 09:15 37.8 C H 84 111/66 94 04/12/20 09:01 37.7 C H 84 94 04/12/20 09:00 37.7 C H 85 109/75 94 04/12/20 08:46 37.7 C H 82 94 04/12/20 08:45 37.7 C H 82 100/63 93 04/12/20 08:30 37.7 C H 83 100/65 93 04/12/20 08:15 36.3 C L 89 106/79 90 04/12/20 08:01 37.7 C H 86 91 04/12/20 08:00 37.7 C H 87 110/70 90 04/12/20 07:45 37.7 C H 86 109/71 91 04/12/20 07:30 37.6 C H 87 114/72 92 04/12/20 07:15 37.6 C H 88 114/71 93 04/12/20 07:01 37.6 C H 86 92 04/12/20 07:00 37.6 C H 85 111/67 92 04/12/20 06:45 37.6 C H 84 102/65 91 04/12/20 06:30 37.7 C H 91 H 108/70 90 04/12/20 06:26 88 20 92 04/12/20 06:15 37.7 C H 91 H 120/78 92 04/12/20 06:01 37.7 C H 87 92 04/12/20 06:00 37.7 C H 86 122/76 92 04/12/20 05:15 37.9 C H 75 20 101/60 92 04/12/20 05:02 38.0 C H 76 20 92/57 L 97 04/12/20 05:01 38.0 C H 73 20 97 04/12/20 05:00 38.0 C H 73 20 91/56 L 96 04/12/20 04:53 38.1 C H 79 20 94/61 L 94 04/12/20 04:45 38.2 C H 82 20 83/52 L 93 04/12/20 04:42 38.2 C H 80 20 84/52 L 93 04/12/20 04:32 83 20 92 04/12/20 04:31 38.3 C H 82 20 93 04/12/20 04:30 38.4 C H 84 20 84/53 L 93 04/12/20 04:15 38.4 C H 84 20 88/54 L 91 04/12/20 04:14 38.4 C H 86 20 86/54 L 90 04/12/20 04:01 38.4 C H 84 20 91 04/12/20 04:00 38.4 C H 86 20 95/59 L 92 04/12/20 03:45 38.3 C H 85 20 84/55 L 92 04/12/20 03:31 38.3 C H 20 91 04/12/20 03:30 38.3 C H 95 H 20 108/53 L 92 04/12/20 03:15 38.2 C H 91 H 20 107/62 92 04/12/20 03:01 38.2 C H 86 20 91 04/12/20 03:00 38.2 C H 90 20 99/54 L 91 04/12/20 02:45 38.1 C H 87 20 92/57 L 90 04/12/20 02:31 38.0 C H 89 20 92 04/12/20 02:30 38.0 C H 87 20 109/58 L 91 04/12/20 02:15 37.9 C H 85 20 95/56 L 91 04/12/20 02:01 37.8 C H 98 H 20 99 04/12/20 02:00 37.8 C H 95 H 20 100/66 97 04/12/20 01:46 37.7 C H 85 20 96 04/12/20 01:45 37.7 C H 85 20 94/59 L 96 04/12/20 01:31 37.7 C H 85 20 97 04/12/20 01:30 37.7 C H 84 20 102/62 97 04/12/20 01:15 37.7 C H 84 20 105/60 96 04/12/20 01:01 37.7 C H 80 20 96 04/12/20 01:00 37.7 C H 82 20 94/56 L 96 04/12/20 00:45 37.7 C H 87 20 102/55 L 97 04/12/20 00:31 37.6 C H 83 20 96 04/12/20 00:30 37.6 C H 81 20 103/63 97 04/12/20 00:15 37.5 C 79 20 97/59 L 96 04/12/20 00:10 37.5 C 81 20 89/60 L 94 Laboratory Results 04/12/20 04/12/20 04/12/20 Range/Units 16:11 12:20 09:33 WBC (4.8-10.8) K/uL RBC (4.2-5.4) M/uL Hgb (12.0-16.0) g/dL Hct (37-47) % MCV (80-100) fL MCH (25-34) pg MCHC (32-36) g/dL RDW Std Deviation (36.4-46.3) fL RDW Coeff of Julia (11.5-14.5) % Plt Count (130-400) K/uL MPV (7.4-10.4) fL Immature Gran % (Auto) % Neut % (Auto) % Lymph % (Auto) % [place] % (Auto) % Eos % (Auto) % Baso % (Auto) % Neut # (Auto) (1.4-6.5) K/uL Lymph # (Auto) (1.2-3.4) K/uL [place] # (Auto) (0.11-0.59) K/uL Eos # (Auto) (0-0.5) K/uL Baso # (Auto) (0-0.2) K/uL Immature Gran # (Auto) (0.00-0.02) K/uL APTT 47.0 H* (21.0-31.0) Seconds PTT Ratio 1.7 Sample Site POC pH (7.35-7.45) POC pCO2 (35-46) mmHg POC pO2 (80-95) mmHg POC HCO3 (19-24) skye/L POC Total CO2 (24-31) mmol/L POC Base Excess (-9-1.8) skye/L POC ABG O2 Sat (90-95) % Charlie Test O2 Delivery Device POC O2 Rate Minute Ventilation POC FiO2 % Tidal Volume PEEP Sodium (136-145) mmol/L Potassium (3.5-5.1) mmol/L Chloride (98-107) mmol/L Carbon Dioxide (21-32) mmol/L Anion Gap (3-11) BUN (7-18) mg/dl Creatinine (0.6-1.2) mg/dl Est Cr Clr Drug Dosing ml/min Est GFR ( Amer) Est GFR (Non-Af Amer) BUN/Creatinine Ratio (10-20) Glucose (70-99) mg/dl POC Glucose 157 H (70-99) mg/dl POC Glucose (other) 158 H (70-99) mg/dl Calcium (8.5-10.1) mg/dl Phosphorus (2.5-4.9) mg/dl Magnesium (1.8-2.4) mg/dl 04/12/20 04/12/20 04/12/20 Range/Units 05:08 04:05 01:35 WBC (4.8-10.8) K/uL RBC (4.2-5.4) M/uL Hgb (12.0-16.0) g/dL Hct (37-47) % MCV (80-100) fL MCH (25-34) pg MCHC (32-36) g/dL RDW Std Deviation (36.4-46.3) fL RDW Coeff of Julia (11.5-14.5) % Plt Count (130-400) K/uL MPV (7.4-10.4) fL Immature Gran % (Auto) % Neut % (Auto) % Lymph % (Auto) % [place] % (Auto) % Eos % (Auto) % Baso % (Auto) % Neut # (Auto) (1.4-6.5) K/uL Lymph # (Auto) (1.2-3.4) K/uL Screven # (Auto) (0.11-0.59) K/uL Eos # (Auto) (0-0.5) K/uL Baso # (Auto) (0-0.2) K/uL Immature Gran # (Auto) (0.00-0.02) K/uL APTT 45.3 H* (21.0-31.0) Seconds PTT Ratio 1.6 Sample Site Art Line POC pH 7.42 (7.35-7.45) POC pCO2 38 (35-46) mmHg POC pO2 77 L (80-95) mmHg POC HCO3 25 H (19-24) skye/L POC Total CO2 26 (24-31) mmol/L POC Base Excess 0.0 (-9-1.8) skye/L POC ABG O2 Sat 96.0 H (90-95) % Charlie Test NA O2 Delivery Device Ventilator POC O2 Rate 20 Minute Ventilation 6 POC FiO2 40 % Tidal Volume 300 PEEP 14 Sodium (136-145) mmol/L Potassium (3.5-5.1) mmol/L Chloride (98-107) mmol/L Carbon Dioxide (21-32) mmol/L Anion Gap (3-11) BUN (7-18) mg/dl Creatinine (0.6-1.2) mg/dl Est Cr Clr Drug Dosing ml/min Est GFR ( Amer) Est GFR (Non-Af Amer) BUN/Creatinine Ratio (10-20) Glucose (70-99) mg/dl POC Glucose 104 H (70-99) mg/dl POC Glucose (other) (70-99) mg/dl Calcium (8.5-10.1) mg/dl Phosphorus (2.5-4.9) mg/dl Magnesium (1.8-2.4) mg/dl 04/12/20 04/12/20 04/11/20 Range/Units 01:35 01:35 23:47 WBC 3.86 L (4.8-10.8) K/uL RBC 3.82 L (4.2-5.4) M/uL Hgb 11.0 L (12.0-16.0) g/dL Hct 33.4 L (37-47) % MCV 87.4 (80-100) fL MCH 28.8 (25-34) pg MCHC 32.9 (32-36) g/dL RDW Std Deviation 42.4 (36.4-46.3) fL RDW Coeff of Julia 13.2 (11.5-14.5) % Plt Count 168 (130-400) K/uL MPV 9.3 (7.4-10.4) fL Immature Gran % (Auto) 0.0 % Neut % (Auto) 65.4 % Lymph % (Auto) 28.8 % Scre[place] % (Auto) 5.2 % Eos % (Auto) 0.3 % Baso % (Auto) 0.3 % Neut # (Auto) 2.53 (1.4-6.5) K/uL Lymph # (Auto) 1.11 L (1.2-3.4) K/uL Screven # (Auto) 0.20 (0.11-0.59) K/uL Eos # (Auto) 0.01 (0-0.5) K/uL Baso # (Auto) 0.01 (0-0.2) K/uL Immature Gran # (Auto) 0.00 (0.00-0.02) K/uL APTT (21.0-31.0) Seconds PTT Ratio Sample Site POC pH (7.35-7.45) POC pCO2 (35-46) mmHg POC pO2 (80-95) mmHg POC HCO3 (19-24) skye/L POC Total CO2 (24-31) mmol/L POC Base Excess (-9-1.8) skye/L POC ABG O2 Sat (90-95) % Charlie Test O2 Delivery Device POC O2 Rate Minute Ventilation POC FiO2 % Tidal Volume PEEP Sodium 139 (136-145) mmol/L Potassium 3.1 L (3.5-5.1) mmol/L Chloride 108 H (98-107) mmol/L Carbon Dioxide 28 (21-32) mmol/L Anion Gap 3.0 (3-11) BUN 15 (7-18) mg/dl Creatinine 0.54 L (0.6-1.2) mg/dl Est Cr Clr Drug Dosing 94.4 ml/min Est GFR ( Amer) 118.9 Est GFR (Non-Af Amer) 102.6 BUN/Creatinine Ratio 28.2 H (10-20) Glucose 100 H (70-99) mg/dl POC Glucose 109 H (70-99) mg/dl POC Glucose (other) (70-99) mg/dl Calcium 6.8 L (8.5-10.1) mg/dl Phosphorus 2.5 (2.5-4.9) mg/dl Magnesium 1.8 (1.8-2.4) mg/dl Coding Level of Care Code Critical Care 1st 30-74 mins Diagnoses Admitted to intensive care unit Z78.9 Acute respiratory failure with hypoxia J96.01 Cardiogenic shock R57.0 Pulmonary embolism associated with COVID-19 U07.1; I26.99 Pneumonia due to COVID-19 virus U07.1; J12.82 Hypothyroidism E03.9 Hyperlipidemia E78.5 Anxiety F41.9 Depression F32.9 ARDS (adult respiratory distress syndrome) J80
[2020-04-12] MEDS: CISATRACURIUM BESYLATE 40 MG in 0.9 % SODIUM CHLORIDE 80 ML IV SCH ×2 (16:11→16:13)
[2020-04-12] MEDS: INSULIN GLARGINE SOLOSTAR 100 UNITS/ML 3 ML PEN SC SCH (17:20)
[2020-04-12] MEDS: REMDESIVIR 100 MG in SODIUM CHLORIDE 0.9% 230 ML IV SCH (19:59)
[2020-04-12] MEDS ORDERED: SODIUM CHLORIDE 0.9% 10ML FLUSH IV SCH (20:00)
[2020-04-12] MEDS ORDERED: INSULIN GLARGINE SOLOSTAR 100 UNITS/ML 3 ML PEN SC SCH (20:00)
[2020-04-13] MEDS: HEPARIN SODIUM/DEXTROSE 25,000 UNITS/500 ML BAG IV SCH (00:25)
[2020-04-13] MEDS: INSULIN ASPART 100 UNITS/ML 3 ML PEN SC SCH ×4 (06:06→20:11)
[2020-04-13] MEDS: INSULIN GLARGINE SOLOSTAR 100 UNITS/ML 3 ML PEN SC SCH ×2 (06:06→20:09)
[2020-04-13 06:21] LABS: Basophils # (auto) 0.01 K/uL (0-0.2); Basophils % (auto) 0.2 %; Hematocrit (blood only) 34.3 % (37-47); Hemoglobin 11.3 g/dL (12.0-16.0); Lymphocytes % (auto) 26.5 %; Mean Corpuscular Hgb Conc 32.9 g/dL (32-36); Mean Corpuscular Volume 88.2 fL (80-100); Mean Platelet Volume 9.5 fL (7.4-10.4); Monocytes # (auto) 0.32 K/uL (0.11-0.59); Monocytes % (auto) 7.7 %; Neutrophils # (auto) 2.72 K/uL (1.4-6.5); Neutrophils % (auto) 65.6 %; Platelet Count 191 K/uL (130-400); RDW Coefficient of Variation 13.1 % (11.5-14.5); RDW Standard Deviation 42.3 fL (36.4-46.3); Red Blood Count 3.89 M/uL (4.2-5.4); White Blood Count 4.15 K/uL (4.8-10.8)
[2020-04-13 06:59] LABS: BUN Creatinine Ratio 33.3 (10-20); Calcium 7.9 mg/dl (8.5-10.1); Creatinine Clr Calc Pharmacy 136.6 ml/min; Est GFR (African American) 133.4; Est GFR (Non-African American) 115.1; Magnesium 2.2 mg/dl (1.8-2.4); Phosphorus 2.2 mg/dl (2.5-4.9); Potassium 3.8 mmol/L (3.5-5.1)
[2020-04-13] MEDS ORDERED: POTASSIUM PHOS 3 MMOL/1 ML INFUSION IV STA (07:17)
[2020-04-13] MEDS ORDERED: POTASSIUM PHOSPHATE 15 MMOL in SODIUM CHLORIDE 0.9% 250 ML IV ONE (07:30)
[2020-04-13 07:58] LABS: Partial Thromboplastin Ratio 1.6; Partial Thromboplastin Time 44.9 Seconds (21.0-31.0)
[2020-04-13] MEDS: dexAMETHasone 6 MG in SYRINGE 0 ML IV SCH (07:58)
[2020-04-13] MEDS: FAMOTIDINE 20 MG in SYRINGE 3 ML IV SCH (07:58)
--- NOTE | 2020-04-13 09:31 | Critical Care Progress Note ---
Date of Service April 13, 2020 Assessment & Plan (1) Admitted to intensive care unit: Reason Critically Ill: 59-year-old female with positive COVID-19, and suspected pulmonary embolism requiring intubation, thrombolysis therapy, vasopressors and paralyzed and proned Neuro - Sedation: Versed and fentanyl Cardiac - Cardiogenic shockresolved -Received TPA in ED, heparin drip to follow -Follow-up echo in future Respiratory -improved: Currently utilizing 2-5 L Acute hypoxic respiratory failurepatient with COVID-19 pneumonia and diffuse bilateral opacities on chest x-ray. Also suspect pulmonary embolism given patient's rapid decompensation along with cardiogenic shock. -Started on remdesivir and dexamethasone as patient only within 3 days of symptoms -Started on empiric broad-spectrum antibiotics, see ID below -Continuous monitoring on pulse ox GI - Regular diet IV famotidine RENAL/LYTES - Creatinine within normal limits, monitor with routine CBCs and replete electrolytes as indicated -40 M EQ potassium acetate - Discontinue Krishnan at bedside commode ENDO - No history of diabetes, ICU hyperglycemic protocol Hypothyroidismcontinue Synthroid HEME - H&H stable ID - COVID-19 PCR positive, influenza a and B negative Procalcitonin elevated but lactate within normal limits and currently afebrile No growth to date in antibiotics, discontinued today LINES/IV ACCESS - Discontinue central line and A-line DVT PROPHYLAXIS - SCDs, heparin drip CODE STATUSfull code Stable for downgrade out of ICU (2) Acute respiratory failure with hypoxia: (3) Cardiogenic shock: (4) Pulmonary embolism associated with COVID-19: (5) Pneumonia due to COVID-19 virus: (6) Hypothyroidism: (7) Hyperlipidemia: (8) Anxiety: (9) Depression: (10) ARDS (adult respiratory distress syndrome): Admission and Anticipated Discharge Date Admission Date: April 10, 2020 Subjective Feels better than yesterday, mild shortness of breath, hungry Review of Systems Review of Systems: All systems reviewed & are unremarkable except as noted in HPI & below Physical Exam Physical Exam: General: Alert and oriented x3 Skin: Warm, dry, Head: Atraumatic Ears, nose, mouth and throat: airway patent Cardiovascular: Normal peripheral perfusion Respiratory: Mild tachypnea no accessory muscle use Gastrointestinal: Non distended Musculoskeletal: No deformity Results & Data Results & Data ([facility]) Vital Signs (Past 12 Hours) Vital Signs Temp Pulse Resp BP Pulse Ox 04/13/20 08:15 37.3 C 98 H 130/73 95 04/13/20 08:01 37.2 C 98 H 94 04/13/20 08:00 37.2 C 97 H 128/81 95 04/13/20 07:45 37.2 C 94 H 129/78 93 04/13/20 07:30 37.2 C 98 H 126/81 93 04/13/20 07:15 37.1 C 89 124/81 92 04/13/20 07:01 37.1 C 90 92 04/13/20 07:00 37.1 C 90 130/76 94 04/13/20 06:00 37.1 C 99 H 20 96 04/13/20 05:45 37.1 C 90 18 120/70 95 04/13/20 05:30 37.0 C 83 22 121/77 94 04/13/20 05:15 37.0 C 83 14 116/73 94 04/13/20 05:01 36.9 C 86 16 94 04/13/20 05:00 36.9 C 84 124/71 94 04/13/20 04:45 37.0 C 91 H 126/81 95 04/13/20 04:30 37.0 C 88 118/75 94 04/13/20 04:15 37.0 C 85 124/77 95 04/13/20 04:01 36.8 C 87 94 04/13/20 04:00 36.8 C 88 115/71 95 04/13/20 03:45 36.8 C 88 114/74 96 04/13/20 03:30 36.8 C 80 105/66 95 04/13/20 03:15 36.8 C 79 112/69 94 04/13/20 03:01 36.8 C 88 96 04/13/20 03:00 36.8 C 82 116/72 96 04/13/20 02:45 36.8 C 85 113/65 95 04/13/20 02:30 36.8 C 82 114/73 95 04/13/20 02:15 36.9 C 84 116/70 95 04/13/20 02:01 36.9 C 82 24 95 04/13/20 02:00 36.9 C 85 22 115/72 95 04/13/20 01:45 36.9 C 87 18 124/68 95 04/13/20 01:30 37.0 C 86 16 115/73 95 04/13/20 01:15 37.0 C 87 18 120/76 95 04/13/20 01:01 37.0 C 86 16 94 04/13/20 01:00 37.0 C 86 22 112/73 92 04/13/20 00:45 37.1 C 87 20 112/70 92 04/13/20 00:30 37.1 C 90 24 115/71 93 04/13/20 00:15 37.2 C 87 22 122/71 93 04/13/20 00:01 37.2 C 95 H 18 95 04/13/20 00:00 37.1 C 98 H 16 124/79 96 04/12/20 23:45 37.1 C 87 16 113/73 93 04/12/20 23:30 37.1 C 94 H 20 118/72 95 04/12/20 23:15 37.1 C 88 16 111/64 93 04/12/20 23:01 37.1 C 88 18 95 04/12/20 23:00 37.1 C 89 16 114/73 94 Coding Level of Care Code 64329 Subseq Hosp Care Lvl 3 Diagnoses Admitted to intensive care unit Z78.9 Acute respiratory failure with hypoxia J96.01 Cardiogenic shock R57.0 Pulmonary embolism associated with COVID-19 U07.1; I26.99 Pneumonia due to COVID-19 virus U07.1; J12.82 Hypothyroidism E03.9 Hyperlipidemia E78.5 Anxiety F41.9 Depression F32.9 ARDS (adult respiratory distress syndrome) J80
[2020-04-13] MEDS ORDERED: LORazepam 0.5 MG/1 ML VIAL IV STA (09:51)
[2020-04-13] MEDS ORDERED: ONDANSETRON INJ 2 MG/ML 2 ML VIAL IV STA (09:51)
[2020-04-13] MEDS ORDERED: LORazepam 2 MG/4 ML VIAL ONE (09:53)
[2020-04-13] MEDS ORDERED: ONDANSETRON INJ 2 MG/ML 2 ML VIAL ONE (09:54)
[2020-04-13] MEDS ORDERED: MoRPHine SULFATE 2 MG/ML CARP IV STA (10:08)
--- NOTE | 2020-04-13 10:08 | Hospitalist Progress Note ---
Date of Service April 13, 2020 Assessment & Plan (1) Acute respiratory failure with hypoxia: Secondary to ARDS, suspected PE, COVID-19 pneumonia, possible bacterial pneumonia. intubated and proned for the first 24 hours ventilator management per ICU did well with spontaneous breathing trial 04/12, extubated to 3L NC in the afternoon on 04/12 some increased work of breathing, desaturating on 04/13 in the morning increased cough, trying to mobilize sputum CXR similar to previous improved with Lasix 20mg IV and Ativan and Morphine down to 3L (2) Pneumonia due to COVID-19 virus: Dexamethasone 6mg IV daily x 10 days, day 4 Convalescent plasma Remdesivir 5 day IV course day 4 extubated and breathing well on 3L today coughing up sputum, will add flutter valve to use several times a day (3) Pulmonary embolism associated with COVID-19: Suspected based on sudden onset shock in the ER with acute respiratory failure in the setting of chest pain. Unstable to go through CT for PE. Improved hemodynamics and hypoxia after tPA given continue heparin drip, will change to Apixaban 10mg BID (4) ARDS (adult respiratory distress syndrome): ICU management on ventilator. Difficult to rule out bacterial pneumonia with positive procalcitonin. Antibiotics per ICU with Zosyn and Vancomycin. Follow up blood cultures much improved, breathing on 3L (5) Cardiogenic shock: In setting of suspected PE. Improved with IV fluid resuscitation, tPA and started on Levophed in ER. maintain MAP of 65 shock resolved, no longer on pressor support, actually quite hypertensive but this was due to stress and pain (6) Hypothyroidism: Continue levothyroxine once she is able to eat and drink. (7) Hyperlipidemia: Restart atorvastatin when able. (8) Depression: Restart sertraline when able to avoid withdrawal (9) Chest pain: had it this morning, BP elevated and tachycardic EKG without obvious ischemic changes, went away with Ativan 0.5mg IV and morphine will continue to monitor Admission and Anticipated Discharge Date Admission Date: April 10, 2020 Subjective patient anxious, tachycardic, hypertensive this morning around 10am, called to bedside coughing up some phlegm, some blood mixed in but not a lot says she is having chest pain, difficulty breathing, diaphoretic, this happened suddenly, had a good night up to 6L NC with sats 90% but RR in the 30's BP above 200 systolic labs all stable this morning, no fever gave her Ativan 0.5mg IV and she started to feel better will check EKG, chest x-ray, give her Lasix 20mg IV patient down to 3L after Lasix and morphine will downgrade to med tele status Review of Systems Review of Systems: All systems reviewed & are unremarkable except as noted in Subjective Constitutional: + sweats, + fatigue and + weakness; no fever Respiratory: + cough, + dyspnea, + dyspnea on exertion, + hemoptysis (scant) and + sputum production Cardiovascular: + chest pain; no palpitations, no syncope and no edema Gastrointestinal: + nausea; no abdominal pain, no vomiting, no constipation an d no diarrhea/loose stools Physical Exam Constitutional: well developed, well nourished, + acute distress and + ill appearing Neck: trachea midline, no thyromegaly Respiratory: + respiratory distress, + labored breathing, + uses accessory muscles, + cough and + tachypneic Auscultation: + rhonchi and + wheezes Cardiovascular: Rate/Rhythm: regular rhythm and + tachycardic Heart Sounds: normal S1 and normal S2; no murmur Extremities: normal capillary refill; no edema Gastrointestinal (Abdomen): normal bowel sounds, soft, nontender, no hepatosplenomegaly Musculoskeletal: Head/Neck/Chest: normocephalic and head atraumatic Extremities: extremities normal to inspection Skin: no rashes, warm and dry Neurologic: CN's II-XI intact bilaterally and awake; no focal motor deficits Psychiatric: Orientation: alert and oriented x 3 Affect: + anxious affect Results & Data Results & Data ([facility]) Vital Signs (Past 12 Hours) Vital Signs Temp Pulse Resp BP Pulse Ox 04/13/20 08:15 37.3 C 98 H 130/73 95 04/13/20 08:01 37.2 C 98 H 94 04/13/20 08:00 37.2 C 97 H 128/81 95 04/13/20 07:45 37.2 C 94 H 129/78 93 04/13/20 07:30 37.2 C 98 H 126/81 93 04/13/20 07:15 37.1 C 89 124/81 92 04/13/20 07:01 37.1 C 90 92 04/13/20 07:00 37.1 C 90 130/76 94 04/13/20 06:00 37.1 C 99 H 20 96 04/13/20 05:45 37.1 C 90 18 120/70 95 04/13/20 05:30 37.0 C 83 22 121/77 94 04/13/20 05:15 37.0 C 83 14 116/73 94 04/13/20 05:01 36.9 C 86 16 94 04/13/20 05:00 36.9 C 84 124/71 94 04/13/20 04:45 37.0 C 91 H 126/81 95 04/13/20 04:30 37.0 C 88 118/75 94 04/13/20 04:15 37.0 C 85 124/77 95 04/13/20 04:01 36.8 C 87 94 04/13/20 04:00 36.8 C 88 115/71 95 04/13/20 03:45 36.8 C 88 114/74 96 04/13/20 03:30 36.8 C 80 105/66 95 04/13/20 03:15 36.8 C 79 112/69 94 04/13/20 03:01 36.8 C 88 96 04/13/20 03:00 36.8 C 82 116/72 96 04/13/20 02:45 36.8 C 85 113/65 95 04/13/20 02:30 36.8 C 82 114/73 95 04/13/20 02:15 36.9 C 84 116/70 95 04/13/20 02:01 36.9 C 82 24 95 04/13/20 02:00 36.9 C 85 22 115/72 95 04/13/20 01:45 36.9 C 87 18 124/68 95 04/13/20 01:30 37.0 C 86 16 115/73 95 04/13/20 01:15 37.0 C 87 18 120/76 95 04/13/20 01:01 37.0 C 86 16 94 04/13/20 01:00 37.0 C 86 22 112/73 92 04/13/20 00:45 37.1 C 87 20 112/70 92 04/13/20 00:30 37.1 C 90 24 115/71 93 04/13/20 00:15 37.2 C 87 22 122/71 93 04/13/20 00:01 37.2 C 95 H 18 95 04/13/20 00:00 37.1 C 98 H 16 124/79 96 04/12/20 23:45 37.1 C 87 16 113/73 93 04/12/20 23:30 37.1 C 94 H 20 118/72 95 04/12/20 23:15 37.1 C 88 16 111/64 93 04/12/20 23:01 37.1 C 88 18 95 04/12/20 23:00 37.1 C 89 16 114/73 94 Laboratory Results Laboratory Results - last 24 hr 04/12/20 04/12/20 04/12/20 12:20 16:11 23:25 WBC RBC Hgb Hct MCV MCH MCHC RDW Std Deviation RDW Coeff of Julia Plt Count MPV Immature Gran % (Auto) Neut % (Auto) Lymph % (Auto) [place] % (Auto) Eos % (Auto) Baso % (Auto) Neut # (Auto) Lymph # (Auto) [place] # (Auto) Eos # (Auto) Baso # (Auto) Immature Gran # (Auto) APTT PTT Ratio Sodium Potassium Chloride Carbon Dioxide Anion Gap BUN Creatinine Est Cr Clr Drug Dosing Est GFR ( Amer) Est GFR (Non-Af Amer) BUN/Creatinine Ratio Glucose POC Glucose 157 H 115 H POC Glucose (other) 158 H Calcium Phosphorus Magnesium 04/13/20 04/13/20 04/13/20 03:50 05:52 05:52 WBC 4.15 L RBC 3.89 L Hgb 11.3 L Hct 34.3 L MCV 88.2 MCH 29.0 MCHC 32.9 RDW Std Deviation 42.3 RDW Coeff of Julia 13.1 Plt Count 191 MPV 9.5 Immature Gran % (Auto) 0.0 Neut % (Auto) 65.6 Lymph % (Auto) 26.5 [place] % (Auto) 7.7 Eos % (Auto) 0.0 Baso % (Auto) 0.2 Neut # (Auto) 2.72 Lymph # (Auto) 1.10 L [place] # (Auto) 0.32 Eos # (Auto) 0.00 Baso # (Auto) 0.01 Immature Gran # (Auto) 0.00 APTT PTT Ratio Sodium 143 Potassium 3.8 D Chloride 110 H Carbon Dioxide 29 Anion Gap 4.0 BUN 13 Creatinine 0.38 L Est Cr Clr Drug Dosing 136.6 Est GFR ( Amer) 133.4 Est GFR (Non-Af Amer) 115.1 BUN/Creatinine Ratio 33.3 H Glucose 91 POC Glucose 107 H POC Glucose (other) Calcium 7.9 L D Phosphorus 2.2 L Magnesium 2.2 04/13/20 04/13/20 04/13/20 05:54 06:02 11:57 WBC RBC Hgb Hct MCV MCH MCHC RDW Std Deviation RDW Coeff of Julia Plt Count MPV Immature Gran % (Auto) Neut % (Auto) Lymph % (Auto) [place] % (Auto) Eos % (Auto) Baso % (Auto) Neut # (Auto) Lymph # (Auto) [place] # (Auto) Eos # (Auto) Baso # (Auto) Immature Gran # (Auto) APTT 44.9 H PTT Ratio 1.6 Sodium Potassium Chloride Carbon Dioxide Anion Gap BUN Creatinine Est Cr Clr Drug Dosing Est GFR ( Amer) Est GFR (Non-Af Amer) BUN/Creatinine Ratio Glucose POC Glucose 102 H 126 H POC Glucose (other) Calcium Phosphorus Magnesium Diagnostic Findings XR chest 1V portable CLINICAL HISTORY: hypoxia COMPARISON STUDY: 04/12/2020 FINDINGS: There is been interval removal of the endotracheal tube and nasogastric tubes. The heart appears smaller. There is a pulmonary edema pattern. There is right hilar fullness. There are patchy basilar airspace opacities.[ IMPRESSION: 1. Interval removal of the nasogastric and endotracheal tubes 2. Persistent right hilar fullness 3. Slight improvement in the lower lobe airspace opacities with superimposed pulmonary edema Medications Administered Current Inpatient Medications Apixaban (Apixaban 5 Mg Tablet) 10 mg PO BID [facility] Stop: 04/19/20 23:59 Dextrose (Dextrose 50% 50 Ml Syringe) 25 - 50 ml IV UD PRN; Protocol PRN Reason: Hypoglycemia Protocol Stop: 05/11/20 01:25 Famotidine (Famotidine 20 Mg Tab) 20 mg PO BID [facility] Stop: 05/13/20 20:59 Glucagon (Glucagon For Inj 1 Mg Vial) 1 mg SQ UD PRN; Protocol PRN Reason: Hypoglycemia Protocol Stop: 05/11/20 01:25 Glucose (Glucose 10 Tabs/Tube) 4 - 8 tabs PO UD PRN; Protocol PRN Reason: Hypoglycemia Protocol Stop: 05/11/20 01:25 Glucose (Glucose 40% Gel 15 Gm Tube) 15 - 30 gm PO UD PRN; Protocol PRN Reason: Hypoglycemia Protocol Stop: 05/11/20 01:25 Dexamethasone 6 mg/ Syringe 1.5 mls @ 1 mls/min IV DAILY [facility] Stop: 04/22/20 08:59 Last Admin: 04/13/20 07:58 Dose: 1 mls/min Documented by: Remdesivir 100 mg/ Sodium (Chloride) 250 mls @ 250 mls/hr IV Q24H [facility]; Protocol Stop: 04/14/20 20:59 Last Infusion: 04/12/20 21:01 Dose: Infused Documented by: Insulin Aspart (Insulin Aspart 100 Units/Ml 3 Ml Pen) 0 units SC ACHS [facility] Stop: 05/12/20 11:59 Last Admin: 04/13/20 12:11 Dose: Not Given Documented by: Insulin Glargine (Insulin Glargine Solostar 100 Units/Ml 3 Ml Pen) 0 units SC BID [facility]; Protocol Stop: 05/13/20 20:59 Levothyroxine Sodium (Levothyroxine Sodium 75 Mcg Tablet) 75 mcg PO DAILYBB [facility] Stop: 05/14/20 06:29 Miscellaneous (Carbohydrates For Hypoglycemia ) 15 - 30 gm PO UD PRN PRN Reason: Hypoglycemia Protocol Stop: 05/11/20 01:25 Miscellaneous Information (Pharmacy Glycemic Mgmt Consult) 1 ea N/A UD PRN; Protocol PRN Reason: Consult Stop: 05/11/20 01:38 Sertraline HCl (Sertraline Hcl 100 Mg Tablet) 100 mg PO DAILY [facility] Stop: 05/13/20 15:59 PG Care Time/CCT Total # of Minutes Spent Total Time Spent: 35 Total Time Spent with Patient: Total time spent is greater than 50% in coordination of care (as documented) at patient's floor/unit and/or counseling patient: Coding Level of Care Code 37852 Subseq Hosp Care Lvl 3 Diagnoses Acute respiratory failure with hypoxia J96.01 Pneumonia due to COVID-19 virus U07.1; J12.82 Pulmonary embolism associated with COVID-19 U07.1; I26.99 ARDS (adult respiratory distress syndrome) J80 Cardiogenic shock R57.0 Hypothyroidism E03.9 Hyperlipidemia E78.5 Depression F32.9 Chest pain R07.9
[2020-04-13] MEDS ORDERED: FUROSEMIDE 40 MG/4 ML VIAL IV ONE (10:15)
[2020-04-13] MEDS ORDERED: FUROSEMIDE 20 MG in SYRINGE 0 ML IV ONE (10:15)
--- NOTE | 2020-04-13 10:49 | XRay Report ---
XR chest 1V portable CLINICAL HISTORY: hypoxia COMPARISON STUDY: 04/12/2020 FINDINGS: There is been interval removal of the endotracheal tube and nasogastric tubes. The heart ap pears smaller. There is a pulmonary edema pattern. There is right hilar fullness. There are patchy ba silar airspace opacities.[ IMPRESSION: 1. Interval removal of the nasogastric and endotracheal tubes 2. Persistent right hilar fullness 3. Slight improvement in the lower lobe airspace opacities with superimposed pulmonary edema ACT 112: Negative or not required by law. Electronically signed by: Michael Thomas M.D. 04/13/2020 10:48 AM
[2020-04-13] MEDS ORDERED: Nursing to Pharmacy Communication SCH (11:30)
[2020-04-13] MEDS ORDERED: POTASSIUM ACETATE 20 MEQ in 0.9 % SODIUM CHLORIDE 100 ML IV STA (12:35)
[2020-04-13] MEDS ORDERED: HEPARIN DRIP- STOP ORDER ONE (13:00)
[2020-04-13] MEDS: APIXABAN 5 MG TABLET PO SCH ×2 (14:20→20:23)
--- NOTE | 2020-04-13 14:56 | Pharmacy Report ---
Pharmacy Glycemic Short Note 2 - Date of Service April 13, 2020 - Glycemic Short BSG Results (Last 24 hours): 04/12/20 04/12/20 04/12/20 12:20 16:11 23:25 Glucose POC Glucose 157 H 115 H POC Glucose (other) 158 H 04/13/20 04/13/20 04/13/20 03:50 05:52 06:02 Glucose 91 POC Glucose 107 H 102 H POC Glucose (other) 04/13/20 11:57 Glucose POC Glucose 126 H POC Glucose (other) OUTPATIENT ANTIDIABETIC REGIMEN: * N/A, no prior h/o DM * A1c = 5.9% 04/11/20 ASSESSMENT: 04/13 * BSGs well controlled over last 24 hrs * Patient has been extubated. Diet is to begin this afternoon. IV steroids continue * Fasting BSG 102 this AM with 9 units Lantus on board - will dose BID per scale * Will refrain from using NPH insulin to combat hyperglycemia assoc w/ IV dexamethasone until pt is tolerating a diet and BSG pattern suggests a need * Rather will utilize Novolog w/ meals and "severe" stress carb coverage to prevent steroid induced hyperglycemia 04/11 * Patient admitted yesterday for acute PE w/ hypotension requiring thrombolysis, and pressure support. Empiric abx therapy also ordered due to dx of COVID19 viral pna, possible superimposed bacterial pna, elevated procal. * No prior dx of DM and A1c not diagnostic for DM however does indicate possible impaired insulin sensitivity / "pre-DM" * Currently no dexamethasone is ordered * She was acutely hyperglycemic on admission however this has resolved without insulin therapy. * Will initiate Novolog SQ Q 4 hrs utilizing weight and "moderate-severe" stress level given current BSG pattern despite stressors. Basal insulin will be added if glycemic control deteriorates w/ Novolog alone. PLAN FOR INPATIENT GLYCEMIC CONTROL: * Basal insulin * Lantus SQ BID per scale: * 0 units if BSG less than 180 * 9 units if BSG 180 or greater * Bolus insulin * NovoLog per scale Q 4 hrs * Goal Range: Low 110 mg/dL - High 140 mg/dL * Correction Factor: 25 mg/dL/unit * Nutritional / Prandial insulin per carb ratio of 1 unit per 8 grams CHO consumed
[2020-04-13] MEDS: SERTRALINE HCL 100 MG TABLET PO SCH (17:31)
[2020-04-13] MEDS: FAMOTIDINE 20 MG TAB PO SCH (20:23)
[2020-04-13] MEDS: REMDESIVIR 100 MG in SODIUM CHLORIDE 0.9% 230 ML IV SCH (20:24)
[2020-04-13] MEDS ORDERED: POTASSIUM CHLORIDE 20 MEQ/15 ML UDC PO SCH (21:00)
[2020-04-13] MEDS: FUROSEMIDE 20 MG in SYRINGE 0 ML IV SCH (22:40)
[2020-04-14 06:22] LABS: Basophils # (auto) 0.01 K/uL (0-0.2); Basophils % (auto) 0.2 %; Eosinophils # (auto) 0.02 K/uL (0-0.5); Eosinophils % (auto) 0.4 %; Hematocrit (blood only) 40.7 % (37-47); Hemoglobin 13.2 g/dL (12.0-16.0); Immature Granulocytes # (auto) 0.02 K/uL (0.00-0.02); Immature Granulocytes % (auto) 0.4 %; Lymphocytes # (auto) 1.37 K/uL (1.2-3.4); Lymphocytes % (auto) 26.1 %; Mean Corpuscular Hemoglobin 28.6 pg (25-34); Mean Corpuscular Hgb Conc 32.4 g/dL (32-36); Mean Corpuscular Volume 88.1 fL (80-100); Mean Platelet Volume 9.4 fL (7.4-10.4); Monocytes # (auto) 0.64 K/uL (0.11-0.59); Monocytes % (auto) 12.2 %; Neutrophils # (auto) 3.19 K/uL (1.4-6.5); Neutrophils % (auto) 60.7 %; Platelet Count 244 K/uL (130-400); RDW Coefficient of Variation 12.9 % (11.5-14.5); RDW Standard Deviation 41.6 fL (36.4-46.3); Red Blood Count 4.62 M/uL (4.2-5.4); White Blood Count 5.25 K/uL (4.8-10.8)
[2020-04-14] MEDS: LEVOTHYROXINE SODIUM 75 MCG TABLET PO SCH (06:31)
--- NOTE | 2020-04-14 06:35 | Electrocardiogram Report ---
Test Reason : Blood Pressure : / mmHG Vent. Rate : 109 BPM Atrial Rate : 109 BPM P-R Int : 154 ms QRS Dur : 086 ms QT Int : 374 ms P-R-T Axes : -03 067 095 degrees QTc Int : 503 ms Poor data quality, interpretation may be adversely affected Sinus tachycardia Nonspecific ST and T wave abnormality Abnormal ECG When compared with ECG of 10-APR-2020 17:48, No significant change Confirmed by Joshua Torres ([id number]) on 04/14/2020 6:35:33 AM Referred By: REFERRED SELF Confirmed By:Joshua Torres
[2020-04-14 06:58] LABS: BUN Creatinine Ratio 32.1 (10-20); Calcium 8.9 mg/dl (8.5-10.1); Creatinine Clr Calc Pharmacy 85.1 ml/min; Est GFR (African American) 114.2; Est GFR (Non-African American) 98.5; Magnesium 2.2 mg/dl (1.8-2.4); Potassium 3.9 mmol/L (3.5-5.1)
[2020-04-14 07:03] LABS: Phosphorus 2.8 mg/dl (2.5-4.9)
[2020-04-14] MEDS: INSULIN ASPART 100 UNITS/ML 3 ML PEN SC SCH ×2 (08:54→12:38)
[2020-04-14] MEDS: dexAMETHasone 6 MG in SYRINGE 0 ML IV SCH (08:57)
[2020-04-14] MEDS: FAMOTIDINE 20 MG TAB PO SCH ×2 (08:58→21:29)
[2020-04-14] MEDS: SERTRALINE HCL 100 MG TABLET PO SCH (08:58)
[2020-04-14] MEDS: INSULIN GLARGINE SOLOSTAR 100 UNITS/ML 3 ML PEN SC SCH (08:59)
[2020-04-14] MEDS: APIXABAN 5 MG TABLET PO SCH ×2 (08:59→21:29)
[2020-04-14] MEDS: FUROSEMIDE 20 MG in SYRINGE 0 ML IV SCH (09:00)
[2020-04-14] MEDS ORDERED: LEVOTHYROXINE SODIUM 37.5 MCG in SYRINGE 0 ML IV SCH (09:00)
[2020-04-14] MEDS: POTASSIUM CHLORIDE 10 MEQ TABCR PO SCH ×3 (09:06→21:32)
--- NOTE | 2020-04-14 16:56 | Hospitalist Progress Note ---
Date of Service April 14, 2020 Assessment & Plan (1) Acute respiratory failure with hypoxia: Secondary to ARDS, suspected PE, COVID-19 pneumonia, possible bacterial pneumonia. intubated and proned for the first 24 hours ventilator management per ICU did well with spontaneous breathing trial 04/12, extubated to 3L NC in the afternoon on 04/12 breathing is stable on 2L today, likely can titrate down further keeping lungs dry with Lasix, can stop after today move to medical floor, likely will be here over weekend (2) Pneumonia due to COVID-19 virus: Dexamethasone 6mg IV daily x 10 days, day 5 Convalescent plasma Remdesivir 5 day IV course day 5 today extubated 04/12 breathing well on 2L today coughing up sputum, will add flutter valve to use several times a day, it is helping (3) Pulmonary embolism associated with COVID-19: Suspected based on sudden onset shock in the ER with acute respiratory failure in the setting of chest pain. Unstable to go through CT for PE. Improved hemodynamics and hypoxia after tPA given treated with heparin drip, now on Apixaban 10mg BID (4) ARDS (adult respiratory distress syndrome): resolved, extubated 04/12 now on 2L Lasix used to keep lungs dry, can now stop (5) Cardiogenic shock: In setting of suspected PE. Improved with IV fluid resuscitation, tPA and started on Levophed in ER. maintain MAP of 65 shock resolved, no longer on pressor support, actually quite hypertensive but this was due to stress and pain (6) Hypothyroidism: Continue levothyroxine (7) Hyperlipidemia: Restart atorvastatin (8) Depression: Restart sertraline (9) Chest pain: resolved, was due to coughing Admission and Anticipated Discharge Date Admission Date: April 10, 2020 Subjective patient doing really well today breathing is comfortable, eating well, feels good to eat real food no BM today but she feels like she could have one soon, making a lot of urine via inman hold on further Lasix, try to get inman out tomorrow has some mild chest pain when she coughs but that is it coughing up some sputum but she feels like it is stuck, encouraged her to use flutter valve labs are all stable today, no issues on tele move to medical floor Review of Systems Review of Systems: All systems reviewed & are unremarkable except as noted in Subjective Physical Exam Constitutional: well developed, well nourished, + acute distress and + ill appearing Neck: trachea midline, no thyromegaly Respiratory: normal respiratory effort, lungs clear to auscultation Auscultation: + rhonchi (clear with cough) Cardiovascular: RRR, no murmur, no edema Gastrointestinal (Abdomen): normal bowel sounds, soft, nontender, no hepatosplenomegaly Musculoskeletal: Head/Neck/Chest: normocephalic and head atraumatic Extremities: extremities normal to inspection Skin: no rashes, warm and dry Neurologic: CN's II-XI intact bilaterally and awake; no focal motor deficits Psychiatric: Orientation: alert and oriented x 3 Results & Data Results & Data ([facility]) Vital Signs (Past 12 Hours) Vital Signs Temp Pulse Resp BP Pulse Ox 04/14/20 16:11 36.9 C 81 17 120/79 97 04/14/20 15:30 37.3 C 85 18 112/59 L 95 04/14/20 15:05 77 04/14/20 12:00 36.9 C 82 20 111/67 95 04/14/20 09:55 68 04/14/20 07:22 37.0 C 77 20 129/72 97 Laboratory Results Laboratory Results - last 24 hr 04/13/20 04/13/20 04/14/20 17:33 19:52 05:28 WBC 5.25 RBC 4.62 Hgb 13.2 Hct 40.7 MCV 88.1 MCH 28.6 MCHC 32.4 RDW Std Deviation 41.6 RDW Coeff of Julia 12.9 Plt Count 244 MPV 9.4 Immature Gran % (Auto) 0.4 Neut % (Auto) 60.7 Lymph % (Auto) 26.1 [place] % (Auto) 12.2 Eos % (Auto) 0.4 Baso % (Auto) 0.2 Neut # (Auto) 3.19 Lymph # (Auto) 1.37 [place] # (Auto) 0.64 H Eos # (Auto) 0.02 Baso # (Auto) 0.01 Immature Gran # (Auto) 0.02 Sodium Potassium Chloride Carbon Dioxide Anion Gap BUN Creatinine Est Cr Clr Drug Dosing Est GFR ( Amer) Est GFR (Non-Af Amer) BUN/Creatinine Ratio Glucose POC Glucose 131 H 120 H Calcium Phosphorus Magnesium 04/14/20 04/14/20 04/14/20 05:28 07:42 11:44 WBC RBC Hgb Hct MCV MCH MCHC RDW Std Deviation RDW Coeff of Julia Plt Count MPV Immature Gran % (Auto) Neut % (Auto) Lymph % (Auto) [place] % (Auto) Eos % (Auto) Baso % (Auto) Neut # (Auto) Lymph # (Auto) [place] # (Auto) Eos # (Auto) Baso # (Auto) Immature Gran # (Auto) Sodium 142 Potassium 3.9 Chloride 105 Carbon Dioxide 32 Anion Gap 5.0 BUN 20 H D Creatinine 0.61 Est Cr Clr Drug Dosing 85.1 Est GFR ( Amer) 114.2 Est GFR (Non-Af Amer) 98.5 BUN/Creatinine Ratio 32.1 H Glucose 80 POC Glucose 84 111 H Calcium 8.9 Phosphorus 2.8 Magnesium 2.2 Medications Administered Current Inpatient Medications Apixaban (Apixaban 5 Mg Tablet) 10 mg PO BID [facility] Stop: 04/19/20 23:59 Last Admin: 04/14/20 08:59 Dose: 10 mg Documented by: Ascorbic Acid (Ascorbic Acid 500 Mg Tab) 500 mg PO QAM [facility] Stop: 05/15/20 08:59 Atorvastatin Calcium (Atorvastatin 40 Mg Tab) 40 mg PO QAM [facility] Stop: 05/15/20 08:59 Cyanocobalamin (Cyanocobalamin 500 Mcg Tablet (Vitamin B-12)) 1,000 mcg PO QAM [facility] Stop: 05/15/20 08:59 Dextrose (Dextrose 50% 50 Ml Syringe) 25 - 50 ml IV UD PRN; Protocol PRN Reason: Hypoglycemia Protocol Stop: 05/11/20 01:25 Famotidine (Famotidine 20 Mg Tab) 20 mg PO BID [facility] Stop: 05/13/20 20:59 Last Admin: 04/14/20 08:58 Dose: 20 mg Documented by: Glucagon (Glucagon For Inj 1 Mg Vial) 1 mg SQ UD PRN; Protocol PRN Reason: Hypoglycemia Protocol Stop: 05/11/20 01:25 Glucose (Glucose 10 Tabs/Tube) 4 - 8 tabs PO UD PRN; Protocol PRN Reason: Hypoglycemia Protocol Stop: 05/11/20 01:25 Glucose (Glucose 40% Gel 15 Gm Tube) 15 - 30 gm PO UD PRN; Protocol PRN Reason: Hypoglycemia Protocol Stop: 05/11/20 01:25 Heparin Sodium (Beef Lung) (Heparin 10 Unit/Ml 5 Ml Flush) 5 ml FLUSH PRN PRN PRN Reason: Flush Stop: 05/13/20 22:52 Dexamethasone 6 mg/ Syringe 1.5 mls @ 1 mls/min IV DAILY [facility] Stop: 04/22/20 08:59 Last Admin: 04/14/20 08:57 Dose: 1 mls/min Documented by: Remdesivir 100 mg/ Sodium (Chloride) 250 mls @ 250 mls/hr IV Q24H [facility]; Protocol Stop: 04/14/20 20:59 Last Infusion: 04/13/20 21:34 Dose: Infused Documented by: Levothyroxine Sodium (Levothyroxine Sodium 75 Mcg Tablet) 75 mcg PO DAILYBB [facility] Stop: 05/14/20 06:29 Last Admin: 04/14/20 06:31 Dose: 75 mcg Documented by: Miscellaneous (Carbohydrates For Hypoglycemia ) 15 - 30 gm PO UD PRN PRN Reason: Hypoglycemia Protocol Stop: 05/11/20 01:25 Potassium Chloride (Potassium Chloride 10 Meq Tabcr) 10 meq PO TID [facility] Stop: 05/14/20 08:59 Last Admin: 04/14/20 13:42 Dose: 10 meq Documented by: Sertraline HCl (Sertraline Hcl 100 Mg Tablet) 100 mg PO DAILY [facility] Stop: 05/13/20 15:59 Last Admin: 04/14/20 08:58 Dose: 100 mg Documented by: Vitamin D (Cholecalciferol 1,000 Units 25 Mcg Tab) 1,000 units PO QAM [facility] Stop: 05/15/20 08:59 PG Care Time/CCT Total # of Minutes Spent Total Time Spent with Patient: Total time spent is greater than 50% in coordination of care (as documented) at patient's floor/unit and/or counseling patient: Coding Level of Care Code 17262 Subseq Hosp Care Lvl 3 Diagnoses Acute respiratory failure with hypoxia J96.01 Pneumonia due to COVID-19 virus U07.1; J12.82 Pulmonary embolism associated with COVID-19 U07.1; I26.99 ARDS (adult respiratory distress syndrome) J80 Cardiogenic shock R57.0 Hypothyroidism E03.9 Hyperlipidemia E78.5 Depression F32.9 Chest pain R07.9
[2020-04-14] MEDS: REMDESIVIR 100 MG in SODIUM CHLORIDE 0.9% 230 ML IV SCH (20:12)
[2020-04-14] MEDS ORDERED: NURSING DECISION MEDICATION ONE (20:16)
[2020-04-14] MEDS ORDERED: COUGH DROP (SUGAR FREE) LOZ 24 LOZ/1 BOX BUCCAL PRN (20:22)
[2020-04-14] MEDS: DEXTROMETHORPHAN POLYMR COMPLX 30 MG/5 ML UDP PO PRN (21:52)
[2020-04-14] MEDS: BENZONATATE 100 MG CAPSULE PO PRN (23:09)
[2020-04-15] MEDS ORDERED: MELATONIN 3 MG TAB PO PRN (02:19)
[2020-04-15] MEDS ORDERED: MELATONIN 3 MG TAB PO ONE (02:26)
[2020-04-15] MEDS: LEVOTHYROXINE SODIUM 75 MCG TABLET PO SCH (06:32)
[2020-04-15] MEDS: dexAMETHasone 6 MG in SYRINGE 0 ML IV SCH (08:36)
[2020-04-15] MEDS: POTASSIUM CHLORIDE 10 MEQ TABCR PO SCH ×3 (08:36→20:54)
[2020-04-15] MEDS: APIXABAN 5 MG TABLET PO SCH ×2 (08:36→20:54)
[2020-04-15] MEDS: SERTRALINE HCL 100 MG TABLET PO SCH (08:36)
[2020-04-15] MEDS: CYANOCOBALAMIN 500 MCG TABLET (VITAMIN B-12) PO SCH (08:37)
[2020-04-15] MEDS: FAMOTIDINE 20 MG TAB PO SCH ×2 (08:37→20:54)
[2020-04-15] MEDS: ASCORBIC ACID 500 MG TAB PO SCH (08:37)
[2020-04-15] MEDS: ATORVASTATIN 40 MG TAB PO SCH (08:37)
[2020-04-15] MEDS: CHOLECALCIFEROL 1,000 UNITS 25 MCG TAB PO SCH (08:37)
[2020-04-15] MEDS: DEXTROMETHORPHAN POLYMR COMPLX 30 MG/5 ML UDP PO PRN (09:31)
--- NOTE | 2020-04-15 11:16 | Hospitalist Progress Note ---
Date of Service April 15, 2020 Assessment & Plan (1) Acute respiratory failure with hypoxia: Secondary to ARDS, suspected PE, COVID-19 pneumonia, possible bacterial pneumonia. intubated and proned for the first 24 hours ventilator management per ICU did well with spontaneous breathing trial 04/12, extubated to 3L NC in the afternoon on 04/12 breathing is stable on room air today, ambulating in room without oxygen, no distress keep this evening, might be ready for discharge tomorrow afternoon or Friday depending on how she feels tomorrow (2) Pneumonia due to COVID-19 virus: Dexamethasone 6mg IV daily x 10 days, day 6 change to PO dexamethasone today Convalescent plasma Remdesivir - completed 5 day course extubated 04/12 breathing well on room air today coughing up sputum, will add flutter valve to use several times a day, it is h elping (3) Pulmonary embolism associated with COVID-19: Suspected based on sudden onset shock in the ER with acute respiratory failure in the setting of chest pain. Unstable to go through CT for PE. Improved hemodynamics and hypoxia after tPA given treated with heparin drip after the tPA now on Apixaban 10mg BID x 7 days then 5mg BID would treat for 12 months (4) ARDS (adult respiratory distress syndrome): resolved, extubated 04/12 now on room air, no distress Lasix used to keep lungs dry, stopped 04/14 (5) Hypothyroidism: Continue levothyroxine (6) Hyperlipidemia: Restart atorvastatin (7) Depression: Restart sertraline (8) Chest pain: only when coughing Admission and Anticipated Discharge Date Admission Date: April 10, 2020 Subjective patient feels great, ambulating to the bathroom, no oxygen needed she is moving her bowels, she is making urine without the inman she is eating okay, appetite is taking some time to come around has some mild chest pain with coughing no labs today, were stable yesterday, no longer on Lasix discussed staying the weekend to monitor her recovery, likely home on Friday but might leg her go tomorrow afternoon will need another week at home to recover Review of Systems Review of Systems: All systems reviewed & are unremarkable except as noted in Subjective Constitutional: + weakness; no fever, no chills, no sweats and no fatigue Respiratory: + cough; no dyspnea and no dyspnea on exertion Cardiovascular: + chest pain (only with cough); no palpitations, no syncope and no edema Gastrointestinal: no abdominal pain, no nausea, no vomiting, no constipation and no diarrhea/loose stools Physical Exam Constitutional: well developed, well nourished, + acute distress and + ill appearing Neck: trachea midline, no thyromegaly Respiratory: normal respiratory effort, lungs clear to auscultation Auscultation: + rhonchi (clear with cough) Cardiovascular: RRR, no murmur, no edema Heart Sounds: no murmur Gastrointestinal (Abdomen): normal bowel sounds, soft, nontender, no hepatosplenomegaly Musculoskeletal: Head/Neck/Chest: normocephalic and head atraumatic Extremities: extremities normal to inspection Skin: no rashes, warm and dry Neurologic: CN's II-XI intact bilaterally and awake; no focal motor deficits Psychiatric: Orientation: alert and oriented x 3 Results & Data Results & Data ([facility]) Vital Signs (Past 12 Hours) Vital Signs Temp Pulse Resp BP Pulse Ox 04/15/20 07:29 36.8 C 76 18 107/66 92 Medications Administered Current Inpatient Medications Apixaban (Apixaban 5 Mg Tablet) 10 mg PO BID [facility] Stop: 04/19/20 23:59 Last Admin: 04/15/20 08:36 Dose: 10 mg Documented by: Ascorbic Acid (Ascorbic Acid 500 Mg Tab) 500 mg PO [facility] Stop: 05/15/20 08:59 Last Admin: 04/15/20 08:37 Dose: 500 mg Documented by: Atorvastatin Calcium (Atorvastatin 40 Mg Tab) 40 mg PO [facility] Stop: 05/15/20 08:59 Last Admin: 04/15/20 08:37 Dose: 40 mg Documented by: Benzonatate (Benzonatate 100 Mg Capsule) 100 mg PO TID PRN PRN Reason: cough Stop: 05/14/20 20:59 Last Admin: 04/14/20 23:09 Dose: 100 mg Documented by: Cyanocobalamin (Cyanocobalamin 500 Mcg Tablet (Vitamin B-12)) 1,000 mcg PO [facility] Stop: 05/15/20 08:59 Last Admin: 04/15/20 08:37 Dose: 1,000 mcg Documented by: Dexamethasone (Dexamethasone 4 Mg Tab) 6 mg PO [facility] Stop: 04/20/20 08:59 Dextromethorphan Polymer Complex (Dextromethorphan Polymr Complx 30 Mg/5 Ml Udp) 30 mg PO Q6H PRN PRN Reason: Cough Stop: 05/14/20 20:11 Last Admin: 04/15/20 09:31 Dose: 30 mg Documented by: Dextrose (Dextrose 50% 50 Ml Syringe) 25 - 50 ml IV UD PRN; Protocol PRN Reason: Hypoglycemia Protocol Stop: 05/11/20 01:25 Famotidine (Famotidine 20 Mg Tab) 20 mg PO BID [facility] Stop: 05/13/20 20:59 Last Admin: 04/15/20 08:37 Dose: 20 mg Documented by: Glucagon (Glucagon For Inj 1 Mg Vial) 1 mg SQ UD PRN; Protocol PRN Reason: Hypoglycemia Protocol Stop: 05/11/20 01:25 Glucose (Glucose 10 Tabs/Tube) 4 - 8 tabs PO UD PRN; Protocol PRN Reason: Hypoglycemia Protocol Stop: 05/11/20 01:25 Glucose (Glucose 40% Gel 15 Gm Tube) 15 - 30 gm PO UD PRN; Protocol PRN Reason: Hypoglycemia Protocol Stop: 05/11/20 01:25 Heparin Sodium (Beef Lung) (Heparin 10 Unit/Ml 5 Ml Flush) 5 ml FLUSH PRN PRN PRN Reason: Flush Stop: 05/13/20 22:52 Levothyroxine Sodium (Levothyroxine Sodium 75 Mcg Tablet) 75 mcg PO DAILYBB NANDINI Stop: 05/14/20 06:29 Last Admin: 04/15/20 06:32 Dose: 75 mcg Documented by: Melatonin (Melatonin 3 Mg Tab) 6 mg PO HS PRN PRN Reason: Sleep Stop: 05/15/20 02:18 Menthol (Cough Drop (Sugar Free) Marie 24 Marie/1 Box) 1 marie BUCCAL Q1H PRN PRN Reason: Cough Stop: 05/14/20 20:21 Last Admin: 04/14/20 21:28 Dose: 1 marie Documented by: Miscellaneous (Carbohydrates For Hypoglycemia ) 15 - 30 gm PO UD PRN PRN Reason: Hypoglycemia Protocol Stop: 05/11/20 01:25 Potassium Chloride (Potassium Chloride 10 Meq Tabcr) 10 meq PO TID [facility] Stop: 05/14/20 08:59 Last Admin: 04/15/20 08:36 Dose: 10 meq Documented by: Sertraline HCl (Sertraline Hcl 100 Mg Tablet) 100 mg PO DAILY [facility] Stop: 05/13/20 15:59 Last Admin: 04/15/20 08:36 Dose: 100 mg Documented by: Vitamin D (Cholecalciferol 1,000 Units 25 Mcg Tab) 1,000 units PO QAM NANDINI Stop: 05/15/20 08:59 Last Admin: 04/15/20 08:37 Dose: 1,000 units Documented by: PG Care Time/CCT Total # of Minutes Spent Total Time Spent with Patient: Total time spent is greater than 50% in coordination of care (as documented) at patient's floor/unit and/or counseling patient: Coding Level of Care Code 00043 Subseq Hosp Care Lvl 3 Diagnoses Acute respiratory failure with hypoxia J96.01 Pneumonia due to COVID-19 virus U07.1; J12.82 Pulmonary embolism associated with COVID-19 U07.1; I26.99 ARDS (adult respiratory distress syndrome) J80 Hypothyroidism E03.9 Hyperlipidemia E78.5 Depression F32.9 Chest pain R07.9
[2020-04-15] MEDS: BENZONATATE 100 MG CAPSULE PO PRN (20:54)
[2020-04-16] MEDS: LEVOTHYROXINE SODIUM 75 MCG TABLET PO SCH (05:43)
[2020-04-16 06:29] LABS: Hematocrit (blood only) 42.3 % (37-47); Hemoglobin 14.1 g/dL (12.0-16.0); Mean Corpuscular Hgb Conc 33.3 g/dL (32-36); Mean Corpuscular Volume 86.9 fL (80-100); Mean Platelet Volume 9.2 fL (7.4-10.4); Platelet Count 339 K/uL (130-400); RDW Coefficient of Variation 12.7 % (11.5-14.5); RDW Standard Deviation 40.6 fL (36.4-46.3); Red Blood Count 4.87 M/uL (4.2-5.4); White Blood Count 6.92 K/uL (4.8-10.8)
[2020-04-16 06:56] LABS: BUN Creatinine Ratio 26.6 (10-20); Creatinine Clr Calc Pharmacy 75.7 ml/min; Est GFR (African American) 110.7; Est GFR (Non-African American) 95.5; Potassium 3.8 mmol/L (3.5-5.1)
[2020-04-16] MEDS: CYANOCOBALAMIN 500 MCG TABLET (VITAMIN B-12) PO SCH (08:26)
[2020-04-16] MEDS: CHOLECALCIFEROL 1,000 UNITS 25 MCG TAB PO SCH (08:27)
[2020-04-16] MEDS: ASCORBIC ACID 500 MG TAB PO SCH (08:27)
[2020-04-16] MEDS: ATORVASTATIN 40 MG TAB PO SCH (08:27)
[2020-04-16] MEDS: SERTRALINE HCL 100 MG TABLET PO SCH (08:27)
[2020-04-16] MEDS: APIXABAN 5 MG TABLET PO SCH (08:28)
[2020-04-16] MEDS: FAMOTIDINE 20 MG TAB PO SCH (08:30)
[2020-04-16] MEDS: POTASSIUM CHLORIDE 10 MEQ TABCR PO SCH (08:31)
[2020-04-16] MEDS ORDERED: dexAMETHasone 4 MG TAB PO SCH (09:00)
--- NOTE | 2020-04-16 12:38 | Discharge Summary ---
Date of Service April 16, 2020 Admission HPI Per Admitting Provider Michelle Mackay is a 59 year old female who presents to the ER with worsening shortness of breath over the past 3 days. Unable to get any history from patient when seen as she was sedated and mechanically ventilated. Discussed history with her over the phone who confirms she has been unwell for the last 3 days with increasing shortness of breath. 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 She also reported cleaning a room which was not thought to be COVID-19 positive but the patient later tested positive. He reports giving her his albuterol inhaler last night and she had a small improvement but was much more short of breath today therefore advised to come to the ER. He denies she was having any fever or chills. In the ER she initially had O2 sats of 96% on 4L (does not use oxygen at home). During her ER course she reportedly had some chest pain and became acutely more short of breath and became pale and diaphoretic. O2 sats decreased and she was placed briefly on BiPAP but continued to desaturate. She quickly continued to get worse on BiPAP and was subsequently intubated. Despite this her O2 sats were 82% with a PEEP 18 and 100% FiO2 with good air entry bilaterally. This was her status on myself entering the room. Initially BP was 130s and she was given 40mg IV lasix by the ER provider due to concern of flash pulmonary edema with IV fluids given previously in setting of COVID-19. Given rapid deterioration in setting of chest pain diagnosis of mucus plugging vs PE entertained. Most likely PE since O2 sats continued to remain low despite intubation with good air entry. IV heparin bolus ordered and given. Her BP subsequently decreased sBP 70s. 1L IV NSS bolus given and decision to give tPA was taken by myself, ER physician and ICU LICENSED PHYSICAL THERAPIST ASSISTANT. Subsequent central line placed by ER physician and patient was started on Levophed for cardiogenic shock. The patient was handed over to the ICU LICENSED PHYSICAL THERAPIST ASSISTANT and will be transfered to the ICU for ongoing care. Hemodynamics and O2 sats subsequently improved after tPA given. Principal Diagnosis COVID 19 pneumonia with suspected central pulmonary embolism, acute respiratory failure Discharge Exam Constitutional well developed, well nourished and comfortable; no acute distress Neck trachea midline, no thyromegaly Respiratory normal respiratory effort, lungs clear to auscultation Cardiovascular RRR, no murmur, no edema Gastrointestinal (Abdomen) normal bowel sounds, soft, nontender, no hepatosplenomegaly Musculoskeletal Head/Neck/Chest: normocephalic and head atraumatic Extremities: extremities normal to inspection Skin no rashes, warm and dry Neurologic CN's II-XI intact bilaterally and awake; no focal motor deficits Psychiatric A+Ox3, euthymic affect Discharge Data Allergies Allergy/AdvReac Type Severity Reaction Status Date / Time No Known Allergies Allergy Unknown Verified 04/10/20 17:24 Consultations 04/10/20 18:24 ED Decision to Admit Stat 04/10/20 19:01 Consult Case Management - Discharge Planning Routine Consult V/Stol Landing Signal Officer Routine Ordered Studies 04/10/20 16:32 CT angio chest PE protocol Urgent Hospital Course (1) Acute respiratory failure with hypoxia: Secondary to ARDS, suspected PE, COVID-19 pneumonia, possible bacterial pneumonia. intubated and proned for the first 24 hours ventilator management per ICU did well with spontaneous breathing trial 04/12, extubated to 3L NC in the afternoon on 04/12 breathing is stable on room air for two days, ambulating in room and hallway without oxygen, no distress safe to discharge to home, stay off work until 04/24/20 (2) Pneumonia due to COVID-19 virus: Dexamethasone 6mg IV daily x 10 days, day 7 change to PO dexamethasone, complete 3 more days at home Convalescent plasma administered on admission Remdesivir - completed 5 day course extubated 04/12 breathing well on room air for two days coughing up sputum, will add flutter valve to use several times a day, it is helping discharge home (3) Pulmonary embolism associated with COVID-19: Suspected based on sudden onset shock in the ER with acute respiratory failure in the setting of chest pain. Unstable to go through CT for PE. Improved hemodynamics and hypoxia after tPA given treated with heparin drip after the tPA now on Apixaban 10mg BID x 7 days then 5mg BID would treat for 12 months checked cost of apixaban, $35/month, she says she can afford this (4) ARDS (adult respiratory distress syndrome): resolved, extubated 04/12 now on room air for two days, no distress Lasix used to keep lungs dry, stopped 04/14 (5) Hypothyroidism: Continue levothyroxine (6) Hyperlipidemia: Restart atorvastatin (7) Depression: Restart sertraline (8) Chest pain: only when coughing Total Time Total Time Spent Total Time Spent (In Minutes): 32 minutes Total Time Includes: Examination of the Patient, Discharge Planning and Medication Reconciliation Discharge Plan Discharge Items Patient Disposition: Home - Self-Care Reason For Visit: Acute Respiratory failure with hypoxia, COVID-19 Discharge Diagnosis: Acute hypoxic respiratory failure Acute pulmonary embolism COVID 19 pneumonia Condition on Discharge: Good Activity: Resume your previous activity Weightbearing: Full weightbearing Non-emergency contact: Primary Care Provider Call non-emergency contact if: you have any medication questions Follow-up/Referrals: Kg Alarcon [Primary Care Provider] - Diet: Regular Addtl Attending Provider Instructions: Medications: - ELIQUIS: take 10mg (two tablets) twice a day for 3 more days, then reduce to 5mg (one tablet) twice a day indefinitely, next dose this evening - DEXAMETHASONE: 6mg daily for three more days, next dose tomorrow morning - TESSALON: take up to three times a day as needed for cough Acute hypoxic respiratory failure, COVID 19 pneumonia as well as suspected large pulmonary embolism responded very well to treatment, extubated and now on room air for a few days you received 7 days of dexamethasone while here, you should complete 3 more days at home you received tPA in the emergency room for low blood pressure and hypoxia and had a great response with rise in blood pressure and oxygen levels treated with heparin drip and then converted to Eliquis 10mg twice a day continue Eliquis 10mg twice a day for 3 more days then 5mg daily would treat for 12 months then it should be safe to stop anticoagulation, blood clots most likely due to COVID 19 infection want you to stay at home, get rest for next week, may return to work on 04/24/20, no restrictions stay well rested, well nourished, well hydrated Pending Studies at Discharge: No Stand-Alone Forms: My [facility], Work/School Release (Inpt), Smoking Cessation Medications and DC Order Prescriptions: New Eliquis 5 mg Tablet 5 mg PO BID 30 Days Qty: 60 RF: 3 dexamethasone 4 mg Tablet 6 mg PO QAM 3 Days Qty: 5 RF: 0 dextromethorphan polistirex [Delsym 12 hour] 30 mg/5 mL Suspension,Extended Rel 12 Hr 5 ml PO Q6H PRN (Reason: cough) Qty: 89 RF: 0 benzonatate [Tessalon Perles] 100 mg Capsule 100 mg PO TID PRN (Reason: cough) 7 Days Qty: 21 RF: 0 Continued cyanocobalamin (vitamin B-12) [Vitamin B-12] 1,000 mcg Tablet 1,000 mcg PO QAM Qty: 0 RF: 0 levothyroxine 75 mcg Tablet 75 mcg PO QAM 90 Days Qty: 90 RF: 3 ascorbic acid (vitamin C) [Vitamin C] 500 mg Tablet 500 mg PO QAM Qty: 0 RF: 0 cholecalciferol (vitamin D3) [Vitamin D3] 25 mcg (1,000 unit) Tablet 1 tab PO QAM 90 Days Qty: 90 RF: 3 atorvastatin 40 mg tablet 40 mg PO QAM RF: 0 sertraline 100 mg tablet 100 mg PO QAM RF: 0 ibuprofen 200 mg Tablet 400 mg PO Q6H PRN (Reason: fever/pain) RF: 0 Discharge Orders: Discharge Order (Routine); Ordered 04/16/20 Ordered By: Kamlesh Nuno/Other Patient Handouts: Apixaban oral tablets Admission Data Admit Date/Time: 04/10/20 19:01 Attending Provider: Kamlesh Kay Admit Provider: Ward Dawson Primary Care Provider: Kg Alarcon Other Providers: Ward Dawson ; Rai Damon Other Interventions: Discharge Summary Assessment (RN) Last Done: 04/16/20 12:58 Coding Level of Care Code D/C Day Management >30 mins Diagnoses Acute respiratory failure with hypoxia J96.01 Pneumonia due to COVID-19 virus U07.1; J12.82 Pulmonary embolism associated with COVID-19 U07.1; I26.99 ARDS (adult respiratory distress syndrome) J80 Hypothyroidism E03.9 Hyperlipidemia E78.5 Depression F32.9 Chest pain R07.9
== END 2020-04-16 14:31 | disposition home or self-care (01) | DRG 208 ==
LOC: ED 14:21 → 2E 19:01 → SUATTDRO 19:01 → 2E 19:56 → 2S 04-13 18:17 → 3E 04-14 14:41

== ENCOUNTER 2023-03-14 14:51 | Observation (INO) ==
--- NOTE | 2023-03-14 15:13 | ED Triage Note ---
Date of Service March 14, 2023 Provider in Triage Author: Christin Garcia History of Present Illness This patient was briefly evaluated while in triage. An abbreviated physical exam was performed. This patient is a 62-year-old Female who presents to the ED for evaluation of tachycardia, referral by Cardiology. Evaluated in OP cardiology office by Dr. Torres. Denies chest pain. Notes chronic SOB, nothing new. Denies history of arrhythmia. History of cardiomyopathy from COVID in 2020. Denies associated dizziness/lightheadedness, presyncope or syncope Physical Exam Constitutional: alert and oriented x3. no acute distress. HEENT: normocephalic, atraumatic. normal conjunctiva.PERRLA. EOM's grossly intact. Respiratory: lungs are clear to auscultation without wheezes, rhonchi, or rales bilaterally. equal chest rise. normal respiratory effort, no accessory muscle use. Cardiovascular: normal heart sounds without murmur. tachycardic GI: abdomen is soft, nontender. No palpable masses. No rebound tenderness or guarding. MSK: moves all 4 extremities spontaneously Psych:appropriate mood and affect. Initial orders for labs and / or imaging were placed and patient was taken to treatment room immediately. Please see further documentation for the full ED course.
[2023-03-14 15:41] LABS: Appearance Urine Clear (Clear); Bacteria Urine Automated Negative (Negative); Bilirubin Urine Negative (Negative); Blood Urine 1+ (Negative); Color Urine Yellow; Glucose Urine UA Negative (Negative); Ketones Urine Negative (Negative); Leukocyte Esterase Urine Trace (Negative); Nitrite Urine Negative (Negative); Protein Urine Negative (Negative); RBC Urine Automated 0-4 /hpf (0-4); Specific Gravity Urine 1.012 (1.000-1.030); Urobilinogen Urine Negative (Negative); pH Urine 5.5 (4.5-7.5)
[2023-03-14 15:55] LABS: Basophils # (auto) 0.06 K/uL (0.00-0.20); Basophils % (auto) 0.9 %; Hematocrit (blood only) 42.1 % (37.0-47.0); Hemoglobin 13.9 g/dl (12.0-16.0); Immature Granulocytes # (auto) 0.03 K/uL (0.01-0.20); Immature Granulocytes % (auto) 0.5 %; Lymphocytes # (auto) 1.84 K/uL (1.20-3.40); Mean Corpuscular Hemoglobin 29.2 pg (25.0-34.0); Mean Corpuscular Volume 88.4 fL (80.0-100.0); Mean Platelet Volume 9.2 fL (9.4-12.4); Monocytes # (auto) 0.52 K/uL (0.11-0.59); Monocytes % (auto) 7.9 %; Neutrophils # (auto) 3.93 K/uL (1.40-6.50); Neutrophils % (auto) 59.7 %; Platelet Count 299 K/uL (130-400); RDW Coefficient of Variation 12.2 % (11.5-14.5); RDW Standard Deviation 39.4 fL (36.4-46.3); Red Blood Count 4.76 M/uL (4.20-5.40); White Blood Count 6.58 K/ul (4.8-10.8)
--- NOTE | 2023-03-14 15:56 | Electrocardiogram Report ---
Test Reason : Blood Pressure : / mmHG Vent. Rate : 146 BPM Atrial Rate : 000 BPM P-R Int : 000 ms QRS Dur : 074 ms QT Int : 332 ms P-R-T Axes : 000 071 016 degrees QTc Int : 517 ms Probable Supraventricular tachycardia Low voltage QRS T wave abnormality, consider anterior ischemia Abnormal ECG When compared with ECG of 13-APR-2020 10:08, T wave inversion now evident in Inferior leads T wave inversion now evident in Anterior leads Nonspecific T wave abnormality, improved in Lateral leads Confirmed by Shiv Escamilla ([id number]) on 03/14/2023 3:56:04 PM Referred By: REFERRED SELF Confirmed By:Shiv Escamilla
[2023-03-14 16:08] LABS: INR 0.9 (0.9-1.1); Partial Thromboplastin Ratio 0.7; Partial Thromboplastin Time 20 Seconds (21-31); Prothrombin Time 10.2 Seconds (9.0-12.0)
[2023-03-14] MEDS ORDERED: METOPROLOL TARTRATE 1 MG/ML VIAL IV STA ×3 (16:11→17:53)
[2023-03-14] MEDS ORDERED: SODIUM CHLORIDE 0.9% 500 ML IV ONE ×2 (16:11→17:53)
--- NOTE | 2023-03-14 16:16 | XRay Report ---
XR chest 1V not portable HISTORY: 62 years-old Female Chest pain, nonspecific COMPARISON: 04/26/2021 TECHNIQUE: AP view of the chest FINDINGS: Cardiomediastinal and hilar silhouettes are unchanged. Emphysema with chronic interstitial coarsening . No pneumothorax, pleural effusion or airspace consolidation. Bones appear grossly intact. Healed ch ronic left clavicular fracture deformity. Atherosclerosis of the aorta. IMPRESSION: Emphysema without acute process of the chest. ACT 112: Negative or not required by law. The above report was generated using voice recognition software. It may contain grammatical, syntax o r spelling errors. Electronically signed by: González Manzano M.D. 03/14/2023 4:14 PM
[2023-03-14 16:17] LABS: D Dimer 540 ug/L FEU (0-500)
[2023-03-14 16:22] LABS: Alanine Aminotransferase 19 U/L (7-52); Albumin Globulin Ratio 1.4 (0.9-2); Albumin Level 4.5 gm/dl (3.4-5.0); Alkaline Phosphatase 71 U/L (34-104); BUN Creatinine Ratio 28.9 (10-20); Bilirubin,Total 0.4 mg/dl (0.2-1.0); Blood Urea Nitrogen 26 mg/dl (6-23); Calcium 9.3 mg/dl (8.6-10.3); Carbon Dioxide 22 mmol/L (21-32); Chloride 106 mmol/L (98-107); Creatinine Clr Calc Pharmacy 55.7 ml/min; Est GFR (African American) 78.9 ml/min; Globulin 3.2 gm/dl (2.5-4.0); Glucose 115 mg/dl (70-99(Fasting)); Lipase 44 U/L (11-82); Total Protein 7.7 gm/dl (6.0-8.3); Troponin I High Sensitivity < 2.3 pg/ml (0-14)
[2023-03-14] MEDS ORDERED: OPTIRAY 320 125ml IV ONE (17:20)
--- NOTE | 2023-03-14 17:34 | CT Scan Report ---
CT ANGIOGRAPHY OF THE CHEST, PULMONARY EMBOLUS PROTOCOL CLINICAL HISTORY: Shortness of breath. Tachycardia. Evaluate for pulmonary embolus. COMPARISON STUDY: Chest CT April 16, 2021 chest radiograph performed earlier today. TECHNIQUE: Following IV administration of 119 mL of Optiray, helical axial images of the chest were o btained utilizing the pulmonary embolus protocol. Maximal intensity projections and sagittal and cor onal reformats were viewed on an independent 3D workstation. IV contrast was administered without co mplication. Automated exposure control was utilized for the study. A dose lowering technique was ut ilized adhering to the principles of ALARA. CT DOSE: 641.29 mGy.cm FINDINGS: No pulmonary emboli are identified. There is no pericardial effusion. A prominent right hi lar lymph node is unchanged since prior CT of April 26, 2021. Moderate coronary artery calcificatio ns are present. Size of the heart is at the upper limits of normal. There is no pneumothorax or pleur al effusion. There is no consolidation to suggest pneumonia. Moderate upper lobe predominant emphysem a is present. No acute fractures within the bony thorax are noted. There is reflux of contrast into t he IVC and hepatic veins. IMPRESSION: 1. No pulmonary emboli identified. 2. No acute intrathoracic findings. ACT 112: Negative or not required by law. Electronically signed by: Peter Lewis M.D. 03/14/2023 5:32 PM
[2023-03-14 17:35] LABS: Magnesium 1.8 mg/dl (1.7-2.4); Phosphorus 3.8 mg/dl (2.5-4.9); Potassium 3.7 mmol/L (3.5-5.1)
--- NOTE | 2023-03-14 19:48 | Emergency Department Note ---
Impression & Plan Paroxysmal atrial flutter, Atrial flutter with rapid ventricular response, History of cardiomyopathy ED Provider Note NAME: RADHA CANALES AGE: 62 SEX: F ARRIVES VIA: Walk-In INFORMANT: Patient ED PROVIDER(S): Kelechi Cruz MD CHIEF COMPLAINT: Tachycardia, referred. PLAN: Disposition: Admit MEDICAL DECISION MAKING: The patient is a pleasant 62-year-old woman with a past medical history of nonischemic cardiomyopathy in setting of COVID-19, history of PE in setting of COVID-19 no longer on anticoagulation, GERD, hyperlipidemia, hypothyroidism who presents emergency department via walk-in accompanied by her referred from her cardiology office for tachycardia in the 140s with ?SVT vs Aflutter, which was noted on her evaluation which was a routine scheduled appointment for her history of cardiomyopathy which has of her last echo in 2021 had normalized. Vagal maneuvers were attempted but were unsuccessful and so the patient was referred for further management. Given the patient was asymptomatic she travel by private vehicle with her . The patient denies feeling any palpitations or heart racing. She denies any dizziness, chest pain, shortness of breath beyond which she feels is chronic since her COVID-19 illness. She reports she does take metoprolol twice daily, though her medication record demonstrates 200 mg of metoprolol succinate daily. On my evaluation the patient is no distress, afebrile with heart rate in the 140s and blood pressure 90s/60s but mentating normally vital signs otherwise stable. She appears euvolemic to dry. EKG on arrival demonstrates narrow complex tachycardia in the 140s and reflect SVT though suspect possible underlying a flutter. Chest x-ray negative for acute cardiopulmonary process per my independent preliminary interpretation. WBC, H/H and platelets within normal limits. Chemistry without metabolic acidosis. Electrolytes without significant abnormality. LFTs unremarkable. High-sensitivity troponin was undetectable. Lipase not elevated. UA without convincing evidence of infection. Patient was treated with 500 cc of normal saline and 5 mg IV Lopressor with some improvement in her heart rate to the 130s though gradually again returning to the 140s. CTA of the chest was performed and was negative for pulmonary embolism. No consolidation to suggest pneumonia is seen. Reflux of IV contrast into the IVC and hepatic veins is noted likely related to the patient's RVR. Patient subsquently received an additional 5 mg of IV Lopressor x 2 (a total of 15 mg of IV Lopressor had been administered) and subsequently cardioverted to normal sinus rhythm. Upon reevaluation the patient reported that she felt no difference from before as she was asymptomatic. Given suspicion for paroxysmal atrial flutter she does agree with admission for further evaluation and management. Case was discussed with Dr. Villafana [facility] hospitalist, who will evaluate the patient for admission. Triage Nursing notes reviewed and agree them. Prior/external medical records reviewed Vital Signs: reviewed Differential diagnosis: Premature contractions, electrolyte abnormality, cardiac dysrhythmia, thyroid dysfunction, pulmonary embolism, infection, gastrointestinal, as well as other pathologies. ER treatment provided: See below. Diagnostics interpreted by me: ECG: Narrow complex tachycardia, 146 bpm, SVT versus atrial flutter, no overt ST elevation or depression, QTc 517, QRS 74. Cardiac Monitoring: An order for continuous cardiac monitoring was placed and demonstrated suspected atrial flutter with RVR, 146 bpm Laboratory studies: See below Imaging studies: See below Consultation(s): Case was discussed with Dr. Villafana [facility] hospitalist, who will evaluate the patient for admission. HPI: The patient is a pleasant 62-year-old woman with a past medical history of nonischemic cardiomyopathy in setting of COVID-19, history of PE in setting of COVID-19 no longer on anticoagulation, GERD, hyperlipidemia, hypothyroidism who presents emergency department via walk-in accompanied by her referred from her cardiology office for tachycardia in the 140s which was noted on her evaluation which was a routine scheduled appointment for her history of cardiomyopathy which has of her last echo in 2021 had normalized. Vagal maneuvers were attempted for possibility of SVT but were unsuccessful and so the patient was further management. Given the patient was asymptomatic she travel by private vehicle with her . The patient denies feeling any palpitations or heart racing. She denies any dizziness, chest pain, shortness of breath beyond which she feels is chronic since her COVID-19 illness. She reports she does take metoprolol twice daily, though her medication record demonstrates 200 mg of metoprolol succinate daily. ROS: See above HPI for pertinent positives & negatives. A total of 10 systems reviewed and were otherwise negative. VITALS:See Below PHYSICAL EXAMINATION: GENERAL: Awake, alert, well-appearing, in no distress HENT: Normocephalic, atraumatic. Oropharynx with dry mucous membranes and otherwise unremarkable. EYES: Normal conjunctiva. Sclera non-icteric. NECK: Supple. No nuchal rigidity. FROM. No JVD. RESPIRATORY: Clear to auscultation. CARDIAC: Tachycardic abdomen) rate, normal rhythm. Extremities warm and well perfused. Pulses equal. ABDOMEN: Soft, non-distended. No tenderness to palpation. No rebound or guarding. No masses. RECTAL: Deferred. MUSCULOSKELETAL: Chest examination reveals no tenderness. The back is symmetrical on inspection without obvious abnormality. There is no CVA tenderness to palpation. No joint edema. LOWER EXTREMITIES: Calves are equal size bilaterally and non-tender. No edema. No discoloration. NEURO: Normal sensorium. No sensory or motor deficits noted. SKIN: No rash or jaundice noted. ED COURSE: Critical Care: I have personally spent greater than 45 minutes of critical care time in the direct management of this patient. This includes bedside care, interpretation of diagnostic studies, and testing, discussion with consultants, patient, and family members, and other required patient management activities. This 45 minutes is in excess of all separately billable procedures. Kelechi Cruz MD Past Med/Surg History Medical History Sensorineural hearing loss of both ears Tinnitus, bilateral History of pulmonary embolism (04/2020) presumed during COVID illness (no documented imaging) Chronic systolic CHF (congestive heart failure) Due to COVID Cardiomyopathy DUE TO COVID Vitamin B12 deficiency ARDS (adult respiratory distress syndrome) due to COVID Depression Hyperlipidemia Pneumonia due to COVID-19 virus (04/2020) Acute respiratory failure with hypoxia (04/2020) HX COVID 2020 - had blood clot in lung and on ventilator in [facility] Hypothyroidism Surgical History S/P endometrial ablation (2009) S/P total knee replacement (01/2017) L knee History of carpal tunnel surgery bilateral H/O cataract removal with insertion of prosthetic lens bilateral History of bladder surgery Bladder Tack Status post tubal ligation Family History Mother Myocardial infarction, Onset Age: 30 Coronary heart disease Diabetes Hypertension Father Liver cirrhosis Alcoholism Brother No problems noted. Sister Thyroid disease Denies family history of Ovarian cancer Prostate cancer Breast cancer Colorectal cancer Social History Smoking Status: Never smoker Tobacco Type: Cigarettes Age Started Using Tobacco: 12; Age Quit Using Tobacco: 50; packs per day: 1.5; Cigarettes Per Day: 1.2FQNe30 YEARS; Second Hand Exposure: No; Do You Dip or Chew Tobacco: No; Hx Alcohol Use: Yes Alcohol type: beer Alcohol Intake Frequency: 4 or More x per/Week Alcohol Intake Frequency Comment: daily Hx Substance Use: No Preferred Language: Macanese Communication Ability: Effective Visual Impairment: No Limitations Hearing Ability: Normal Barrel Marker Required: No Beliefs That Will Affect Care: None marital status: Current Living Situation: Spouse current occupational status: employed current occupation: [employer] How many Children do You have: 4 How many Children do You have Comment: and 2 step sons Feels Safe at Home: Yes Childhood Exposure to Second-Hand Smoke: Yes (father ) Diet: regular caffeine: Yes during the past year weight has: remained stable Dental Care, Regularly: Yes Physical Activity Frequency: Does not Exercise Seatbelt Use: always Sunscreen Use: No Assistive Devices: None Allergies Allergies Allergy/AdvReac Type Severity Reaction Status Date / Time No Known Drug Allergies Allergy Verified 03/14/23 14:28 Home Meds Home Medications Medication Instructions Recorded Confirmed metoprolol succinate 100 mg 200 mg PO QAM 06/03/22 03/14/23 tablet,extended release 24 hr multivitamin 1 tab PO QAM 06/03/22 03/14/23 tiotropium bromide 2.5 2 puff inhalation QAM 06/03/22 03/14/23 mcg/actuation mist for inhalation (Spiriva Respimat) Previous Rx's Medication Instructions Recorded spironolactone 25 mg tablet 25 mg PO QAM #90 tabs 10/01/22 atorvastatin 40 mg tablet 40 mg PO QAM #90 tabs 10/07/22 sacubitril 97 mg-valsartan 103 mg 1 tab PO BID #180 tabs 11/18/22 tablet (Entresto) levothyroxine 100 mcg tablet 100 mcg PO QAM #90 tabs 12/11/22 furosemide 20 mg tablet 20 mg PO QAM #90 tabs 11/30/23 Results & Data (ED) Vital Signs Vital Signs - 24 hr 03/14/23 15:10 03/14/23 15:34 03/14/23 16:00 Temperature 36.7 C Temperature Source Temporal Artery Scan Pulse Rate 147 H 149 H 146 H Pulse Rate [Apical] Pulse Rate from SpO2 Sensor 146 H Respiratory Rate 18 16 Respiratory Effort / Characteristics Non-Labored Spontaneous Respiratory Depth Normal Respiratory Pattern Blood Pressure 157/111 H 95/73 L Blood Pressure [Right Arm] Blood Pressure Mean 126 80 Blood Pressure Mean [Right Arm] Blood Pressure Position Sitting Pulse Oximetry 94 92 Oxygen Delivery Method Room Air Sepsis Recent Fever Within 48 Hours No Sepsis New/Unexplained Change in Mental Status No Sepsis Action Taken by Nursing No Action Required 03/14/23 16:29 03/14/23 16:30 03/14/23 16:33 Temperature Temperature Source Pulse Rate 144 H 144 H 144 H Pulse Rate [Apical] Pulse Rate from SpO2 Sensor 144 H 144 H Respiratory Rate 22 20 Respiratory Effort / Characteristics Respiratory Depth Respiratory Pattern Blood Pressure 142/95 H 123/95 123/95 Blood Pressure [Right Arm] Blood Pressure Mean 110 104 Blood Pressure Mean [Right Arm] Blood Pressure Position Pulse Oximetry 97 93 Oxygen Delivery Method Sepsis Recent Fever Within 48 Hours Sepsis New/Unexplained Change in Mental Status Sepsis Action Taken by Nursing 03/14/23 17:00 03/14/23 17:30 03/14/23 17:46 Temperature Temperature Source Pulse Rate 139 H 138 H 137 H Pulse Rate [Apical] Pulse Rate from SpO2 Sensor 140 H 138 H 138 H Respiratory Rate 22 23 20 Respiratory Effort / Characteristics Respiratory Depth Respiratory Pattern Blood Pressure 110/70 117/88 106/79 Blood Pressure [Right Arm] Blood Pressure Mean 83 97 88 Blood Pressure Mean [Right Arm] Blood Pressure Position Pulse Oximetry 94 94 95 Oxygen Delivery Method Sepsis Recent Fever Within 48 Hours Sepsis New/Unexplained Change in Mental Status Sepsis Action Taken by Nursing 03/14/23 17:49 03/14/23 18:16 03/14/23 18:20 Temperature Temperature Source Pulse Rate 141 H 140 H 140 H Pulse Rate [Apical] Pulse Rate from SpO2 Sensor 136 H Respiratory Rate 18 Respiratory Effort / Characteristics Respiratory Depth Respiratory Pattern Blood Pressure 106/79 129/99 129/99 Blood Pressure [Right Arm] Blood Pressure Mean 109 Blood Pressure Mean [Right Arm] Blood Pressure Position Pulse Oximetry 95 Oxygen Delivery Method Sepsis Recent Fever Within 48 Hours Sepsis New/Unexplained Change in Mental Status Sepsis Action Taken by Nursing 03/14/23 18:42 03/14/23 19:56 03/14/23 20:37 Temperature Temperature Source Pulse Rate 79 72 Pulse Rate [Apical] Pulse Rate from SpO2 Sensor Respiratory Rate Respiratory Effort / Characteristics Respiratory Depth Respiratory Pattern Blood Pressure Blood Pressure [Right Arm] Blood Pressure Mean Blood Pressure Mean [Right Arm] Blood Pressure Position Pulse Oximetry 97 Oxygen Delivery Method Room Air Sepsis Recent Fever Within 48 Hours Sepsis New/Unexplained Change in Mental Status Sepsis Action Taken by Nursing 03/14/23 20:37 03/14/23 20:37 03/14/23 22:00 Temperature Temperature Source Pulse Rate Pulse Rate [Apical] 79 81 Pulse Rate from SpO2 Sensor Respiratory Rate 20 16 Respiratory Effort / Characteristics Non-Labored Spontaneous Non-Labored Spontaneous Respiratory Depth Normal Normal Respiratory Pattern Regular Regular Blood Pressure Blood Pressure [Right Arm] 144/76 H 108/84 Blood Pressure Mean Blood Pressure Mean [Right Arm] 98 92 Blood Pressure Position Pulse Oximetry 97 97 95 Oxygen Delivery Method Room Air Room Air Room Air Sepsis Recent Fever Within 48 Hours Sepsis New/Unexplained Change in Mental Status Sepsis Action Taken by Nursing 03/14/23 22:36 Temperature Temperature Source Pulse Rate 83 Pulse Rate [Apical] Pulse Rate from SpO2 Sensor Respiratory Rate Respiratory Effort / Characteristics Respiratory Depth Respiratory Pattern Blood Pressure Blood Pressure [Right Arm] Blood Pressure Mean Blood Pressure Mean [Right Arm] Blood Pressure Position Pulse Oximetry Oxygen Delivery Method Sepsis Recent Fever Within 48 Hours Sepsis New/Unexplained Change in Mental Status Sepsis Action Taken by Nursing Laboratory Data Attestation: I reviewed the patient's lab results. 03/14/23 15:22 03/14/23 16:59 Lab Results 03/14/23 03/14/23 03/14/23 Range/Units 15:17 15:22 16:59 WBC 6.58 (4.8-10.8) K/ul RBC 4.76 (4.20-5.40) M/uL Hgb 13.9 (12.0-16.0) g/dl Hct 42.1 (37.0-47.0) % MCV 88.4 (80.0-100.0) fL MCH 29.2 (25.0-34.0) pg MCHC 33.0 (32.0-36.0) g/dL RDW Std Deviation 39.4 (36.4-46.3) fL RDW Coeff of Julia 12.2 (11.5-14.5) % Plt Count 299 (130-400) K/uL MPV 9.2 L (9.4-12.4) fL Immature Gran % (Auto) 0.5 % Neut % (Auto) 59.7 % Lymph % (Auto) 28.0 % [place] % (Auto) 7.9 % Eos % (Auto) 3.0 % Baso % (Auto) 0.9 % Neut # (Auto) 3.93 (1.40-6.50) K/uL Lymph # (Auto) 1.84 (1.20-3.40) K/uL [place] # (Auto) 0.52 (0.11-0.59) K/uL Eos # (Auto) 0.20 (0.00-0.50) K/uL Baso # (Auto) 0.06 (0.00-0.20) K/uL Immature Gran # (Auto) 0.03 (0.01-0.20) K/uL PT 10.2 (9.0-12.0) Seconds INR 0.9 (0.9-1.1) APTT 20 L (21-31) Seconds PTT Ratio 0.7 D-Dimer 540 H* (0-500) ug/L FEU Sodium TNP 140 Potassium TNP 3.7 Chloride 106 (98-107) mmol/L Carbon Dioxide 22 (21-32) mmol/L Anion Gap TNP BUN 26 H (6-23) mg/dl Creatinine 0.90 (0.6-1.2) mg/dl Est Cr Clr Drug Dosing 55.7 ml/min Est GFR ( Amer) 78.9 ml/min Est GFR (Non-Af Amer) 68.0 ml/min BUN/Creatinine Ratio 28.9 H (10-20) Glucose 115 H (70-99(Fasting)) mg/dl Calcium 9.3 (8.6-10.3) mg/dl Phosphorus 3.8 (2.5-4.9) mg/dl Magnesium 1.8 (1.7-2.4) mg/dl Total Bilirubin 0.4 (0.2-1.0) mg/dl AST TNP 18 ALT 19 (7-52) U/L Alkaline Phosphatase 71 (34-104) U/L Troponin I High Sens < 2.3 (0-14) pg/ml Total Protein 7.7 (6.0-8.3) gm/dl Albumin 4.5 (3.4-5.0) gm/dl Globulin 3.2 (2.5-4.0) gm/dl Albumin/Globulin Ratio 1.4 (0.9-2) Lipase 44 (11-82) U/L Urine Color Yellow Urine Appearance Clear (Clear) Urine pH 5.5 (4.5-7.5) Ur Specific [place] 1.012 (1.000-1.030) Urine Protein Negative (Negative) Urine Glucose (UA) Negative (Negative) Urine Ketones Negative (Negative) Urine Blood 1+ H (Negative) Urine Nitrite Negative (Negative) Urine Bilirubin Negative (Negative) Urine Urobilinogen Negative (Negative) Ur Leukocyte Esterase Trace H (Negative) Urine WBC (Auto) 1-5 (0-5) /hpf Urine RBC (Auto) 0-4 (0-4) /hpf U Hyaline Cast (Auto) 1-5 (0-5) /lpf U Epithel Cells (Auto) 10-20 H (0-5) /lpf Urine Bacteria (Auto) Negative (Negative) Ur Renal Epithelial Cell Urine Crystals Calcium Oxalate Crystal Uric Acid Crystals Triple Phos Crystals Other Crystals Amorphous Sediment Granular Casts Waxy Casts RBC Casts WBC Casts Other Casts Urine Mucus Urine Other Urine Trichomonas Urine Yeast Urine Sperm Ur Oval Fat Bodies 03/14/23 Range/Units Unknown WBC (4.8-10.8) K/ul RBC (4.20-5.40) M/uL Hgb (12.0-16.0) g/dl Hct (37.0-47.0) % MCV (80.0-100.0) fL MCH (25.0-34.0) pg MCHC (32.0-36.0) g/dL RDW Std Deviation (36.4-46.3) fL RDW Coeff of Julia (11.5-14.5) % Plt Count (130-400) K/uL MPV (9.4-12.4) fL Immature Gran % (Auto) % Neut % (Auto) % Lymph % (Auto) % [place] % (Auto) % Eos % (Auto) % Baso % (Auto) % Neut # (Auto) (1.40-6.50) K/uL Lymph # (Auto) (1.20-3.40) K/uL [place] # (Auto) (0.11-0.59) K/uL Eos # (Auto) (0.00-0.50) K/uL Baso # (Auto) (0.00-0.20) K/uL Immature Gran # (Auto) (0.01-0.20) K/uL PT (9.0-12.0) Seconds INR (0.9-1.1) APTT (21-31) Seconds PTT Ratio D-Dimer (0-500) ug/L FEU Sodium Potassium Chloride (98-107) mmol/L Carbon Dioxide (21-32) mmol/L Anion Gap BUN (6-23) mg/dl Creatinine (0.6-1.2) mg/dl Est Cr Clr Drug Dosing ml/min Est GFR ( Amer) ml/min Est GFR (Non-Af Amer) ml/min BUN/Creatinine Ratio (10-20) Glucose (70-99(Fasting)) mg/dl Calcium (8.6-10.3) mg/dl Phosphorus (2.5-4.9) mg/dl Magnesium (1.7-2.4) mg/dl Total Bilirubin (0.2-1.0) mg/dl AST ALT (7-52) U/L Alkaline Phosphatase (34-104) U/L Troponin I High Sens (0-14) pg/ml Total Protein (6.0-8.3) gm/dl Albumin (3.4-5.0) gm/dl Globulin (2.5-4.0) gm/dl Albumin/Globulin Ratio (0.9-2) Lipase (11-82) U/L Urine Color Cancelled Urine Appearance Cancelled (Clear) Urine pH Cancelled (4.5-7.5) Ur Specific [place] Cancelled (1.000-1.030) Urine Protein Cancelled (Negative) Urine Glucose (UA) Cancelled (Negative) Urine Ketones Cancelled (Negative) Urine Blood Cancelled (Negative) Urine Nitrite Cancelled (Negative) Urine Bilirubin Cancelled (Negative) Urine Urobilinogen Cancelled (Negative) Ur Leukocyte Esterase Cancelled (Negative) Urine WBC (Auto) Cancelled (0-5) /hpf Urine RBC (Auto) Cancelled (0-4) /hpf U Hyaline Cast (Auto) Cancelled (0-5) /lpf U Epithel Cells (Auto) Cancelled (0-5) /lpf Urine Bacteria (Auto) Cancelled (Negative) Ur Renal Epithelial Cell Cancelled Urine Crystals Cancelled Calcium Oxalate Crystal Cancelled Uric Acid Crystals Cancelled Triple Phos Crystals Cancelled Other Crystals Cancelled Amorphous Sediment Cancelled Granular Casts Cancelled Waxy Casts Cancelled RBC Casts Cancelled WBC Casts Cancelled Other Casts Cancelled Urine Mucus Cancelled Urine Other Cancelled Urine Trichomonas Cancelled Urine Yeast Cancelled Urine Sperm Cancelled Ur Oval Fat Bodies Cancelled Administered Medications Discontinued Medications Sodium Chloride (Nss) 500 mls @ 999 mls/hr IV .Q31M ONE Stop: 03/14/23 16:41 Last Infusion: 03/14/23 18:59 Dose: Infused Documented By: Admin: 03/14/23 16:34 Dose: 999 mls/hr Documented By: ANIL Sodium Chloride (Nss) 500 mls @ 999 mls/hr IV .Q31M ONE Stop: 03/14/23 18:23 Last Infusion: 03/14/23 18:59 Dose: Infused Documented By: Admin: 03/14/23 18:20 Dose: 999 mls/hr Documented By: ANIL Magnesium Sulfate/Dextrose (Magnesium Sulfate / D5w) 1 gm in 100 mls @ 50 mls/hr IV ONE ONE Stop: 03/14/23 22:50 Last Admin: 03/14/23 21:49 Dose: 50 mls/hr Documented By: MARICHUY Ioversol (Optiray 320 125ml) 119 ml IV ONCE ONE Stop: 03/14/23 17:21 Last Admin: 03/14/23 17:21 Dose: 119 ml Documented By: JESSICA Metoprolol Tartrate (Metoprolol Tartrate 1 Mg/Ml Vial) 5 mg IV NOW STA Stop: 03/14/23 16:12 Last Admin: 03/14/23 16:33 Dose: 5 mg Documented By: ANIL Metoprolol Tartrate (Metoprolol Tartrate 1 Mg/Ml Vial) 5 mg IV NOW STA Stop: 03/14/23 17:31 Last Admin: 03/14/23 17:49 Dose: 5 mg Documented By: ANIL Metoprolol Tartrate (Metoprolol Tartrate 1 Mg/Ml Vial) 5 mg IV NOW STA Stop: 03/14/23 17:54 Last Admin: 03/14/23 18:20 Dose: 5 mg Documented By: ANIL Potassium Chloride (Potassium Chloride Crtab 20 Meq Tabcr) 40 meq PO NOW STA Stop: 03/14/23 20:52 Last Admin: 03/14/23 21:50 Dose: 40 meq Documented By: MARICHUY Sacubitril/Valsartan (Valsartan/Sacubitril 103/97mg Tab) 1 tab PO ONCE ONE Stop: 03/14/23 20:57 Last Admin: 03/14/23 21:50 Dose: 1 tab Documented By: MARICHUY Imaging Data Radiologist's Impression: Chest X-Ray 03/14/23 15:14 XR chest 1V not portable HISTORY: 62 years-old Female Chest pain, nonspecific COMPARISON: 04/26/2021 TECHNIQUE: AP view of the chest FINDINGS: Cardiomediastinal and hilar silhouettes are unchanged. Emphysema with chronic interstitial coarsening. No pneumothorax, pleural effusion or airspace consolidation. Bones appear grossly intact. Healed chronic left clavicular fracture deformity. Atherosclerosis of the aorta. IMPRESSION: Emphysema without acute process of the chest. ACT 112: Negative or not required by law. The above report was generated using voice recognition software. It may contain grammatical, syntax or spelling errors. Electronically signed by: González Manzano M.D. 03/14/2023 4:14 PM Chest CTA 03/14/23 16:12 CT ANGIOGRAPHY OF THE CHEST, PULMONARY EMBOLUS PROTOCOL CLINICAL HISTORY: Shortness of breath. Tachycardia. Evaluate for pulmonary embolus. COMPARISON STUDY: Chest CT April 16, 2021 chest radiograph performed earlier today. TECHNIQUE: Following IV administration of 119 mL of Optiray, helical axial images of the chest were obtained utilizing the pulmonary embolus protocol. Maximal intensity projections and sagittal and coronal reformats were viewed on an independent 3D workstation. IV contrast was administered without complication. Automated exposure control was utilized for the study. A dose lowering technique was utilized adhering to the principles of ALARA. CT DOSE: 641.29 mGy.cm FINDINGS: No pulmonary emboli are identified. There is no pericardial effusion. A prominent right hilar lymph node is unchanged since prior CT of April 26, 2021. Moderate coronary artery calcifications are present. Size of the heart is at the upper limits of normal. There is no pneumothorax or pleural effusion. There is no consolidation to suggest pneumonia. Moderate upper lobe predominant emphysema is present. No acute fractures within the bony thorax are noted. There is reflux of contrast into the IVC and hepatic veins. IMPRESSION: 1. No pulmonary emboli identified. 2. No acute intrathoracic findings. ACT 112: Negative or not required by law. Electronically signed by: Peter Lewis M.D. 03/14/2023 5:32 PM Discharge Plan Visit Data Chief Complaint: Tachycardia Stated Complaint: TACHYCARDIA ED Provider: Kelechi Cruz Discharge Problem: Paroxysmal atrial flutter, Atrial flutter with rapid ventricular response, History of cardiomyopathy Discharge Instructions Interventions: ED Discharge Assessment Last Done: 03/14/23 22:34 Forms Stand Alone Forms: [facility] [employer] Prescriptions Prescriptions: No Action spironolactone 25 mg tablet 25 mg PO QAM Qty: 90 3RF atorvastatin 40 mg tablet 40 mg PO QAM Qty: 90 1RF Entresto 97-103 mg tablet 1 tab PO BID Qty: 180 3RF levothyroxine 100 mcg tablet 100 mcg PO QAM Qty: 90 0RF furosemide 20 mg tablet 20 mg PO QAM Qty: 90 3RF multivitamin Tablet 1 tab PO QAM metoprolol succinate 100 mg tablet extended release 24 hr 200 mg PO QAM Spiriva Respimat 2.5 mcg/actuation mist 2 puff inhalation QAM Referrals Referrals: Renae Pickens DO [Primary Care Provider] -
[2023-03-14] MEDS ORDERED: MAGNESIUM SULFATE / D5W 1 GM/100 ML BAG IV ONE (20:51)
[2023-03-14] MEDS ORDERED: POTASSIUM CHLORIDE CRTAB 20 MEQ TABCR PO STA (20:51)
[2023-03-14] MEDS ORDERED: VALSARTAN/SACUBITRIL 103/97MG TAB PO ONE (20:56)
--- NOTE | 2023-03-14 21:00 | History & Physical Report ---
Date of Service March 14, 2023 Assessment & Plan (1) History of cardiomyopathy: (2) Atrial flutter with rapid ventricular response: (3) Paroxysmal atrial flutter: (4) GERD (gastroesophageal reflux disease): (5) Chronic systolic CHF (congestive heart failure): (6) Cardiomyopathy: (7) Hyperlipidemia: (8) Hypothyroidism: (9) Vitamin B12 deficiency: Plan Paroxysmal atrial flutter with RVR/COVID-19 cardiomyopathy/CHF- Patient received a total of 3 doses of Lopressor 5 mg IV, and normal saline 500 mill boluses x 2 from the ED, with improved rate control into normal sinus rhythm in the 80s and 90s The patient will be admitted to telemetry for serial cardiac enzymes, serial EKG's, cardiac rhythm monitoring and a 2-D echocardiogram with Dopplers. Most recent echocardiogram from 02/14/2022 with improved ejection fraction returned to 55-60% Continue metoprolol succinate 100 mg p.o. every morning, and Entresto 97/103, p.o. twice daily Hold furosemide and spironolactone Lopressor 5 mg IV every 4 hours as needed for heart rate greater than 110 Patient may require additional fluid boluses overnight Consult cardiology Electrolytes- Potassium 3.7 and magnesium 1.8 in the ED Will give Klor-Con 40 mEq p.o. x 1, and mag sulfate 1 g IV, and recheck laboratories in a.m. History of pulmonary embolism- Secondary to COVID-19 infection in April 2020 requiring intubation and proning Was discharged on anticoagulation Eliquis at that time which has since been discontinued D-dimer elevated at 540 today CTA negative for PE this evening Patient did have a recurrence of rapid HR overnight around 2:00 AM Will give lopressor 5mg IV, and metoprolol succinate 50mg po, may need to modify am dose of metoprolol succinate which is typically 200mg With improved EF of 55-60%, may be better off with metoprolol succinate 100 mg p.o. twice daily, and decreasing and/or stopping Entresto dosing. Will start patient on heparin drip Will leave long-term decisions to cardiology and after rechecking echocardiogram in a.m. 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 Torres, after presenting there for routine visit earlier today, and found to be in a rapid heart rhythm with question of SVT versus atrial flutter without symptomatology Primary Care Provider: Renae Pickens DO The patient is a 62-year-old female with a past medical history including cardiomyopathy, GERD, mitral regurgitation, pulmonary embolism associated with COVID-19 infection on 04/27, CHF, depression, hyperlipidemia, hypothyroidism and B12 deficiency. The patient had contracted COVID-19 infection during 04/27, and associated with that had an admission for acute respiratory failure with pulmonary embolism, that required ventilator and proning, and during that admission was noted to have developed cardiomyopathy with decreased ejection fraction. The patient has continue to follow with cardiology for routine visit since that time, and today at a routine cardiology visit, was found to be in a rapid heart rate with question of SVT versus atrial flutter, and was referred by cardiology to the ED for further assessment and admission. The patient reports that she had no sensations of palpitations or chest pain, but does in retrospect feel that she was having some occasional issues with transient lightheadedness for an unknown period of time. Allergies Allergy/AdvReac Type Severity Reaction Status Date / Time No Known Drug Allergies Allergy Verified 03/14/23 14:28 Home Medications Medication Instructions Recorded Confirmed Type metoprolol succinate 100 mg 200 mg PO QAM 06/03/22 03/14/23 History tablet,extended release 24 hr multivitamin 1 tab PO QAM 06/03/22 03/14/23 History tiotropium bromide 2.5 2 puff inhalation QAM 06/03/22 03/14/23 History mcg/actuation mist for inhalation (Spiriva Respimat) spironolactone 25 mg tablet 25 mg PO QAM #90 tabs 10/01/22 03/14/23 Rx atorvastatin 40 mg tablet 40 mg PO QAM #90 tabs 10/07/22 03/14/23 Rx sacubitril 97 mg-valsartan 103 mg 1 tab PO BID #180 tabs 11/18/22 03/14/23 Rx tablet (Entresto) levothyroxine 100 mcg tablet 100 mcg PO QAM #90 tabs 12/11/22 03/14/23 Rx furosemide 20 mg tablet 20 mg PO QAM #90 tabs 03/06/23 03/14/23 Rx Past Med/Surg History Medical History Sensorineural hearing loss of both ears Tinnitus, bilateral History of pulmonary embolism (04/2020) presumed during COVID illness (no documented imaging) Chronic systolic CHF (congestive heart failure) Due to COVID Cardiomyopathy DUE TO COVID Vitamin B12 deficiency ARDS (adult respiratory distress syndrome) due to COVID Depression Hyperlipidemia Pneumonia due to COVID-19 virus (04/2020) Acute respiratory failure with hypoxia (04/2020) HX COVID 2020 - had blood clot in lung and on ventilator in [facility] Hypothyroidism Surgical History S/P endometrial ablation (2009) S/P total knee replacement (01/2017) L knee History of carpal tunnel surgery bilateral H/O cataract removal with insertion of prosthetic lens bilateral History of bladder surgery Bladder Tack Status post tubal ligation Family History Mother Myocardial infarction, Onset Age: 30 Coronary heart disease Diabetes Hypertension Father Liver cirrhosis Alcoholism Brother No problems noted. Sister Thyroid disease Denies family history of Ovarian cancer Prostate cancer Breast cancer Colorectal cancer Social History Smoking Status: Former smoker Tobacco Type: Cigarettes Age Started Using Tobacco: 12; Age Quit Using Tobacco: 50; packs per day: 1.5; Cigarettes Per Day: 1.4MLIr46 YEARS; Second Hand Exposure: No; Do You Dip or Chew Tobacco: No; Tobacco Cessation Education Requested by Patient: No Hx Alcohol Use: Yes Alcohol type: wine Alcohol Intake Frequency: 4 or More x per/Week Alcohol Intake Frequency Comment: daily Hx Substance Use: No Preferred Language: Swazi Communication Ability: Effective Visual Impairment: No Limitations Hearing Ability: Normal Valance Cutter Required: No Beliefs That Will Affect Care: None marital status: Current Living Situation: Spouse current occupational status: employed current occupation: [employer] [employer] How many Children do You have: 4 How many Children do You have Comment: and 2 step sons Feels Safe at Home: Yes Safety Concerns: Feels Safe At This Time Childhood Exposure to Second-Hand Smoke: Yes (father ) Diet: regular caffeine: Yes during the past year weight has: remained stable Dental Care, Regularly: Yes Physical Activity Frequency: Does not Exercise Seatbelt Use: always Sunscreen Use: No Assistive Devices: None Review of Systems Review of Systems: The patient denies chest pain, palpitations, shortness of breath, dyspnea on exertion, cough, lower extremity swelling, sore throat, fevers, chills, sweats, nausea, vomiting, diarrhea , constipation, abdominal pain, pelvic pain, blood in urine or stool, dysuria, urinary frequency or urgency, headache, memory loss, loss of consciousness, rash, abnormal bruising or bleeding, imbalance, focal or generalized weakness, numbness or tingling in arms or legs, generalized arthralgias or myalgias, back or neck pain, or night sweats. The review of systems is otherwise negative other than for that already noted above, and at least 10 systems have been reviewed. Physical Exam Physical Exam: The patient is awake, alert and oriented 3, well developed and well nourished, normocephalic and atraumatic, lying in bed and in no acute distress. HEENT--PERRL, EOMI, mucous membranes and oropharynx mildly dry. Neck--supple. No JVD. No bruits. Thyroid normal, trachea midline, no adenopathy. Heart--normal S1 and S2. No murmurs, rubs or gallops. Lungs--clear bilaterally, no respiratory distress, no accessory muscle use. Abdomen--normal bowel sounds and soft. Nontender. Nondistended, no hernias or masses, no organomegaly. Extremities--no cyanosis or clubbing. No edema. Dermatologic--normal skin turgor, normal color, no abnormal lymph nodes, no rash. Neurologic--cranial nerves II through XII grossly intact. Rheumatologic--normal range of motion. Psychiatric--normal affect. Results & Data Results & Data Vital Signs (Past 12 Hours) Vital Signs Temp Pulse Pulse Resp BP BP Pulse Ox 03/14/23 20:37 79 20 144/76 H 97 03/14/23 20:37 97 03/14/23 20:37 97 03/14/23 19:56 72 03/14/23 18:42 79 03/14/23 18:20 140 H 129/99 03/14/23 18:16 140 H 18 129/99 95 03/14/23 17:49 141 H 106/79 03/14/23 17:46 137 H 20 106/79 95 03/14/23 17:30 138 H 23 117/88 94 03/14/23 17:00 139 H 22 110/70 94 03/14/23 16:33 144 H 123/95 03/14/23 16:30 144 H 20 123/95 93 03/14/23 16:29 144 H 22 142/95 H 97 03/14/23 16:00 146 H 16 95/73 L 92 03/14/23 15:34 149 H 03/14/23 15:10 36.7 C 147 H 18 157/111 H 94 O2 Del Method 03/14/23 20:37 Room Air 03/14/23 20:37 Room Air 03/14/23 20:37 Room Air 03/14/23 19:56 03/14/23 18:42 03/14/23 18:20 03/14/23 18:16 03/14/23 17:49 03/14/23 17:46 03/14/23 17:30 03/14/23 17:00 03/14/23 16:33 03/14/23 16:30 03/14/23 16:29 03/14/23 16:00 03/14/23 15:34 03/14/23 15:10 Room Air Laboratory Results Laboratory Results WBC 6.58 K/ul (4.8-10.8) 03/14/23 15: RBC 4.76 M/uL (4.20-5.40) 03/14/23 15:22 Hgb 13.9 g/dl (12.0-16.0) 03/14/23 15:22 Hct 42.1 % (37.0-47.0) 03/14/23 15:22 MCV 88.4 fL (80.0-100.0) 03/14/23 15:22 MCH 29.2 pg (25.0-34.0) 03/14/23 15: MCHC 33.0 g/dL (32.0-36.0) 03/14/23 15:22 RDW Std Deviation 39.4 fL (36.4-46.3) 03/14/23 15:22 RDW Coeff of Julia 12.2 % (11.5-14.5) 03/14/23 15: Plt Count 299 K/uL (130-400) 03/14/23 15:22 MPV 9.2 fL (9.4-12.4) L 03/14/23 15:22 Immature Gran % (Auto) 0.5 % 03/14/23 15:22 Neut % (Auto) 59.7 % 03/14/23 15:22 Lymph % (Auto) 28.0 % 03/14/23 15:22 [place] % (Auto) 7.9 % 03/14/23 15:22 Eos % (Auto) 3.0 % 03/14/23 15:22 Baso % (Auto) 0.9 % 03/14/23 15:22 Neut # (Auto) 3.93 K/uL (1.40-6.50) 03/14/23 15:22 Lymph # (Auto) 1.84 K/uL (1.20-3.40) 03/14/23 15:22 [place] # (Auto) 0.52 K/uL (0.11-0.59) 03/14/23 15:22 Eos # (Auto) 0.20 K/uL (0.00-0.50) 03/14/23 15:22 Baso # (Auto) 0.06 K/uL (0.00-0.20) 03/14/23 15:22 Immature Gran # (Auto) 0.03 K/uL (0.01-0.20) 03/14/23 15:22 PT 10.2 Seconds (9.0-12.0) 03/14/23 15:17 INR 0.9 (0.9-1.1) 03/14/23 15:17 APTT 20 Seconds (21-31) L 03/14/23 15:17 PTT Ratio 0.7 03/14/23 15:17 D-Dimer 540 ug/L FEU (0-500) H* 03/14/23 15:17 Sodium 140 mmol/L (136-145) 03/14/23 16:59 Potassium 3.7 mmol/L (3.5-5.1) 03/14/23 16:59 Chloride 106 mmol/L (98-107) 03/14/23 15:17 Carbon Dioxide 22 mmol/L (21-32) 03/14/23 15:17 Anion Gap TNP 03/14/23 15:17 BUN 26 mg/dl (6-23) H 03/14/23 15:17 Creatinine 0.90 mg/dl (0.6-1.2) 03/14/23 15:17 Est Cr Clr Drug Dosing 55.7 ml/min 03/14/23 15:17 Est GFR ( Amer) 78.9 ml/min 03/14/23 15:17 Est GFR (Non-Af Amer) 68.0 ml/min 03/14/23 15:17 BUN/Creatinine Ratio 28.9 (10-20) H 03/14/23 15:17 Glucose 115 mg/dl (70-99(Fasting)) H 03/14/23 15:17 Calcium 9.3 mg/dl (8.6-10.3) 03/14/23 15:17 Phosphorus 3.8 mg/dl (2.5-4.9) 03/14/23 16:59 Magnesium 1.8 mg/dl (1.7-2.4) 03/14/23 16:59 Total Bilirubin 0.4 mg/dl (0.2-1.0) 03/14/23 15:17 AST 18 U/L (13-39) 03/14/23 16:59 ALT 19 U/L (7-52) 03/14/23 15:17 Alkaline Phosphatase 71 U/L (34-104) 03/14/23 15:17 Troponin I High Sens < 2.3 pg/ml (0-14) 03/14/23 15:17 Total Protein 7.7 gm/dl (6.0-8.3) 03/14/23 15:17 Albumin 4.5 gm/dl (3.4-5.0) 03/14/23 15:17 Globulin 3.2 gm/dl (2.5-4.0) 03/14/23 15:17 Albumin/Globulin Ratio 1.4 (0.9-2) 03/14/23 15:17 Lipase 44 U/L (11-82) 03/14/23 15:17 Urine Color Cancelled 03/14/23 Unknown Urine Appearance Cancelled 03/14/23 Unknown Urine pH Cancelled 03/14/23 Unknown Ur Specific [place] Cancelled 03/14/23 Unknown Urine Protein Cancelled 03/14/23 Unknown Urine Glucose (UA) Cancelled 03/14/23 Unknown Urine Ketones Cancelled 03/14/23 Unknown Urine Blood Cancelled 03/14/23 Unknown Urine Nitrite Cancelled 03/14/23 Unknown Urine Bilirubin Cancelled 03/14/23 Unknown Urine Urobilinogen Cancelled 03/14/23 Unknown Ur Leukocyte Esterase Cancelled 03/14/23 Unknown Urine WBC (Auto) Cancelled 03/14/23 Unknown Urine RBC (Auto) Cancelled 03/14/23 Unknown U Hyaline Cast (Auto) Cancelled 03/14/23 Unknown U Epithel Cells (Auto) Cancelled 03/14/23 Unknown Urine Bacteria (Auto) Cancelled 03/14/23 Unknown Ur Renal Epithelial Cell Cancelled 03/14/23 Unknown Urine Crystals Cancelled 03/14/23 Unknown Calcium Oxalate Crystal Cancelled 03/14/23 Unknown Uric Acid Crystals Cancelled 03/14/23 Unknown Triple Phos Crystals Cancelled 03/14/23 Unknown Other Crystals Cancelled 03/14/23 Unknown Amorphous Sediment Cancelled 03/14/23 Unknown Granular Casts Cancelled 03/14/23 Unknown Waxy Casts Cancelled 03/14/23 Unknown RBC Casts Cancelled 03/14/23 Unknown WBC Casts Cancelled 03/14/23 Unknown Other Casts Cancelled 03/14/23 Unknown Urine Mucus Cancelled 03/14/23 Unknown Urine Other Cancelled 03/14/23 Unknown Urine Trichomonas Cancelled 03/14/23 Unknown Urine Yeast Cancelled 03/14/23 Unknown Urine Sperm Cancelled 03/14/23 Unknown Ur Oval Fat Bodies Cancelled 03/14/23 Unknown Impressions Chest X-Ray 03/14/23 15:14 XR chest 1V not portable HISTORY: 62 years-old Female Chest pain, nonspecific COMPARISON: 04/26/2021 TECHNIQUE: AP view of the chest FINDINGS: Cardiomediastinal and hilar silhouettes are unchanged. Emphysema with chronic interstitial coarsening. No pneumothorax, pleural effusion or airspace consolidation. Bones appear grossly intact. Healed chronic left clavicular fracture deformity. Atherosclerosis of the aorta. IMPRESSION: Emphysema without acute process of the chest. ACT 112: Negative or not required by law. The above report was generated using voice recognition software. It may contain grammatical, syntax or spelling errors. Electronically signed by: González Manzano M.D. 03/14/2023 4:14 PM Chest CTA 03/14/23 16:12 CT ANGIOGRAPHY OF THE CHEST, PULMONARY EMBOLUS PROTOCOL CLINICAL HISTORY: Shortness of breath. Tachycardia. Evaluate for pulmonary embolus. COMPARISON STUDY: Chest CT April 16, 2021 chest radiograph performed earlier today. TECHNIQUE: Following IV administration of 119 mL of Optiray, helical axial images of the chest were obtained utilizing the pulmonary embolus protocol. Maximal intensity projections and sagittal and coronal reformats were viewed on an independent 3D workstation. IV contrast was administered without complication. Automated exposure control was utilized for the study. A dose lowering technique was utilized adhering to the principles of ALARA. CT DOSE: 641.29 mGy.cm FINDINGS: No pulmonary emboli are identified. There is no pericardial effusion. A prominent right hilar lymph node is unchanged since prior CT of April 26, 2021. Moderate coronary artery calcifications are present. Size of the heart is at the upper limits of normal. There is no pneumothorax or pleural effusion. There is no consolidation to suggest pneumonia. Moderate upper lobe predominant emphysema is present. No acute fractures within the bony thorax are noted. There is reflux of contrast into the IVC and hepatic veins. IMPRESSION: 1. No pulmonary emboli identified. 2. No acute intrathoracic findings. ACT 112: Negative or not required by law. Electronically signed by: Peter Lewis M.D. 03/14/2023 5:32 PM Code Status & VTE Plan Code Status Full code VTE Prophylaxis Plan VTE Prophylaxis will be ordered: Yes PG Care Time/CCT Total # of Minutes Spent Total Time Spent with Patient: Total time spent is greater than 50% in coordination of care (as documented) at patient's floor/unit and/or counseling patient: Coding Level of Care Code 12249 INT INP/OBS CARE 3/75MIN Diagnoses History of cardiomyopathy Z86.79 Atrial flutter with rapid ventricular response I48.92 Paroxysmal atrial flutter I48.92 GERD (gastroesophageal reflux disease) K21.9 Chronic systolic CHF (congestive heart failure) I50.22 Cardiomyopathy I42.9 Hyperlipidemia E78.5 Hypothyroidism E03.9 Vitamin B12 deficiency E53.8
[2023-03-14] MEDS ORDERED: ACETAMINOPHEN 325 MG TAB PO PRN (23:33)
[2023-03-14] MEDS ORDERED: ONDANSETRON INJ 2 MG/ML 2 ML VIAL IV PRN (23:33)
[2023-03-15] MEDS ORDERED: METOPROLOL TARTRATE 1 MG/ML VIAL IV PRN (02:18)
[2023-03-15] MEDS ORDERED: Heparin IV Adult Wt-Based Standard *NO* INITIAL Bolus Protocol IV STA (02:38)
[2023-03-15] MEDS ORDERED: METOPROLOL TARTRATE 50 MG TAB PO STA (02:38)
[2023-03-15] MEDS ORDERED: HEPARIN SODIUM/DEXTROSE 25,000 UNITS/500 ML BAG IV SCH (03:00)
[2023-03-15 04:04] LABS: Basophils # (auto) 0.04 K/uL (0.00-0.20); Basophils % (auto) 0.8 %; Eosinophils # (auto) 0.23 K/uL (0.00-0.50); Eosinophils % (auto) 4.3 %; Hematocrit (blood only) 40.2 % (37.0-47.0); Hemoglobin 13.5 g/dl (12.0-16.0); Lymphocytes # (auto) 1.83 K/uL (1.20-3.40); Lymphocytes % (auto) 34.5 %; Mean Corpuscular Hemoglobin 29.5 pg (25.0-34.0); Mean Corpuscular Hgb Conc 33.6 g/dL (32.0-36.0); Monocytes # (auto) 0.47 K/uL (0.11-0.59); Monocytes % (auto) 8.9 %; Neutrophils # (auto) 2.73 K/uL (1.40-6.50); Neutrophils % (auto) 51.5 %; Platelet Count 254 K/uL (130-400); RDW Coefficient of Variation 12.3 % (11.5-14.5); RDW Standard Deviation 39.3 fL (36.4-46.3); Red Blood Count 4.57 M/uL (4.20-5.40)
[2023-03-15 04:21] LABS: Albumin Level 3.9 gm/dl (3.4-5.0); BUN Creatinine Ratio 28.4 (10-20); Calcium 8.7 mg/dl (8.6-10.3); Creatinine Clr Calc Pharmacy 83.1 ml/min; Est GFR (African American) 108.4 ml/min; Est GFR (Non-African American) 93.5 ml/min; Magnesium 2.1 mg/dl (1.7-2.4); Phosphorus 3.8 mg/dl (2.5-4.9); Potassium 4.2 mmol/L (3.5-5.1)
[2023-03-15 04:44] LABS: Partial Thromboplastin Ratio 0.9; Partial Thromboplastin Time 26 Seconds (21-31); Prothrombin Time 10.6 Seconds (9.0-12.0)
[2023-03-15] MEDS ORDERED: METOPROLOL SUCC 50MG EXT REL TAB PO STA (05:18)
[2023-03-15] MEDS ORDERED: LEVOTHYROXINE SODIUM 100 MCG TABLET PO SCH (06:30)
--- NOTE | 2023-03-15 07:10 | Electrocardiogram Report ---
Test Reason : Blood Pressure : / mmHG Vent. Rate : 138 BPM Atrial Rate : 000 BPM P-R Int : 000 ms QRS Dur : 074 ms QT Int : 314 ms P-R-T Axes : 000 070 018 degrees QTc Int : 475 ms Supraventricular tachycardia Low voltage QRS T wave abnormality, consider anterior ischemia Abnormal ECG When compared with ECG of 14-MAR-2023 15:21, No significant change was found Confirmed by Antony Padilla ([id number]) on 03/15/2023 7:10:30 AM Referred By: REFERRED SELF Confirmed By:Ellis Padilla
--- NOTE | 2023-03-15 07:15 | Electrocardiogram Report ---
Test Reason : Blood Pressure : / mmHG Vent. Rate : 075 BPM Atrial Rate : 075 BPM P-R Int : 182 ms QRS Dur : 076 ms QT Int : 388 ms P-R-T Axes : 009 047 022 degrees QTc Int : 433 ms Normal sinus rhythm Low voltage QRS Incomplete right bundle branch block T wave abnormality, consider anterior ischemia Abnormal ECG When compared with ECG of 14-MAR-2023 18:28, (unconfirmed) Vent. rate has decreased BY 63 BPM Confirmed by Antony Padilla ([id number]) on 03/15/2023 7:14:46 AM Referred By: REFERRED SELF Confirmed By:Ellis Padilla
[2023-03-15] MEDS: METOPROLOL TARTRATE 1 MG/ML VIAL IV STA ×2 (07:16→07:41)
[2023-03-15] MEDS ORDERED: METOPROLOL SUCC 50MG EXT REL TAB PO SCH ×2 (09:00)
[2023-03-15] MEDS ORDERED: FUROSEMIDE 20 MG TAB PO SCH (09:00)
[2023-03-15] MEDS ORDERED: VALSARTAN/SACUBITRIL 103/97MG TAB PO SCH (09:00)
[2023-03-15] MEDS ORDERED: SPIRONOLACTONE 25 MG TAB PO SCH (09:00)
[2023-03-15] MEDS ORDERED: MULTIVITAMIN TAB PO SCH (09:00)
[2023-03-15] MEDS ORDERED: ATORVASTATIN 40 MG TAB PO SCH (09:00)
[2023-03-15] MEDS ORDERED: UMECLIDINIUM BROMIDE 62.5MCG/BLISTER 7 PUFFS/INHALER INH SCH (09:00)
--- NOTE | 2023-03-15 10:01 | Cardiology Consultation ---
Date of Consultation March 15, 2023 Assessment & Plan (1) SVT (supraventricular tachycardia): (2) Cardiomyopathy: Plan 1. 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 This is based primarily on the appearance on telemetry. There are times where the rate slows enough to see discrete atrial activity. It is possible this represents an atypical AVNRT, but I think this is less likely. I do not believe this represents an atrial flutter and as such anticoagulation is not indicated. For treatment. She is already on high-dose beta-blockade which is not been effective in suppressing the arrhythmia. Think she would benefit from antiarrhythmic therapy. Options are limited given her history of cardiomyopathy and late gadolinium enhancement. I think flecainide would be an attractive option but given the findings on her MRI I would favor dronedarone as a first- line agent. Sotalol would also be a good consideration but the patient is anxious to leave the hospital rather than stay for the requisite 3 days. Additionally, catheter based therapy would likely be the best treatment. As this represents an ectopic atrial tachycardia, she would be referred to a larger facility for ablation. At this point I would start dronedarone 400 mg b.i.d.. I would reduce her metoprolol succinate to 150 mg daily. 2. Cardiomyopathy: This appears resolved. LV function has remained normal over a couple of years. She will continue on her current outpatient medical therapy which consists metoprolol, Entresto and spironolactone. History of Present Illness Reason for Consultation: SVT Requesting Physician: Ledy Attending Physician: Osmar Burton MD History of Present Illness Of cardiomyopathy presumed to be related to COVID-19 infection 2020. She presented for routine cardiology evaluation yesterday was noted to be tachycardic. An EKG revealed an SVT. Vagal maneuvers were reportedly ineffectual in she was sent to the emergency room for evaluation. Patient was administered several doses of metoprolol eventually her tachycardia terminate was noted to return over the course of the evening and terminated and restarted a few times before eventually terminating again this morning. The patient has been unaware of any particular symptoms. She specifically denied any sense of tachycardia or rapid heartbeat. She denies dizziness or lightheadedness. She does have an element of mild dyspnea that she says has been present for approximately 1 year. This has not stopped her from performing her usual activities and she attributed to getting older. No chest pain. No exertional chest pain. She does not have any devices at home to monitor her heart rate nor she keep track of her heart rate or blood pressure on a routine basis. At the time my interview she was feeling tired and had little sleep over the course of the evening. No breathing difficulty. No orthopnea. No chest pain or sense of palpitation. Allergies Allergy/AdvReac Type Severity Reaction Status Date / Time No Known Drug Allergies Allergy Verified 03/14/23 14:28 Home Medications Medication Instructions Recorded Confirmed Type metoprolol succinate 100 mg 200 mg PO QAM 06/03/22 03/14/23 History tablet,extended release 24 hr multivitamin 1 tab PO QAM 06/03/22 03/14/23 History tiotropium bromide 2.5 2 puff inhalation QAM 06/03/22 03/14/23 History mcg/actuation mist for inhalation (Spiriva Respimat) spironolactone 25 mg tablet 25 mg PO QAM #90 tabs 10/01/22 03/14/23 Rx atorvastatin 40 mg tablet 40 mg PO QAM #90 tabs 10/07/22 03/14/23 Rx sacubitril 97 mg-valsartan 103 mg 1 tab PO BID #180 tabs 11/18/22 03/14/23 Rx tablet (Entresto) levothyroxine 100 mcg tablet 100 mcg PO QAM #90 tabs 12/11/22 03/14/23 Rx furosemide 20 mg tablet 20 mg PO QAM #90 tabs 03/06/23 03/14/23 Rx Patient History Medical History Sensorineural hearing loss of both ears Tinnitus, bilateral History of pulmonary embolism (04/2020) presumed during COVID illness (no documented imaging) Chronic systolic CHF (congestive heart failure) Due to COVID Cardiomyopathy DUE TO COVID Vitamin B12 deficiency ARDS (adult respiratory distress syndrome) due to COVID Depression Hyperlipidemia Pneumonia due to COVID-19 virus (04/2020) Acute respiratory failure with hypoxia (04/2020) HX COVID 2020 - had blood clot in lung and on ventilator in [facility] Hypothyroidism Surgical History S/P endometrial ablation (2009) S/P total knee replacement (01/2017) L knee History of carpal tunnel surgery bilateral H/O cataract removal with insertion of prosthetic lens bilateral History of bladder surgery Bladder Tack Status post tubal ligation Family History Mother Myocardial infarction, Onset Age: 30 Coronary heart disease Diabetes Hypertension Father Liver cirrhosis Alcoholism Brother No problems noted. Sister Thyroid disease Denies family history of Ovarian cancer Prostate cancer Breast cancer Colorectal cancer Social History Smoking Status: Former smoker Tobacco Type: Cigarettes Age Started Using Tobacco: 12; Age Quit Using Tobacco: 50; packs per day: 1.5; Cigarettes Per Day: [id number] YEARS; Second Hand Exposure: No; Do You Dip or Chew Tobacco: No; Tobacco Cessation Education Requested by Patient: No Hx Alcohol Use: Yes Alcohol type: wine Alcohol Intake Frequency: 4 or More x per/Week Alcohol Intake Frequency Comment: daily Hx Substance Use: No Preferred Language: French Communication Ability: Effective Visual Impairment: No Limitations Hearing Ability: Normal 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 Required: No Beliefs That Will Affect Care: None marital status: Current Living Situation: Spouse current occupational status: employed 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 Mood affect appear normal. She answered all questions appropriately. HEENT: Sclerae are anicteric. Pupils are equal and reactive to light and acco mmodation. Extraocular movements were intact. Neuro: Cranial nerves intact Lungs: Lungs are clear to auscultation bilaterally. There are no rales wheezes or rhonchi. She has normal respiratory effort without use of accessory muscles. There is normal pulmonary excursion. Cardiac: The rhythm was regular. S1 and S2 were normal. There are no murmurs on examination. The PMI was not markedly displaced on palpation. Extremities: Patient has bilateral radial pulses that are equal in intensity. There is no evidence cyanosis or clubbing. There was no evidence of significant peripheral edema bilaterally. Skin: There are no rashes noted on examination today. Results & Data Vital Signs (Past 12 Hours) Vital Signs Temp Pulse Pulse Resp BP BP Pulse Ox 03/15/23 09:30 65 17 93 03/15/23 09:00 76 17 98 03/15/23 08:30 65 14 94 03/15/23 08:00 70 17 97 03/15/23 08:00 36.5 C 03/15/23 07:35 73 18 97 03/15/23 07:35 138/81 03/15/23 05:14 77 109/66 03/15/23 04:59 132 H 119/81 03/15/23 01:37 36.6 C 136 H 16 110/79 94 03/15/23 01:31 140 H 16 98 03/15/23 01:00 110/79 03/15/23 01:00 134 H 18 94 03/15/23 00:30 133 H 20 93 03/15/23 00:05 129 H 03/15/23 00:00 123/81 03/15/23 00:00 128 H 12 99 03/14/23 23:55 37.6 C H 120 H 14 123/81 96 03/14/23 23:55 03/14/23 23:30 80 21 96 03/14/23 23:25 36.6 C 137/80 03/14/23 23:25 98 03/14/23 23:00 83 17 95 03/14/23 23:00 113/66 03/14/23 22:36 83 03/14/23 22:00 81 16 108/84 95 Pulse Ox O2 Del Method O2 Del Method 03/15/23 09:30 03/15/23 09:00 03/15/23 08:30 03/15/23 08:00 03/15/23 08:00 03/15/23 07:35 Room Air 03/15/23 07:35 03/15/23 05:14 03/15/23 04:59 03/15/23 01:37 Room Air 03/15/23 01:31 03/15/23 01:00 03/15/23 01:00 03/15/23 00:30 03/15/23 00:05 03/15/23 00:00 03/15/23 00:00 03/14/23 23:55 Room Air 03/14/23 23:55 96 Room Air 03/14/23 23:30 03/14/23 23:25 03/14/23 23:25 03/14/23 23:00 03/14/23 23:00 03/14/23 22:36 03/14/23 22:00 Room Air Laboratory Results Abnormal Lab Results 03/14/23 03/14/23 03/14/23 15:17 15:22 16:59 WBC 6.58 RBC 4.76 Hgb 13.9 Hct 42.1 MCV 88.4 MCH 29.2 MCHC 33.0 RDW Std Deviation 39.4 RDW Coeff of Julia 12.2 Plt Count 299 MPV 9.2 L Immature Gran % (Auto) 0.5 Neut % (Auto) 59.7 Lymph % (Auto) 28.0 [place] % (Auto) 7.9 Eos % (Auto) 3.0 Baso % (Auto) 0.9 Neut # (Auto) 3.93 Lymph # (Auto) 1.84 [place] # (Auto) 0.52 Eos # (Auto) 0.20 Baso # (Auto) 0.06 Immature Gran # (Auto) 0.03 PT 10.2 INR 0.9 APTT 20 L PTT Ratio 0.7 D-Dimer 540 H* Sodium TNP 140 Potassium TNP 3.7 Chloride 106 Carbon Dioxide 22 Anion Gap TNP BUN 26 H Creatinine 0.90 Est Cr Clr Drug Dosing 55.7 Est GFR ( Amer) 78.9 Est GFR (Non-Af Amer) 68.0 BUN/Creatinine Ratio 28.9 H Glucose 115 H Calcium 9.3 Phosphorus 3.8 Magnesium 1.8 Total Bilirubin 0.4 AST TNP 18 ALT 19 Alkaline Phosphatase 71 Troponin I High Sens < 2.3 Total Protein 7.7 Albumin 4.5 Globulin 3.2 Albumin/Globulin Ratio 1.4 Lipase 44 Urine Color Yellow Urine Appearance Clear Urine pH 5.5 Ur Specific [place] 1.012 Urine Protein Negative Urine Glucose (UA) Negative Urine Ketones Negative Urine Blood 1+ H Urine Nitrite Negative Urine Bilirubin Negative Urine Urobilinogen Negative Ur Leukocyte Esterase Trace H Urine WBC (Auto) 1-5 Urine RBC (Auto) 0-4 U Hyaline Cast (Auto) 1-5 U Epithel Cells (Auto) 10-20 H Urine Bacteria (Auto) Negative Ur Renal Epithelial Cell Urine Crystals Calcium Oxalate Crystal Uric Acid Crystals Triple Phos Crystals Other Crystals Amorphous Sediment Granular Casts Waxy Casts RBC Casts WBC Casts Other Casts Urine Mucus Urine Other Urine Trichomonas Urine Yeast Urine Sperm Ur Oval Fat Bodies 03/14/23 03/15/23 Unknown 03:52 WBC 5.30 RBC 4.57 Hgb 13.5 Hct 40.2 MCV 88.0 MCH 29.5 MCHC 33.6 RDW Std Deviation 39.3 RDW Coeff of Julia 12.3 Plt Count 254 MPV 9.0 L Immature Gran % (Auto) 0.0 Neut % (Auto) 51.5 Lymph % (Auto) 34.5 [place] % (Auto) 8.9 Eos % (Auto) 4.3 Baso % (Auto) 0.8 Neut # (Auto) 2.73 Lymph # (Auto) 1.83 [place] # (Auto) 0.47 Eos # (Auto) 0.23 Baso # (Auto) 0.04 Immature Gran # (Auto) 0.00 L PT 10.6 INR 1.0 APTT 26 PTT Ratio 0.9 D-Dimer Sodium 140 Potassium 4.2 Chloride 109 H Carbon Dioxide 24 Anion Gap 7 BUN 19 Creatinine 0.67 Est Cr Clr Drug Dosing 83.1 Est GFR ( Amer) 108.4 Est GFR (Non-Af Amer) 93.5 BUN/Creatinine Ratio 28.4 H Glucose 113 H Calcium 8.7 Phosphorus 3.8 Magnesium 2.1 Total Bilirubin AST ALT Alkaline Phosphatase Troponin I High Sens Total Protein Albumin 3.9 Globulin Albumin/Globulin Ratio Lipase Urine Color Cancelled Urine Appearance Cancelled Urine pH Cancelled Ur Specific [place] Cancelled Urine Protein Cancelled Urine Glucose (UA) Cancelled Urine Ketones Cancelled Urine Blood Cancelled Urine Nitrite Cancelled Urine Bilirubin Cancelled Urine Urobilinogen Cancelled Ur Leukocyte Esterase Cancelled Urine WBC (Auto) Cancelled Urine RBC (Auto) Cancelled U Hyaline Cast (Auto) Cancelled U Epithel Cells (Auto) Cancelled Urine Bacteria (Auto) Cancelled Ur Renal Epithelial Cell Cancelled Urine Crystals Cancelled Calcium Oxalate Crystal Cancelled Uric Acid Crystals Cancelled Triple Phos Crystals Cancelled Other Crystals Cancelled Amorphous Sediment Cancelled Granular Casts Cancelled Waxy Casts Cancelled RBC Casts Cancelled WBC Casts Cancelled Other Casts Cancelled Urine Mucus Cancelled Urine Other Cancelled Urine Trichomonas Cancelled Urine Yeast Cancelled Urine Sperm Cancelled Ur Oval Fat Bodies Cancelled Diagnostic Findings 1. Echo 08/16/20 [facility]: Moderately dilated LV with severely reduced EF, 20-25%. Severely hypokinetic to akinetic inferior wall. Otherwise global hypokinesis. No LVH. Moderate left atrial dilation. Mild-moderate MR. Normal RVSP. 2. Cardiac cath 08/18/20 [facility]: Luminal irregularities within mid RCA. LVEDP 20. PCWP 11. PA 27/11 with mean 16. RV 26/5 with EDP 7. Mean RAP 8. CI via TD 2.23. PVR 1.32 3. PFTs 08/22/20 : Normal spirometry without bronchodilator response. Normal lung volumes. 4. Echo 01/18/2021: Normal LV size. Estimated EF 45-50%. Global hypokinesis. Mild LVH. No significant valvular abnormalities. Technically difficult study. 5. Echo 02/14/2022 [facility]: Normal LV size, wall motion, systolic function. EF 55-60%. No significant valvular abnormalities. Chest x-ray was obtained the time admission which did not reveal any acute cardiopulmonary process. Emphysema. Chest CTA was obtained the time admission which did not reveal any evidence of acute pulmonary embolus. 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
--- NOTE | 2023-03-15 10:09 | XCELERA ---
[id number]
[2023-03-15] MEDS ORDERED: DRONEDARONE HCL 400 MG TAB PO SCH ×2 (12:05→21:00)
--- NOTE | 2023-03-15 12:05 | Electrocardiogram Report ---
Test Reason : Blood Pressure : / mmHG Vent. Rate : 074 BPM Atrial Rate : 074 BPM P-R Int : 182 ms QRS Dur : 084 ms QT Int : 424 ms P-R-T Axes : 037 063 036 degrees QTc Int : 470 ms Normal sinus rhythm Low voltage QRS Nonspecific T wave abnormality Prolonged QT Abnormal ECG Confirmed by Antony Padilla ([id number]) on 03/15/2023 12:05:04 PM Referred By: REFERRED SELF Confirmed By:Ellis Padilla
--- NOTE | 2023-03-15 16:08 | Discharge Summary ---
Date of Service March 15, 2023 Admission HPI Per Admitting Provider The patient is a 62-year-old female with a past medical history including cardiomyopathy, GERD, mitral regurgitation, pulmonary embolism associated with COVID-19 infection on 04/27, CHF, depression, hyperlipidemia, hypothyroidism and B12 deficiency. The patient had contracted COVID-19 infection during 04/27, and associated with that had an admission for acute respiratory failure with pulmonary embolism, that required ventilator and proning, and during that admission was noted to have developed cardiomyopathy with decreased ejection fraction. The patient has continue to follow with cardiology for routine visit since that time, and today at a routine cardiology visit, was found to be in a rapid heart rate with question of SVT versus atrial flutter, and was referred by cardiology to the ED for further assessment and admission. The patient reports that she had no sensations of palpitations or chest pain, but does in retrospect feel that she was having some occasional issues with transient lightheadedness for an unknown period of time. Principal Diagnosis Supraventricular tachycardia, atrial ectopy in the setting of cardiomyopathy Discharge Data Allergies Allergy/AdvReac Type Severity Reaction Status Date / Time No Known Drug Allergies Allergy Verified 03/14/23 14:28 Consultations 03/14/23 19:07 ED Decision to Admit Stat 03/14/23 23:33 Consult Cardiology Routine Ordered Studies 03/14/23 16:12 CT angio chest PE protocol Stat Hospital Course (1) SVT (supraventricular tachycardia): SVT: The mechanism of her SVT appears to be an ectopic atrial tachycardia as per cardiology. As per cardiology It is possible this represents an atypical AVNRT, but I think this is less likely. Cardiology do not believe this represents an atrial flutter and as such anticoagulation is not indicated. For treatment as per cardiology: " She is already on high-dose beta-blockade which is not been effective in suppressing the arrhythmia. Think she would benefit from antiarrhythmic therapy. Options are limited given her history of cardiomyopathy and late gadolinium enhancement. I think flecainide would be an attractive option but given the findings on her MRI I would favor dronedarone as a first-line agent. Sotalol would also be a good consideration but the patient is anxious to leave the hospital rather than stay for the requisite 3 days. Additionally, catheter based therapy would likely be the best treatment. As this represents an ectopic atrial tachycardia, she would be referred to a larger facility for ablation." Patient was discharged on Multaq, the dose of metoprolol was decreased to 150 mg daily, patient we will follow-up with cardiology (2) Cardiomyopathy: Possibly related to COVID, continue spironolactone, Entresto and beta-mary followed by cardiology outpatient (3) GERD (gastroesophageal reflux disease): (4) Hyperlipidemia: (5) Hypothyroidism: (6) Vitamin B12 deficiency: Total Time Total Time Spent Total Time Spent (In Minutes): 45 Discharge Plan Discharge Items Patient Disposition: Home - Self-Care Reason For Visit: PAROXYSMAL ATRIAL FLUTTER Discharge Diagnosis: SUPRAVENTRICULAR TACHYCARDIA Activity: Resume your previous activity Lifting: Gradually increase as tolerated Bathing: No limitations Sexual Activity: When tolerated Exercise/Sports: Gradually increase as tolerated Driving/Machine Use: No limitations Weightbearing: Full weightbearing Non-emergency contact: Primary Care Provider and Cru[facility] Packer Call non-emergency contact if: you have any medication questions Follow-up/Referrals: Renae Pickens DO [Primary Care Provider] - (Patient already has PCP appt scheduled for 03/18/23.) Diet: Low Sodium (2gm) Addtl Attending Provider Instructions: PLEASE FOLLOW WITH YOUR SENIOR CLINICAL CONSULTANT YOU INSTRUCTED Pending Studies at Discharge: No Stand-Alone Forms: [facility] MyClasses, Work/School Release, Smoking Cessation Medications and DC Order Prescriptions: New Multaq 400 mg Tablet 400 mg PO BID Qty: 120 0RF metoprolol succinate 50 mg Tablet Extended Release 24 Hr 150 mg PO QAM Qty: 120 0RF Multaq 400 mg tablet 400 mg PO BID Qty: 5 0RF Rx Instructions: must administer with a meal/food Continued spironolactone 25 mg tablet 25 mg PO QAM Qty: 90 3RF atorvastatin 40 mg tablet 40 mg PO QAM Qty: 90 1RF Entresto 97-103 mg tablet 1 tab PO BID Qty: 180 3RF levothyroxine 100 mcg tablet 100 mcg PO QAM Qty: 90 0RF furosemide 20 mg tablet 20 mg PO QAM Qty: 90 3RF multivitamin Tablet 1 tab PO QAM Spiriva Respimat 2.5 mcg/actuation mist 2 puff inhalation QAM Discontinued metoprolol succinate 100 mg tablet extended release 24 hr 200 mg PO QAM Discharge Orders: Discharge Order (Routine); Ordered 03/15/23 Ordered By: Osmar Burton Admission Data Admit Date/Time: 03/14/23 20:59 Attending Provider: Osmar Burton Admit Provider: Marco Villafana Primary Care Provider: Renae Pickens Other Providers: Marco Villafana; Antony Padilla Other Interventions: Discharge Summary Assessment (RN) Last Done: 03/15/23 14:05 Coding Level of Care Code 32914 INP/OBS DISCH >30 MIN Diagnoses SVT (supraventricular tachycardia) 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
== END 2023-03-15 16:45 | disposition home or self-care (01) | DRG 309 ==
LOC: SUATTDRO → ED 14:51 → INTOOBSV 20:59 → 1E 20:59 → SUATTDRO 20:59 → 1E 22:34